=== PATIENT | male | born 1970 | race Hispanic/Latino ===

== ENCOUNTER 2018-06-17 09:04 | Emergency (ER) | payer SELFPAY ==
[2018-06-17 09:25] LABS: BASOPHILS % (AUTO) 1.2 % (0.0-5.0); EOSINOPHILS % (AUTO) 3.8 % (0.0-8.0); LYMPHOCYTES % (AUTO) 23.6 % (21.0-51.0); MEAN CORPUSCULAR HEMOGLOBIN 29.9 pg (27.0-33.0); MEAN CORPUSCULAR HGB CONC 33.9 g/dL (32.0-36.0); MEAN CORPUSCULAR VOLUME 88.2 fL (79-99); MONOCYTES % (AUTO) 7.1 % (3.0-13.0); NEUTROPHILS % (AUTO) 64.3 % (40.0-77.0); PLATELET COUNT (AUTO) 278 K/uL (130-400); RED BLOOD CELL COUNT(AUTO) 4.65 MIL/uL (4.50-6.20); RED CELL DISTRIBUTION WIDTH 13.2 % (11.0-15.5)
[2018-06-17 09:38] LABS: ALBUMIN 3.5 g/dL (3.5-5.0); BILIRUBIN,TOTAL 0.4 mg/dL (0.2-1.0); CREATININE 1.3 mg/dL (0.5-1.5); POTASSIUM 3.6 mmol/L (3.5-5.1); TOTAL PROTEIN, SERUM 7.8 g/dL (6.0-8.3)
[2018-06-17] MEDS ORDERED: INSULIN HUMULIN R 100 UNIT/ML 3ML ONE (11:00)
== END 2018-06-17 12:32 | disposition home or self-care (01) ==
LOC: EDH 09:04
DX: R07.89 Other chest pain (principal); F14.10 Cocaine abuse, uncomplicated; Z72.0 Tobacco use
CPT/HCPCS: 36415; 80053; 84484 ×2; 85025; 93005; 96374; 99285; J1815

== ENCOUNTER 2019-08-26 09:11 | Emergency (ER) | payer OTHER ==
[2019-08-26 09:41] LABS: BASOPHILS % (AUTO) 0.7 % (0.0-5.0); EOSINOPHILS % (AUTO) 1.2 % (0.0-8.0); HEMATOCRIT 46.6 % (42-54); LYMPHOCYTES % (AUTO) 20.6 % (21.0-51.0); MEAN CORPUSCULAR HEMOGLOBIN 28.5 pg (27.0-33.0); MEAN CORPUSCULAR HGB CONC 32.8 g/dL (32.0-36.0); MEAN CORPUSCULAR VOLUME 86.9 fL (79-99); MONOCYTES % (AUTO) 4.6 % (3.0-13.0); NEUTROPHILS % (AUTO) 72.5 % (40.0-77.0); PLATELET COUNT (AUTO) 324 K/uL (130-400); RED BLOOD CELL COUNT(AUTO) 5.36 MIL/uL (4.50-6.20); RED CELL DISTRIBUTION WIDTH 11.9 % (11.0-15.5); WHITE BLOOD COUNT (AUTO) 12.7 K/uL (4.8-10.8)
[2019-08-26] MEDS ORDERED: SODIUM CHLORIDE 0.9% 1000ML 1,000 ML IV ONE ×2 (09:41→11:06)
[2019-08-26 09:47] LABS: APPEARANCE,URINE Clear (CLEAR); BILIRUBIN,URINE Negative (NEGATIVE); COLOR,URINE Yellow (YELLOW); GLUCOSE, URINE (UA) >=1000 mg/dL (NEGATIVE); KETONES,URINE Negative (NEGATIVE); LEUKOCYTE ESTERASE ,URINE Trace (NEGATIVE); NITRATE,URINE Negative (NEGATIVE); OCCULT BLOOD,URINE Negative (NEGATIVE); PROTEIN,URINE Negative (NEGATIVE); UROBILINOGEN,URINE 0.2 mg/dL (0.2-1.0)
[2019-08-26 09:48] LABS: POTASSIUM 4.6 mmol/L (3.5-5.1)
[2019-08-26 09:53] LABS: BILIRUBIN,TOTAL 0.5 mg/dL (0.2-1.0); TOTAL PROTEIN, SERUM 9.1 g/dL (6.0-8.3)
[2019-08-26 09:57] LABS: BACTERIA,URINE Rare /HPF (None Seen); SQUAMOUS EPITHELIAL CELL,UR Rare /HPF (0-2)
[2019-08-26 10:10] LABS: ABG OXYGEN SATURATION 47.6 % (95.0-99.0); BASE EXCESS,VENOUS BLOOD GAS -1.5 (-2.0-3.0); HCO3,VENOUS BLOOD GAS 25.1 (21.0-28.0); PCO2,VENOUS BLOOD GAS 49 (35-48); PH,VENOUS BLOOD GAS 7.327 (7.350-7.450)
[2019-08-26] MEDS ORDERED: INSULIN HUMULIN R 100 UNIT/ML 3ML ONE (10:25)
== END 2019-08-26 12:31 | disposition home or self-care (01) ==
LOC: EDH 09:11
DX: E11.65 Type 2 diabetes mellitus with hyperglycemia (principal); R20.8 Other disturbances of skin sensation; Z72.0 Tobacco use
CPT/HCPCS: 36415; 36600; 71045; 80053; 81001; 82010; 82803; 82948 ×2; 85025; 93005; 96361 ×2; 96374; 99285; J1815; J7030 ×2

== ENCOUNTER 2020-03-02 17:17 | Emergency (ER) | payer OTHER, SELFPAY ==
[2020-03-02 20:40] LABS: ALBUMIN 3.8 g/dL (3.5-5.0); BILIRUBIN,TOTAL 0.3 mg/dL (0.2-1.0); CREATININE 1.1 mg/dL (0.5-1.5); POTASSIUM 3.9 mmol/L (3.5-5.1); TOTAL PROTEIN, SERUM 8.5 g/dL (6.0-8.3)
[2020-03-02] MEDS ORDERED: INSULIN HUMULIN R 100 UNIT/ML 3ML ONE (20:57)
[2020-03-02 20:59] LABS: BASOPHILS % (AUTO) 0.8 % (0.0-5.0); EOSINOPHILS % (AUTO) 1.3 % (0.0-8.0); HEMATOCRIT 47.4 % (42-54); LYMPHOCYTES % (AUTO) 21.3 % (21.0-51.0); MEAN CORPUSCULAR HEMOGLOBIN 28.9 pg (27.0-33.0); MEAN CORPUSCULAR HGB CONC 33.8 g/dL (32.0-36.0); MEAN CORPUSCULAR VOLUME 85.6 fL (79-99); MONOCYTES % (AUTO) 4.2 % (3.0-13.0); PLATELET COUNT (AUTO) 256 K/uL (130-400); RED BLOOD CELL COUNT(AUTO) 5.54 MIL/uL (4.50-6.20); RED CELL DISTRIBUTION WIDTH 12.4 % (11.0-15.5); WHITE BLOOD COUNT (AUTO) 12.7 K/uL (4.8-10.8)
== END 2020-03-02 21:53 | disposition home or self-care (01) ==
LOC: EDH 17:17
DX: E11.65 Type 2 diabetes mellitus with hyperglycemia (principal); F14.10 Cocaine abuse, uncomplicated; Z20.828 Contact with and (suspected) exposure to other viral communicable diseases; I10 Essential (primary) hypertension; Z72.0 Tobacco use
CPT/HCPCS: 36415; 71045; 80053; 82550; 84484; 85025; 93005; 96372; 99285; J1815; U0003

== ENCOUNTER 2020-12-23 15:00 | Emergency (ER) | payer OTHER ==
[2020-12-23 15:24] LABS: APPEARANCE,URINE Clear (CLEAR); BILIRUBIN,URINE Negative (NEGATIVE); COLOR,URINE Yellow (YELLOW); GLUCOSE, URINE (UA) >=1000 mg/dL (NEGATIVE); KETONES,URINE Negative (NEGATIVE); LEUKOCYTE ESTERASE ,URINE Negative (NEGATIVE); NITRATE,URINE Negative (NEGATIVE); OCCULT BLOOD,URINE Negative (NEGATIVE); PROTEIN,URINE Negative (NEGATIVE)
[2020-12-23] MEDS ORDERED: INSULIN HUMULIN R 100 UNIT/ML 3ML ONE (15:25)
[2020-12-23] MEDS ORDERED: SODIUM CHLORIDE 0.9% 1000ML 1,000 ML IV ONE (15:25)
[2020-12-23 15:28] LABS: BASOPHILS % (AUTO) 1.2 % (0.0-5.0); EOSINOPHILS % (AUTO) 3.7 % (0.0-8.0); HEMATOCRIT 43.9 % (42-54); LYMPHOCYTES % (AUTO) 25.3 % (21.0-51.0); MEAN CORPUSCULAR VOLUME 84.9 fL (79-99); MONOCYTES % (AUTO) 7.3 % (3.0-13.0); NEUTROPHILS % (AUTO) 62.2 % (40.0-77.0); PLATELET COUNT (AUTO) 303 K/uL (130-400); RED BLOOD CELL COUNT(AUTO) 5.17 MIL/uL (4.50-6.20); RED CELL DISTRIBUTION WIDTH 12.3 % (11.0-15.5); WHITE BLOOD COUNT (AUTO) 9.5 K/uL (4.8-10.8)
[2020-12-23 15:34] LABS: BACTERIA,URINE Rare /HPF (None Seen); RBC,URINE 0-1 /HPF (0-1); SQUAMOUS EPITHELIAL CELL,UR Few /HPF (0-2); YEAST,URINE BUDDING Rare /HPF (None Seen)
[2020-12-23 15:52] LABS: ALBUMIN 3.7 g/dL (3.5-5.0); BILIRUBIN,TOTAL 0.3 mg/dL (0.2-1.0); POTASSIUM 3.8 mmol/L (3.5-5.1); TOTAL PROTEIN, SERUM 8.3 g/dL (6.0-8.3)
== END 2020-12-23 16:30 | disposition home or self-care (01) ==
LOC: EDH 15:00 → EEVIPCON 15:00 → EDH 16:30
DX: E11.65 Type 2 diabetes mellitus with hyperglycemia (principal); E11.22 Type 2 diabetes mellitus with diabetic chronic kidney disease; I12.0 Hypertensive chronic kidney disease with stage 5 chronic kidney disease or end stage renal disease; N18.6 End stage renal disease
CPT/HCPCS: 36415; 80053; 81001; 82010; 82948 ×2; 83690; 85025; 96361; 96374; 99283; J1815; J7030

== ENCOUNTER 2021-06-04 16:23 | Emergency (ER) | payer SELFPAY ==
[~2021-06-04] VITALS: Ht 170.2 cm; Wt 77.1 kg
[2021-06-04 16:48] LABS: BASOPHILS % (AUTO) 1.5 % (0.0-5.0); EOSINOPHILS % (AUTO) 3.6 % (0.0-8.0); HEMATOCRIT 37.1 % (42-54); LYMPHOCYTES % (AUTO) 25.4 % (21.0-51.0); MEAN CORPUSCULAR HEMOGLOBIN 29.1 pg (27.0-33.0); MEAN CORPUSCULAR HGB CONC 33.4 g/dL (32.0-36.0); MEAN CORPUSCULAR VOLUME 87.1 fL (79-99); MONOCYTES % (AUTO) 7.9 % (3.0-13.0); NEUTROPHILS % (AUTO) 61.1 % (40.0-77.0); PLATELET COUNT (AUTO) 264 K/uL (130-400); RED BLOOD CELL COUNT(AUTO) 4.26 MIL/uL (4.50-6.20); RED CELL DISTRIBUTION WIDTH 13.1 % (11.0-15.5); WHITE BLOOD COUNT (AUTO) 8.4 K/uL (4.8-10.8)
[2021-06-04 17:05] LABS: ALBUMIN 3.2 g/dL (3.5-5.0); BILIRUBIN,TOTAL 0.3 mg/dL (0.2-1.0); CREATININE 1.1 mg/dL (0.5-1.5); TOTAL PROTEIN, SERUM 7.6 g/dL (6.0-8.3)
[2021-06-04] MEDS ORDERED: INSULIN HUMULIN R 100 UNIT/ML 3ML SQ ONE (17:30)
[2021-06-04 17:32] VITALS: BP 124/81
== END 2021-06-04 17:59 | disposition home or self-care (01) ==
LOC: EDH 16:23
DX: R00.2 Palpitations (principal); E11.9 Type 2 diabetes mellitus without complications; Z79.4 Long term (current) use of insulin
CPT/HCPCS: 36415; 71045; 80053; 84484; 85025; 93005; 96372; 99285; J1815

== ENCOUNTER 2023-07-20 15:06 | Inpatient (IN) | payer OTHER ==
[~2023-07-20] VITALS: Ht 157.5 cm; Wt 80.6 kg
[2023-07-20] MEDS ORDERED: 0.9%NACL 1000ML 1,000 ML IV ONE ×2 (16:00→17:00)
[2023-07-20] MEDS ORDERED: MORPHINE 4 MG SYG IVP ONE (16:00)
[2023-07-20] MEDS ORDERED: ONDANSETRON 4MG INJ IVP ONE (16:00)
[2023-07-20 16:02] LABS: BASOPHILS # (AUTO) 0.11 K/uL (0.00-0.20); BASOPHILS % (AUTO) 0.7 % (0.0-5.0); EOSINOPHILS # (AUTO) 0.17 K/uL (0.00-0.70); HEMATOCRIT 38.9 % (42-54); IMMATURE GRANULOCYTE ABSOLUTE 0.07 K/uL (0-1); LYMPHOCYTES # (AUTO) 2.6 K/uL (1.0-4.8); LYMPHOCYTES % (AUTO) 15.6 % (21.0-51.0); MEAN CORPUSCULAR HEMOGLOBIN 29.3 pg (27.0-33.0); MEAN CORPUSCULAR HGB CONC 34.2 g/dL (32.0-36.0); MEAN CORPUSCULAR VOLUME 85.7 fL (79-99); MONOCYTES # (AUTO) 1.2 K/uL (0.1-1.0); NEUTROPHILS # (AUTO) 12.7 K/uL (1.8-7.7); NEUTROPHILS % (AUTO) 75.3 % (40.0-77.0); PLATELET COUNT (AUTO) 235 K/uL (130-400); RED BLOOD CELL COUNT(AUTO) 4.54 MIL/uL (4.50-6.20); RED CELL DISTRIBUTION WIDTH 12.4 % (11.0-15.5); WHITE BLOOD COUNT (AUTO) 16.9 K/uL (4.8-10.8)
[2023-07-20 16:10] LABS: INR < 0.93 (0.85-1.15); PROTHROMBIN TIME 10.5 SEC (9.6-11.6)
[2023-07-20 16:11] LABS: PARTIAL THROMBOPLASTIN TIME 28.6 SEC (26.3-35.5)
[2023-07-20 16:27] LABS: ALBUMIN 2.8 g/dL (3.5-5.0); BILIRUBIN,TOTAL 0.4 mg/dL (0.2-1.0); CREATININE 1.2 mg/dL (0.5-1.5); POTASSIUM 3.5 mmol/L (3.5-5.1); TOTAL PROTEIN, SERUM 7.8 g/dL (6.0-8.3)
[2023-07-20] MEDS ORDERED: ZOSYN 3.375GM +NS 50ML IV ONE (17:00)
[2023-07-20] MEDS ORDERED: VANCOMYCIN KIT 1 GM/250 ML IV.KIT IV ONE (17:00)
[2023-07-20] MEDS: 0.9%NACL 1000ML 1,000 ML IV SCH (17:30)
[2023-07-20] MEDS ORDERED: INSULIN HUMULIN R 100 UNIT/ML 3ML IV ONE (17:30)
[2023-07-20] MEDS ORDERED: CEFEPIME HCL 2 GM VIAL IVPB SCH (17:30)
[2023-07-20] MEDS ORDERED: IPRATROPIUM/ALBUTEROL SULFATE 3 ML SOLUTION IH PRN (18:00)
[2023-07-20] MEDS: CEFEPIME HCL 2 GM VIAL IVPB SCH (18:12)
[2023-07-20 18:29] LABS: THYROID STIMULATING HORMONE 0.93 uIU/mL (0.36-3.74)
[2023-07-20 18:35] LABS: HIV 1&2 ANTIBODY Non-Reactive (Negative)
[2023-07-20 18:36] LABS: HIV-1 p24 Antigen Non-Reactive (Negative)
[2023-07-20] MEDS ORDERED: VANCOMYCIN 500MG+NS 100ML 100 ML IV ONE (19:21)
[2023-07-20] MEDS ORDERED: NITROGLYCERIN 0.4 MG SL TAB SL PRN (19:30)
[2023-07-20] MEDS ORDERED: THIAMINE HCL 100 MG/ML 2ML VIAL IVP ONE (19:30)
[2023-07-20] MEDS ORDERED: FOLIC ACID 5 MG/ML VIAL IV ONE (19:30)
[2023-07-20] MEDS ORDERED: PHARMACY COMMUNICATION MISC SCH (19:30)
[2023-07-20] MEDS: BUDESONIDE 0.5 MG/2 ML INH IH SCH (19:44)
[2023-07-20 19:45] VITALS: PULSE 76; RESP 20
[2023-07-20] MEDS ORDERED: VANCOMYCIN PROTOCOL PER PHARMACY IV SCH (20:00)
[2023-07-20 20:19] VITALS: BP 135/70; PULSE 79; RESP 16
[2023-07-20] MEDS ORDERED: POTASSIUM CHLORIDE 20MEQ/100ML 100 ML IV PRN (20:30)
[2023-07-20] MEDS ORDERED: POTASSIUM CHLORIDE 10% ELIXIR 20 MEQ/15 ML UDCUP PO PRN (20:30)
[2023-07-20] MEDS: PANTOPRAZOLE 40 MG/VIAL IVP SCH (20:34)
[2023-07-20] MEDS: ASPIRIN 81 MG EC TAB PO SCH (20:35)
[2023-07-20] MEDS: KCL 20 MEQ ERTAB PO PRN ×2 (20:36→23:23)
[2023-07-20] MEDS: INSULIN GLARGINE 100 UNITS/ML 10 ML VIAL SQ SCH (20:39)
[2023-07-20] MEDS: INSULIN HUMULIN R 100 UNIT/ML 3ML SQ SCH (20:40)
[2023-07-20 22:00] LABS: SARS-CoV-2, RNA, NAAT NEGATIVE SARS CoV-2 (NEGATIVE)
[2023-07-20 22:04] LABS: INFLUENZA TYPE A Negative For Type A (NEGATIVE); INFLUENZA TYPE B Negative For Type B (NEGATIVE)
[2023-07-20 22:17] VITALS: BP 142/61; PULSE 86; RESP 18
[2023-07-20] MEDS: METRONIDAZOLE 500MG/100ML BAG 100 ML IVPB SCH (22:28)
[2023-07-20 23:00] VITALS: BP 126/64; PULSE 66; RESP 18
[2023-07-21] VITALS (7 sets, daily range): BP systolic 98–136; BP diastolic 63–77; PULSE 78–88; RESP 14–18; O2SAT 96–98
[2023-07-21 04:04] LABS: BASOPHILS # (AUTO) 0.09 K/uL (0.00-0.20); BASOPHILS % (AUTO) 0.7 % (0.0-5.0); EOSINOPHILS # (AUTO) 0.24 K/uL (0.00-0.70); EOSINOPHILS % (AUTO) 1.7 % (0.0-8.0); HEMATOCRIT 36.5 % (42-54); IMMATURE GRANULOCYTE ABSOLUTE 0.06 K/uL (0-1); LYMPHOCYTES # (AUTO) 2.8 K/uL (1.0-4.8); LYMPHOCYTES % (AUTO) 20.7 % (21.0-51.0); MEAN CORPUSCULAR HEMOGLOBIN 28.4 pg (27.0-33.0); MEAN CORPUSCULAR HGB CONC 33.2 g/dL (32.0-36.0); MEAN CORPUSCULAR VOLUME 85.7 fL (79-99); MONOCYTES # (AUTO) 1.2 K/uL (0.1-1.0); MONOCYTES % (AUTO) 8.7 % (3.0-13.0); NEUTROPHILS # (AUTO) 9.3 K/uL (1.8-7.7); NEUTROPHILS % (AUTO) 67.8 % (40.0-77.0); PLATELET COUNT (AUTO) 230 K/uL (130-400); RED BLOOD CELL COUNT(AUTO) 4.26 MIL/uL (4.50-6.20); RED CELL DISTRIBUTION WIDTH 12.7 % (11.0-15.5); WHITE BLOOD COUNT (AUTO) 13.7 K/uL (4.8-10.8)
[2023-07-21 04:39] LABS: ALBUMIN 2.5 g/dL (3.5-5.0); BILIRUBIN,TOTAL 0.4 mg/dL (0.2-1.0); CREATININE 0.9 mg/dL (0.5-1.5); MAGNESIUM 1.9 mg/dL (1.80-2.40); POTASSIUM 3.5 mmol/L (3.5-5.1); TOTAL PROTEIN, SERUM 7.3 g/dL (6.0-8.3)
[2023-07-21] MEDS: METRONIDAZOLE 500MG/100ML BAG 100 ML IVPB SCH ×3 (05:14→19:35)
[2023-07-21] MEDS: 0.9%NACL 1000ML 1,000 ML IV SCH ×2 (05:14→16:31)
[2023-07-21] MEDS: INSULIN HUMULIN R 100 UNIT/ML 3ML SQ SCH ×5 (05:26→20:23)
[2023-07-21] MEDS: BUDESONIDE 0.5 MG/2 ML INH IH SCH ×2 (06:19→18:00)
[2023-07-21] MEDS: KCL 20 MEQ ERTAB PO PRN ×2 (08:40→17:36)
[2023-07-21] MEDS: MULTIVITAMIN TABLET PO SCH (08:40)
[2023-07-21] MEDS: HYDROMORPHONE 0.5 MG SYG (0.5MG/0.5ML) IVP PRN ×2 (10:37→17:37)
[2023-07-21] MEDS ORDERED: GADOTERATE MEGLUMINE 10 MMOL/20 ML VIAL IV ONE (14:30)
[2023-07-21] MEDS ORDERED: DIPH,PERTUSS(ACELL),TET VAC/PF 0.5 ML VIAL IM ONE ×2 (14:30→16:00)
[2023-07-21] MEDS: CEFEPIME HCL 2 GM VIAL IVPB SCH (17:35)
[2023-07-21] MEDS: PANTOPRAZOLE 40 MG/VIAL IVP SCH (17:40)
[2023-07-21] MEDS: ASPIRIN 81 MG EC TAB PO SCH (18:45)
[2023-07-21] MEDS: VANCOMYCIN 1.5 GM/250 ML BAG 250 ML IV SCH (18:45)
[2023-07-21] MEDS: INSULIN GLARGINE 100 UNITS/ML 10 ML VIAL SQ SCH (20:23)
[2023-07-22] VITALS (10 sets, daily range): BP systolic 120–144; BP diastolic 57–77; PULSE 74–88; RESP 16–20; O2SAT 97–98
[2023-07-22] MEDS: METRONIDAZOLE 500MG/100ML BAG 100 ML IVPB SCH ×3 (05:12→19:25)
[2023-07-22 05:24] LABS: HEMATOCRIT 34.8 % (42-54); MEAN CORPUSCULAR HEMOGLOBIN 29.5 pg (27.0-33.0); MEAN CORPUSCULAR VOLUME 89.2 fL (79-99); RED BLOOD CELL COUNT(AUTO) 3.9 MIL/uL (4.50-6.20); RED CELL DISTRIBUTION WIDTH 12.8 % (11.0-15.5); WHITE BLOOD COUNT (AUTO) 15.3 K/uL (4.8-10.8)
[2023-07-22 05:53] LABS: ALBUMIN 2.2 g/dL (3.5-5.0); BILIRUBIN,TOTAL 0.2 mg/dL (0.2-1.0); CREATININE 0.7 mg/dL (0.5-1.5); MAGNESIUM 1.7 mg/dL (1.80-2.40); POTASSIUM 3.3 mmol/L (3.5-5.1); TOTAL PROTEIN, SERUM 6.9 g/dL (6.0-8.3)
[2023-07-22] MEDS: KCL 20 MEQ ERTAB PO PRN ×3 (06:14→12:37)
[2023-07-22] MEDS: INSULIN HUMULIN R 100 UNIT/ML 3ML SQ SCH ×7 (06:27→20:33)
[2023-07-22] MEDS: BUDESONIDE 0.5 MG/2 ML INH IH SCH ×2 (06:28→18:56)
[2023-07-22] MEDS: MULTIVITAMIN TABLET PO SCH (08:44)
[2023-07-22] MEDS: HYDROMORPHONE 0.5 MG SYG (0.5MG/0.5ML) IVP PRN ×3 (08:45→20:28)
[2023-07-22] MEDS: 0.9%NACL 1000ML 1,000 ML IV SCH ×2 (10:43→19:25)
[2023-07-22] MEDS ORDERED: POTASSIUM CHLORIDE 20MEQ/100ML 100 ML IV ONE (16:00)
[2023-07-22] MEDS ORDERED: MAGNESIUM 2GM PREMIX 50ML 50 ML IV SCH (16:00)
[2023-07-22] MEDS: CEFEPIME HCL 2 GM VIAL IVPB SCH (17:33)
[2023-07-22] MEDS: PANTOPRAZOLE 40 MG/VIAL IVP SCH (17:33)
[2023-07-22] MEDS: ACETAMINOPHEN 500 MG TABLET PO PRN (17:38)
[2023-07-22] MEDS: VANCOMYCIN 1.5 GM/250 ML BAG 250 ML IV SCH (18:36)
[2023-07-22] MEDS: ASPIRIN 81 MG EC TAB PO SCH (19:25)
[2023-07-22] MEDS: INSULIN GLARGINE 100 UNITS/ML 10 ML VIAL SQ SCH (20:32)
[2023-07-23] VITALS (29 sets, daily range): BP systolic 114–153; BP diastolic 59–78; PULSE 68–86; RESP 16–26; O2SAT 92–98
[2023-07-23] MEDS: METRONIDAZOLE 500MG/100ML BAG 100 ML IVPB SCH ×3 (04:40→21:41)
[2023-07-23] MEDS: HYDROMORPHONE 0.5 MG SYG (0.5MG/0.5ML) IVP PRN ×2 (04:41→14:03)
[2023-07-23 04:48] LABS: HEMATOCRIT 34.5 % (42-54); MEAN CORPUSCULAR HEMOGLOBIN 28.7 pg (27.0-33.0); MEAN CORPUSCULAR HGB CONC 32.5 g/dL (32.0-36.0); MEAN CORPUSCULAR VOLUME 88.5 fL (79-99); RED BLOOD CELL COUNT(AUTO) 3.9 MIL/uL (4.50-6.20); WHITE BLOOD COUNT (AUTO) 13.9 K/uL (4.8-10.8)
[2023-07-23 05:05] LABS: ALBUMIN 2.1 g/dL (3.5-5.0); BILIRUBIN,TOTAL 0.2 mg/dL (0.2-1.0); CREATININE 0.7 mg/dL (0.5-1.5); MAGNESIUM 2.2 mg/dL (1.80-2.40); POTASSIUM 3.8 mmol/L (3.5-5.1); TOTAL PROTEIN, SERUM 6.9 g/dL (6.0-8.3)
[2023-07-23] MEDS: INSULIN HUMULIN R 100 UNIT/ML 3ML SQ SCH ×7 (06:09→21:49)
[2023-07-23] MEDS: BUDESONIDE 0.5 MG/2 ML INH IH SCH ×2 (06:13→18:34)
[2023-07-23] MEDS ORDERED: KETAMINE 50MG/ML SYRINGE 50 MG/ML DISP.SYRIN ONE (07:17)
[2023-07-23] MEDS ORDERED: PROPOFOL 1000 MG/100 ML 100 ML IV ONE (07:17)
[2023-07-23] MEDS ORDERED: MIDAZOLAM HCL 1 MG/ML 2ML VIAL ONE (07:19)
[2023-07-23] MEDS ORDERED: LIDOCAINE HCL 1% 20 ML VIAL ONE (07:22)
[2023-07-23] MEDS ORDERED: BUPIVACAINE/PF 0.25% 30ML VIAL IJ ONE (07:23)
[2023-07-23] MEDS: 0.9%NACL 1000ML 1,000 ML IV SCH (08:00)
[2023-07-23] MEDS: MULTIVITAMIN TABLET PO SCH (09:57)
[2023-07-23] MEDS ORDERED: HYDROMORPHONE 0.5 MG SYG (0.5MG/0.5ML) IVP ONE (10:30)
[2023-07-23] MEDS ORDERED: KETOROLAC 15MG/ML VIAL (15MG/ML) IV PRN (16:30)
[2023-07-23] MEDS: CEFEPIME HCL 2 GM VIAL IVPB SCH (17:39)
[2023-07-23] MEDS: PANTOPRAZOLE 40 MG/VIAL IVP SCH (17:40)
[2023-07-23] MEDS: VANCOMYCIN 1.5 GM/250 ML BAG 250 ML IV SCH (18:33)
[2023-07-23] MEDS: ASPIRIN 81 MG EC TAB PO SCH (18:33)
[2023-07-23] MEDS: INSULIN GLARGINE 100 UNITS/ML 10 ML VIAL SQ SCH (21:50)
[2023-07-24] VITALS: BP 129/76; PULSE 71; RESP 18
[2023-07-24] MEDS: ACETAMINOPHEN 500 MG TABLET PO PRN (00:17)
[2023-07-24 04:00] VITALS: BP 146/76; PULSE 77; RESP 18
[2023-07-24] MEDS: METRONIDAZOLE 500MG/100ML BAG 100 ML IVPB SCH ×2 (04:54→15:11)
[2023-07-24 04:58] LABS: HEMATOCRIT 34.5 % (42-54); MEAN CORPUSCULAR HEMOGLOBIN 28.8 pg (27.0-33.0); MEAN CORPUSCULAR HGB CONC 32.8 g/dL (32.0-36.0); MEAN CORPUSCULAR VOLUME 87.8 fL (79-99); RED BLOOD CELL COUNT(AUTO) 3.93 MIL/uL (4.50-6.20); RED CELL DISTRIBUTION WIDTH 12.9 % (11.0-15.5); WHITE BLOOD COUNT (AUTO) 13.6 K/uL (4.8-10.8)
[2023-07-24 05:09] LABS: BILIRUBIN,TOTAL 0.3 mg/dL (0.2-1.0); CREATININE 0.9 mg/dL (0.5-1.5); POTASSIUM 3.7 mmol/L (3.5-5.1); TOTAL PROTEIN, SERUM 6.8 g/dL (6.0-8.3)
[2023-07-24] MEDS: INSULIN HUMULIN R 100 UNIT/ML 3ML SQ SCH ×6 (05:28→17:00)
[2023-07-24 06:26] VITALS: PULSE 88; RESP 18; O2SAT 95
[2023-07-24 08:00] VITALS: BP 123/73; PULSE 73; RESP 17; O2SAT 92
[2023-07-24] MEDS ORDERED: VANCOMYCIN 750MG VIAL IVPB SCH (09:00)
[2023-07-24] MEDS: MULTIVITAMIN TABLET PO SCH (09:12)
[2023-07-24 11:53] VITALS: BP 122/81; PULSE 65; RESP 20
== END 2023-07-24 17:00 | disposition left against medical advice (07) | DRG 854 ==
LOC: EDH 15:06 → EDHIP 15:07 → UNDOADMIN 17:28 → 4DH 21:41 → EDHIP 21:41
PROVIDERS: ADMIT Internal Medicine; ATTEND Internal Medicine
PROC: 0J9R0ZZ Drainage of Left Foot Subcutaneous Tissue and Fascia, Open Approach (ICD-10-PCS; 2023-07-23)
PROC: 0JBR0ZZ Excision of Left Foot Subcutaneous Tissue and Fascia, Open Approach (ICD-10-PCS; principal; 2023-07-23 07:18)
DX: A41.9 Sepsis, unspecified organism (principal); E87.20 Acidosis, unspecified; L03.116 Cellulitis of left lower limb; L02.612 Cutaneous abscess of left foot; E11.621 Type 2 diabetes mellitus with foot ulcer; L97.529 Non-pressure chronic ulcer of other part of left foot with unspecified severity; E11.65 Type 2 diabetes mellitus with hyperglycemia; F14.10 Cocaine abuse, uncomplicated; Z20.822 Contact with and (suspected) exposure to COVID-19; E78.5 Hyperlipidemia, unspecified; H54.62 Unqualified visual loss, left eye, normal vision right eye; E11.51 Type 2 diabetes mellitus with diabetic peripheral angiopathy without gangrene; R07.89 Other chest pain; B95.4 Other streptococcus as the cause of diseases classified elsewhere; B96.6 Bacteroides fragilis [B. fragilis] as the cause of diseases classified elsewhere; I10 Essential (primary) hypertension; Z72.0 Tobacco use; Z79.4 Long term (current) use of insulin; Z82.49 Family history of ischemic heart disease and other diseases of the circulatory system; Z91.199 Patient's noncompliance with other medical treatment and regimen due to unspecified reason
CPT/HCPCS: 36415; 70450; 71045; 73620; 73720; 76770; 80053; 80202; 82010; 82550; 82948; 83036; 83605; 83735; 84145; 84439; 84443; 84484; 85025; 85027; 85610; 85651; 85730; 86140; 86701; 87040; 87070; 87076; 87077; 87186; 87205; 87390; 87635; 87804; 90715; 92610; 93005; 93306; 93356; 93925; 94640; 94664; 96374; 96375; C9113; G0378; J0692; J1170; J1815; J1885; J2250; J2270; J2405; J2543; J2704; J3370; J3411; J3475; J3490; A4216; A4222; A4223; A9575; J0665

== ENCOUNTER 2023-07-30 09:58 | Inpatient (IN) | payer OTHER ==
[~2023-07-30] VITALS: Ht 157.5 cm; Wt 80.1 kg
[2023-07-30 10:39] LABS: BASOPHILS % (AUTO) 0.4 % (0.0-5.0); EOSINOPHILS # (AUTO) 0.02 K/uL (0.00-0.70); EOSINOPHILS % (AUTO) 0.1 % (0.0-8.0); HEMATOCRIT 33.6 % (42-54); IMMATURE GRANULOCYTE ABSOLUTE 0.23 K/uL (0-1); LYMPHOCYTES % (AUTO) 8.1 % (21.0-51.0); MEAN CORPUSCULAR HEMOGLOBIN 28.3 pg (27.0-33.0); MEAN CORPUSCULAR HGB CONC 33.3 g/dL (32.0-36.0); MEAN CORPUSCULAR VOLUME 84.8 fL (79-99); MONOCYTES # (AUTO) 1.7 K/uL (0.1-1.0); MONOCYTES % (AUTO) 6.9 % (3.0-13.0); NEUTROPHILS # (AUTO) 20.6 K/uL (1.8-7.7); NEUTROPHILS % (AUTO) 83.6 % (40.0-77.0); PLATELET COUNT (AUTO) 498 K/uL (130-400); RED BLOOD CELL COUNT(AUTO) 3.96 MIL/uL (4.50-6.20); RED CELL DISTRIBUTION WIDTH 12.7 % (11.0-15.5); WHITE BLOOD COUNT (AUTO) 24.7 K/uL (4.8-10.8)
[2023-07-30 10:57] LABS: CREATININE 1.1 mg/dL (0.5-1.5); POTASSIUM 3.6 mmol/L (3.5-5.1)
[2023-07-30] MEDS ORDERED: 0.9%NACL 1000ML 1,000 ML IV ONE (11:00)
[2023-07-30] MEDS ORDERED: ONDANSETRON 4MG INJ IVP ONE (11:00)
[2023-07-30] MEDS ORDERED: MORPHINE 4 MG SYG IVP ONE (11:00)
[2023-07-30 11:02] LABS: BILIRUBIN,TOTAL 0.4 mg/dL (0.2-1.0); TOTAL PROTEIN, SERUM 8.7 g/dL (6.0-8.3)
[2023-07-30] MEDS ORDERED: INSULIN HUMULIN R 100 UNIT/ML 3ML IV ONE (11:30)
[2023-07-30] MEDS ORDERED: ZOSYN 3.375GM +NS 50ML IVPB ONE (11:30)
[2023-07-30] MEDS ORDERED: VANCOMYCIN PROTOCOL PER PHARMACY IV SCH (13:00)
[2023-07-30] MEDS: 0.9%NACL 1000ML 1,000 ML IV SCH ×2 (13:53→23:06)
[2023-07-30] MEDS: VANCOMYCIN 1G/250ML KIT 250 ML IV SCH (13:55)
[2023-07-30 13:56] LABS: INR 1.02 (0.85-1.15); PROTHROMBIN TIME 11.8 SEC (9.6-11.6)
[2023-07-30] MEDS: KETOROLAC 15MG/ML VIAL (15MG/ML) IV PRN (15:14)
[2023-07-30] MEDS: INSULIN HUMULIN R 100 UNIT/ML 3ML SQ SCH (17:39)
[2023-07-30] MEDS: ZOSYN 3.375GM +NS 50ML IVPB SCH (17:39)
[2023-07-30] MEDS ORDERED: 0.9%NACL 50ML IV SCH (18:00)
[2023-07-30] MEDS: INSULIN GLARGINE 100 UNITS/ML 10 ML VIAL SQ SCH (22:42)
[2023-07-30] MEDS ORDERED: ACETAMINOPHEN 325 MG TAB ONE (22:57)
[2023-07-30] MEDS ORDERED: ACETAMINOPHEN 325 MG TAB PO PRN (23:00)
[2023-07-30] MEDS: MORPHINE 2 MG SYG IVP PRN (23:33)
[2023-07-31] VITALS (21 sets, daily range): BP systolic 123–161; BP diastolic 66–91; PULSE 61–90; RESP 15–21; O2SAT 67
[2023-07-31] MEDS: INSULIN HUMULIN R 100 UNIT/ML 3ML SQ SCH ×4 (00:22→16:52)
[2023-07-31] MEDS: ZOSYN 3.375GM +NS 50ML IVPB SCH ×3 (01:47→17:10)
[2023-07-31] MEDS: VANCOMYCIN 1G/250ML KIT 250 ML IV SCH ×2 (03:01→15:00)
[2023-07-31 04:38] LABS: BASOPHILS # (AUTO) 0.07 K/uL (0.00-0.20); BASOPHILS % (AUTO) 0.3 % (0.0-5.0); EOSINOPHILS # (AUTO) 0.07 K/uL (0.00-0.70); EOSINOPHILS % (AUTO) 0.3 % (0.0-8.0); HEMATOCRIT 29.4 % (42-54); IMMATURE GRANULOCYTE ABSOLUTE 0.22 K/uL (0-1); LYMPHOCYTES # (AUTO) 2.2 K/uL (1.0-4.8); MEAN CORPUSCULAR HEMOGLOBIN 28.5 pg (27.0-33.0); MEAN CORPUSCULAR HGB CONC 32.7 g/dL (32.0-36.0); MEAN CORPUSCULAR VOLUME 87.2 fL (79-99); MONOCYTES # (AUTO) 1.8 K/uL (0.1-1.0); MONOCYTES % (AUTO) 7.9 % (3.0-13.0); NEUTROPHILS # (AUTO) 17.8 K/uL (1.8-7.7); NEUTROPHILS % (AUTO) 80.5 % (40.0-77.0); PLATELET COUNT (AUTO) 420 K/uL (130-400); RED BLOOD CELL COUNT(AUTO) 3.37 MIL/uL (4.50-6.20); RED CELL DISTRIBUTION WIDTH 13.1 % (11.0-15.5); WHITE BLOOD COUNT (AUTO) 22.1 K/uL (4.8-10.8)
[2023-07-31 04:49] LABS: ALBUMIN 1.6 g/dL (3.5-5.0); BILIRUBIN,TOTAL 0.4 mg/dL (0.2-1.0); CREATININE 1.2 mg/dL (0.5-1.5); POTASSIUM 3.5 mmol/L (3.5-5.1); TOTAL PROTEIN, SERUM 7.6 g/dL (6.0-8.3)
[2023-07-31] MEDS ORDERED: BUPIVACAINE/PF 0.5% 30ML VIAL ONE (06:45)
[2023-07-31] MEDS ORDERED: LIDOCAINE HCL 1% 20 ML VIAL ONE (06:45)
[2023-07-31] MEDS ORDERED: 0.9%NACL 1000ML 1,000 ML IV ONE (06:58)
[2023-07-31] MEDS ORDERED: FENTANYL CITRATE PF 50 MCG/1 ML 2ML VIAL ONE (07:01)
[2023-07-31] MEDS ORDERED: MIDAZOLAM HCL 1 MG/ML 2ML VIAL ONE (07:01)
[2023-07-31] MEDS ORDERED: PROPOFOL 10 MG/ML 20ML VIAL IV ONE (07:01)
[2023-07-31] MEDS ORDERED: ONDANSETRON 4MG INJ ONE (07:21)
[2023-07-31] MEDS ORDERED: DEXAMETHASONE SOD PHOSPHATE 10MG/ML 1ML VIAL ONE (07:21)
[2023-07-31] MEDS: 0.9%NACL 1000ML 1,000 ML IV SCH ×2 (09:28→17:10)
[2023-07-31] MEDS: MORPHINE 2 MG SYG IVP PRN (09:58)
[2023-07-31] MEDS: KETOROLAC 15MG/ML VIAL (15MG/ML) IV PRN (11:23)
[2023-07-31] MEDS: ACETAMINOPHEN 325 MG TAB PO PRN (12:11)
[2023-07-31] MEDS ORDERED: INSULIN HUMULIN R 100 UNIT/ML 3ML SQ ONE (16:00)
[2023-07-31 16:04] LABS: ABG BASE EXCESS 0.3 mmol/L (-2.0-3.0); ABG HCO3 24.2 mmol/L (21.0-28.0); ABG OXYGEN SATURATION 94.1 % (95.0-99.0); ABG PCO2 37 mmHg (35-48); ABG PH 7.433 (7.35-7.450); PO2, ARTERIAL BG 67.4 mmHg (83.0-108.0); VENT MODE, BG ROOM AIR (ROOM AIR)
[2023-07-31] MEDS: INSULIN GLARGINE 100 UNITS/ML 10 ML VIAL SQ SCH (21:40)
[2023-07-31 22:31] LABS: GLUCOSE POC COMMENT Stat Lab Glu Request
[2023-08-01] MEDS: INSULIN HUMULIN R 100 UNIT/ML 3ML SQ SCH ×5 (00:04→20:52)
[2023-08-01] MEDS: VANCOMYCIN 1G/250ML KIT 250 ML IV SCH ×2 (01:21→14:10)
[2023-08-01] MEDS: ZOSYN 3.375GM +NS 50ML IVPB SCH ×3 (01:21→16:44)
[2023-08-01] MEDS: KETOROLAC 15MG/ML VIAL (15MG/ML) IV PRN ×2 (01:40→18:28)
[2023-08-01] MEDS: 0.9%NACL 1000ML 1,000 ML IV SCH ×2 (05:00→15:37)
[2023-08-01 05:07] VITALS: BP 145/80; PULSE 68; RESP 20
[2023-08-01 05:24] LABS: BASOPHILS # (AUTO) 0.08 K/uL (0.00-0.20); BASOPHILS % (AUTO) 0.3 % (0.0-5.0); EOSINOPHILS # (AUTO) 0.01 K/uL (0.00-0.70); HEMATOCRIT 31.3 % (42-54); IMMATURE GRANULOCYTE ABSOLUTE 0.41 K/uL (0-1); LYMPHOCYTES # (AUTO) 1.7 K/uL (1.0-4.8); LYMPHOCYTES % (AUTO) 5.3 % (21.0-51.0); MEAN CORPUSCULAR HEMOGLOBIN 28.6 pg (27.0-33.0); MEAN CORPUSCULAR HGB CONC 32.6 g/dL (32.0-36.0); MEAN CORPUSCULAR VOLUME 87.7 fL (79-99); MONOCYTES # (AUTO) 1.6 K/uL (0.1-1.0); MONOCYTES % (AUTO) 5.2 % (3.0-13.0); NEUTROPHILS # (AUTO) 27.3 K/uL (1.8-7.7); NEUTROPHILS % (AUTO) 87.9 % (40.0-77.0); PLATELET COUNT (AUTO) 490 K/uL (130-400); RED BLOOD CELL COUNT(AUTO) 3.57 MIL/uL (4.50-6.20)
[2023-08-01 05:30] LABS: WHITE BLOOD COUNT (AUTO) 31.1 K/uL (4.8-10.8)
[2023-08-01 05:48] LABS: ALBUMIN 1.5 g/dL (3.5-5.0); BILIRUBIN,TOTAL 0.3 mg/dL (0.2-1.0); CREATININE 1.2 mg/dL (0.5-1.5); POTASSIUM 3.7 mmol/L (3.5-5.1); TOTAL PROTEIN, SERUM 7.5 g/dL (6.0-8.3)
[2023-08-01 05:52] LABS: BAND NEUTROPHILS % (MANUAL) 3 % (0-2); LYMPHOCYTES % (MANUAL) 3 % (22-44); MAN.DIFF COMMENT-IMPRESSION MANUAL DIFFERENTIAL; MONOCYTES % (MANUAL) 4 % (2-9); SEGMENTED NEUTROPHILS % 90 % (40-70); TOTAL CELLS COUNTED 100
[2023-08-01 08:00] VITALS: O2SAT 100
[2023-08-01 08:16] VITALS: BP 151/78; PULSE 64; RESP 20
[2023-08-01] MEDS: LACTULOSE 20 GM/30 ML UDCUP PO SCH ×3 (11:00→20:06)
[2023-08-01 11:02] VITALS: BP 142/66; PULSE 64; RESP 16
[2023-08-01] MEDS ORDERED: INSULIN HUMULIN R 100 UNIT/ML 3ML SQ SCH (11:30)
[2023-08-01] MEDS: MORPHINE 2 MG SYG IVP PRN ×2 (14:12→22:06)
[2023-08-01 16:23] VITALS: BP 151/70; PULSE 71; RESP 17
[2023-08-01 20:00] VITALS: BP 121/82; PULSE 68; RESP 18; O2SAT 97
[2023-08-01] MEDS: INSULIN GLARGINE 100 UNITS/ML 10 ML VIAL SQ SCH (20:52)
[2023-08-02] VITALS (8 sets, daily range): BP systolic 131–165; BP diastolic 67–88; PULSE 68–80; RESP 16–21; TEMP 99.9; O2SAT 94–96
[2023-08-02] MEDS: KETOROLAC 15MG/ML VIAL (15MG/ML) IV PRN ×2 (00:35→12:18)
[2023-08-02] MEDS: 0.9%NACL 1000ML 1,000 ML IV SCH ×3 (01:11→21:04)
[2023-08-02] MEDS: VANCOMYCIN 1.25 GM/250 ML BAG 250 ML IV SCH ×2 (01:28→13:49)
[2023-08-02] MEDS: ZOSYN 3.375GM +NS 50ML IVPB SCH ×3 (02:01→17:26)
[2023-08-02 04:57] LABS: HEMATOCRIT 28.8 % (42-54); MEAN CORPUSCULAR HEMOGLOBIN 28.1 pg (27.0-33.0); MEAN CORPUSCULAR HGB CONC 32.6 g/dL (32.0-36.0); MEAN CORPUSCULAR VOLUME 86.2 fL (79-99); RED BLOOD CELL COUNT(AUTO) 3.34 MIL/uL (4.50-6.20); RED CELL DISTRIBUTION WIDTH 13.2 % (11.0-15.5); WHITE BLOOD COUNT (AUTO) 24.8 K/uL (4.8-10.8)
[2023-08-02 05:13] LABS: CREATININE 0.8 mg/dL (0.5-1.5); POTASSIUM 3.1 mmol/L (3.5-5.1)
[2023-08-02] MEDS: INSULIN HUMULIN R 100 UNIT/ML 3ML SQ SCH ×7 (05:54→20:13)
[2023-08-02] MEDS: INSULIN GLARGINE 100 UNITS/ML 10 ML VIAL SQ SCH ×2 (06:20→20:23)
[2023-08-02] MEDS: LACTULOSE 20 GM/30 ML UDCUP PO SCH ×3 (09:00→19:44)
[2023-08-02] MEDS: MORPHINE 2 MG SYG IVP PRN ×3 (09:17→23:27)
[2023-08-02] MEDS ORDERED: POTASSIUM CHLORIDE 10% ELIXIR 20 MEQ/15 ML UDCUP PO PRN (12:00)
[2023-08-02] MEDS: KCL 20 MEQ ERTAB PO PRN ×5 (12:23→20:16)
[2023-08-02] MEDS: ACETAMINOPHEN 325 MG TAB PO PRN (15:52)
[2023-08-03] VITALS (8 sets, daily range): BP systolic 140–167; BP diastolic 75–88; PULSE 66–79; RESP 18–24; O2SAT 96–97
[2023-08-03] MEDS: VANCOMYCIN 1.25 GM/250 ML BAG 250 ML IV SCH ×2 (01:26→13:58)
[2023-08-03] MEDS: KETOROLAC 15MG/ML VIAL (15MG/ML) IV PRN ×2 (01:26→13:57)
[2023-08-03] MEDS: ZOSYN 3.375GM +NS 50ML IVPB SCH ×3 (03:34→16:15)
[2023-08-03] MEDS: INSULIN HUMULIN R 100 UNIT/ML 3ML SQ SCH ×7 (07:30→20:34)
[2023-08-03] MEDS: INSULIN GLARGINE 100 UNITS/ML 10 ML VIAL SQ SCH (09:00)
[2023-08-03] MEDS: LACTULOSE 20 GM/30 ML UDCUP PO SCH ×4 (09:00→20:44)
[2023-08-03] MEDS: 0.9%NACL 1000ML 1,000 ML IV SCH ×2 (09:34→16:14)
[2023-08-03] MEDS ORDERED: REGADENOSON 0.4 MG/5 ML PF SYG IVP SCH (13:00)
[2023-08-03] MEDS: ACETAMINOPHEN 325 MG TAB PO PRN (13:58)
[2023-08-03 14:06] LABS: BASOPHILS # (AUTO) 0.12 K/uL (0.00-0.20); BASOPHILS % (AUTO) 0.6 % (0.0-5.0); EOSINOPHILS # (AUTO) 0.16 K/uL (0.00-0.70); EOSINOPHILS % (AUTO) 0.8 % (0.0-8.0); HEMATOCRIT 32.2 % (42-54); IMMATURE GRANULOCYTE ABSOLUTE 0.35 K/uL (0-1); LYMPHOCYTES # (AUTO) 3.1 K/uL (1.0-4.8); LYMPHOCYTES % (AUTO) 14.7 % (21.0-51.0); MEAN CORPUSCULAR HEMOGLOBIN 27.8 pg (27.0-33.0); MEAN CORPUSCULAR VOLUME 86.8 fL (79-99); MONOCYTES # (AUTO) 1.3 K/uL (0.1-1.0); MONOCYTES % (AUTO) 6.1 % (3.0-13.0); NEUTROPHILS # (AUTO) 15.9 K/uL (1.8-7.7); NEUTROPHILS % (AUTO) 76.1 % (40.0-77.0); PLATELET COUNT (AUTO) 602 K/uL (130-400); RED BLOOD CELL COUNT(AUTO) 3.71 MIL/uL (4.50-6.20); RED CELL DISTRIBUTION WIDTH 13.5 % (11.0-15.5); WHITE BLOOD COUNT (AUTO) 20.9 K/uL (4.8-10.8)
[2023-08-03 14:19] LABS: CREATININE 0.9 mg/dL (0.5-1.5); POTASSIUM 3.8 mmol/L (3.5-5.1)
[2023-08-03 14:24] LABS: ALBUMIN 1.6 g/dL (3.5-5.0); BILIRUBIN,TOTAL 0.3 mg/dL (0.2-1.0); TOTAL PROTEIN, SERUM 7.7 g/dL (6.0-8.3)
[2023-08-03] MEDS: MORPHINE 2 MG SYG IVP PRN (20:27)
[2023-08-04] VITALS (7 sets, daily range): BP systolic 141–159; BP diastolic 77–85; PULSE 64–78; RESP 17–20; O2SAT 98
[2023-08-04] MEDS: VANCOMYCIN 1.25 GM/250 ML BAG 250 ML IV SCH ×2 (01:05→16:16)
[2023-08-04] MEDS: KETOROLAC 15MG/ML VIAL (15MG/ML) IV PRN ×2 (01:26→18:32)
[2023-08-04] MEDS: ZOSYN 3.375GM +NS 50ML IVPB SCH ×3 (01:58→17:55)
[2023-08-04] MEDS: 0.9%NACL 1000ML 1,000 ML IV SCH ×3 (03:00→13:00)
[2023-08-04 04:31] LABS: BASOPHILS # (AUTO) 0.08 K/uL (0.00-0.20); BASOPHILS % (AUTO) 0.4 % (0.0-5.0); EOSINOPHILS # (AUTO) 0.23 K/uL (0.00-0.70); EOSINOPHILS % (AUTO) 1.3 % (0.0-8.0); HEMATOCRIT 27.5 % (42-54); IMMATURE GRANULOCYTE ABSOLUTE 0.43 K/uL (0-1); LYMPHOCYTES # (AUTO) 2.5 K/uL (1.0-4.8); LYMPHOCYTES % (AUTO) 13.4 % (21.0-51.0); MEAN CORPUSCULAR HEMOGLOBIN 28.1 pg (27.0-33.0); MEAN CORPUSCULAR VOLUME 87.9 fL (79-99); MONOCYTES # (AUTO) 1.3 K/uL (0.1-1.0); MONOCYTES % (AUTO) 6.9 % (3.0-13.0); NEUTROPHILS # (AUTO) 13.9 K/uL (1.8-7.7); NEUTROPHILS % (AUTO) 75.7 % (40.0-77.0); PLATELET COUNT (AUTO) 585 K/uL (130-400); RED BLOOD CELL COUNT(AUTO) 3.13 MIL/uL (4.50-6.20); RED CELL DISTRIBUTION WIDTH 13.6 % (11.0-15.5); WHITE BLOOD COUNT (AUTO) 18.4 K/uL (4.8-10.8)
[2023-08-04 05:04] LABS: ALBUMIN 1.4 g/dL (3.5-5.0); BILIRUBIN,TOTAL 0.2 mg/dL (0.2-1.0); CREATININE 0.8 mg/dL (0.5-1.5); POTASSIUM 3.7 mmol/L (3.5-5.1); TOTAL PROTEIN, SERUM 6.6 g/dL (6.0-8.3)
[2023-08-04] MEDS: INSULIN HUMULIN R 100 UNIT/ML 3ML SQ SCH ×7 (06:41→20:33)
[2023-08-04] MEDS: ASPIRIN 81 MG EC TAB PO SCH (08:40)
[2023-08-04] MEDS: MORPHINE 2 MG SYG IVP PRN ×2 (08:41→15:44)
[2023-08-04] MEDS: KCL 20 MEQ ERTAB PO PRN ×2 (08:41→11:23)
[2023-08-04] MEDS: INSULIN GLARGINE 100 UNITS/ML 10 ML VIAL SQ SCH (08:42)
[2023-08-04] MEDS: FLUCONAZOLE 100 MG TAB PO SCH (15:48)
[2023-08-04] MEDS ORDERED: IOHEXOL-350 75 ML VIAL IV ONE (16:06)
[2023-08-04] MEDS: ACETAMINOPHEN 325 MG TAB PO PRN (17:09)
[2023-08-04] MEDS: ATORVASTATIN 40 MG TABLET PO SCH (20:34)
[2023-08-05] VITALS (9 sets, daily range): BP systolic 153–169; BP diastolic 77–91; PULSE 67–72; RESP 18–20; O2SAT 98
[2023-08-05] MEDS: ZOSYN 3.375GM +NS 50ML IVPB SCH ×3 (02:28→17:32)
[2023-08-05] MEDS: 0.9%NACL 1000ML 1,000 ML IV SCH ×3 (02:28→18:54)
[2023-08-05] MEDS: VANCOMYCIN 1.25 GM/250 ML BAG 250 ML IV SCH ×2 (02:28→13:09)
[2023-08-05 04:33] LABS: BASOPHILS % (AUTO) 0.6 % (0.0-5.0); EOSINOPHILS # (AUTO) 0.31 K/uL (0.00-0.70); EOSINOPHILS % (AUTO) 1.7 % (0.0-8.0); HEMATOCRIT 29.7 % (42-54); IMMATURE GRANULOCYTE ABSOLUTE 0.44 K/uL (0-1); LYMPHOCYTES # (AUTO) 2.8 K/uL (1.0-4.8); LYMPHOCYTES % (AUTO) 15.7 % (21.0-51.0); MEAN CORPUSCULAR HEMOGLOBIN 28.3 pg (27.0-33.0); MEAN CORPUSCULAR VOLUME 88.4 fL (79-99); MONOCYTES # (AUTO) 1.4 K/uL (0.1-1.0); MONOCYTES % (AUTO) 7.8 % (3.0-13.0); NEUTROPHILS # (AUTO) 12.8 K/uL (1.8-7.7); NEUTROPHILS % (AUTO) 71.7 % (40.0-77.0); PLATELET COUNT (AUTO) 631 K/uL (130-400); RED BLOOD CELL COUNT(AUTO) 3.36 MIL/uL (4.50-6.20); RED CELL DISTRIBUTION WIDTH 13.7 % (11.0-15.5); WHITE BLOOD COUNT (AUTO) 17.8 K/uL (4.8-10.8)
[2023-08-05 04:47] LABS: ALBUMIN 1.5 g/dL (3.5-5.0); BILIRUBIN,TOTAL 0.2 mg/dL (0.2-1.0); CREATININE 0.8 mg/dL (0.5-1.5); TOTAL PROTEIN, SERUM 7.4 g/dL (6.0-8.3)
[2023-08-05] MEDS ORDERED: ALPRAZOLAM 0.25 MG TABLET PO ONE (06:00)
[2023-08-05] MEDS: INSULIN HUMULIN R 100 UNIT/ML 3ML SQ SCH ×7 (06:08→20:54)
[2023-08-05] MEDS ORDERED: INSULIN HUMULIN R 100 UNIT/ML 3ML SQ SCH (07:30)
[2023-08-05] MEDS: ASPIRIN 81 MG EC TAB PO SCH (08:30)
[2023-08-05] MEDS: MORPHINE 2 MG SYG IVP PRN (08:30)
[2023-08-05] MEDS: PANTOPRAZOLE 40 MG TAB DR PO SCH (08:30)
[2023-08-05] MEDS: INSULIN GLARGINE 100 UNITS/ML 10 ML VIAL SQ SCH (08:41)
[2023-08-05 09:14] LABS: MAGNESIUM 1.7 mg/dL (1.80-2.40)
[2023-08-05] MEDS: FLUCONAZOLE 100 MG TAB PO SCH (13:08)
[2023-08-05] MEDS: KETOROLAC 15MG/ML VIAL (15MG/ML) IV PRN (13:48)
[2023-08-05] MEDS: ATORVASTATIN 40 MG TABLET PO SCH (20:59)
[2023-08-05] MEDS ORDERED: ALPRAZOLAM 0.25 MG TABLET PO SCH (22:00)
[2023-08-06] VITALS (8 sets, daily range): BP systolic 152–183; BP diastolic 85–96; PULSE 67–74; RESP 18–19; O2SAT 95
[2023-08-06] MEDS: VANCOMYCIN 1.25 GM/250 ML BAG 250 ML IV SCH ×2 (02:22→13:07)
[2023-08-06] MEDS: KETOROLAC 15MG/ML VIAL (15MG/ML) IV PRN (02:22)
[2023-08-06] MEDS: ZOSYN 3.375GM +NS 50ML IVPB SCH ×2 (02:22→09:35)
[2023-08-06] MEDS: 0.9%NACL 1000ML 1,000 ML IV SCH ×2 (05:12→15:00)
[2023-08-06 05:24] LABS: BASOPHILS # (AUTO) 0.08 K/uL (0.00-0.20); BASOPHILS % (AUTO) 0.6 % (0.0-5.0); EOSINOPHILS # (AUTO) 0.25 K/uL (0.00-0.70); EOSINOPHILS % (AUTO) 1.8 % (0.0-8.0); HEMATOCRIT 29.5 % (42-54); IMMATURE GRANULOCYTE ABSOLUTE 0.34 K/uL (0-1); LYMPHOCYTES # (AUTO) 2.6 K/uL (1.0-4.8); LYMPHOCYTES % (AUTO) 18.7 % (21.0-51.0); MEAN CORPUSCULAR HEMOGLOBIN 28.1 pg (27.0-33.0); MEAN CORPUSCULAR HGB CONC 32.2 g/dL (32.0-36.0); MEAN CORPUSCULAR VOLUME 87.3 fL (79-99); MONOCYTES # (AUTO) 1.3 K/uL (0.1-1.0); MONOCYTES % (AUTO) 8.9 % (3.0-13.0); NEUTROPHILS # (AUTO) 9.5 K/uL (1.8-7.7); NEUTROPHILS % (AUTO) 67.6 % (40.0-77.0); PLATELET COUNT (AUTO) 625 K/uL (130-400); RED BLOOD CELL COUNT(AUTO) 3.38 MIL/uL (4.50-6.20); RED CELL DISTRIBUTION WIDTH 13.6 % (11.0-15.5); WHITE BLOOD COUNT (AUTO) 14.1 K/uL (4.8-10.8)
[2023-08-06 05:41] LABS: ALBUMIN 1.6 g/dL (3.5-5.0); BILIRUBIN,TOTAL 0.2 mg/dL (0.2-1.0); CREATININE 0.7 mg/dL (0.5-1.5); POTASSIUM 3.8 mmol/L (3.5-5.1); TOTAL PROTEIN, SERUM 7.4 g/dL (6.0-8.3)
[2023-08-06] MEDS: INSULIN HUMULIN R 100 UNIT/ML 3ML SQ SCH ×4 (06:27→11:45)
[2023-08-06] MEDS ORDERED: ENOXAPARIN SODIUM 40 MG/0.4 ML SYRINGE SQ SCH (09:00)
[2023-08-06] MEDS ORDERED: HYDRALAZINE 20MG/ML VIAL IV PRN (09:00)
[2023-08-06] MEDS: KCL 20 MEQ ERTAB PO PRN (09:03)
[2023-08-06] MEDS: PANTOPRAZOLE 40 MG TAB DR PO SCH (09:03)
[2023-08-06] MEDS: ASPIRIN 81 MG EC TAB PO SCH (09:03)
[2023-08-06] MEDS: INSULIN GLARGINE 100 UNITS/ML 10 ML VIAL SQ SCH (09:06)
[2023-08-06] MEDS: MORPHINE 2 MG SYG IVP PRN (09:07)
[2023-08-06] MEDS: FLUCONAZOLE 100 MG TAB PO SCH (13:06)
[2023-08-06] MEDS ORDERED: ATOR40TA71 PO (15:23)
[2023-08-06] MEDS ORDERED: AEC81 PO (15:23)
[2023-08-06] MEDS ORDERED: LOSA50TA64 PO (15:23)
[2023-08-06] MEDS ORDERED: INSU100I15 SQ (15:23)
[2023-08-06] MEDS ORDERED: INSU3INS3 SQ (15:23)
[2023-08-06] MEDS ORDERED: LOSARTAN 50 MG TABLET PO SCH (16:30)
== END 2023-08-06 16:28 | disposition home or self-care (01) | DRG 853 ==
LOC: EDH 09:58 → EDHIP 09:59 → 4DH 23:53
PROVIDERS: ADMIT Hospitalist; ATTEND Hospitalist
PROC: 0JBR0ZZ Excision of Left Foot Subcutaneous Tissue and Fascia, Open Approach (ICD-10-PCS; principal; 2023-07-31 07:30)
PROC: 4A02XM4 Measurement of Cardiac Total Activity, External Approach (ICD-10-PCS; 2023-08-03)
PROC: 3E033HZ Introduction of Radioactive Substance into Peripheral Vein, Percutaneous Approach (ICD-10-PCS; 2023-08-03)
DX: A41.9 Sepsis, unspecified organism (principal); A48.0 Gas gangrene; E43 Unspecified severe protein-calorie malnutrition; E87.1 Hypo-osmolality and hyponatremia; L03.116 Cellulitis of left lower limb; L02.612 Cutaneous abscess of left foot; E11.52 Type 2 diabetes mellitus with diabetic peripheral angiopathy with gangrene; E11.628 Type 2 diabetes mellitus with other skin complications; F14.10 Cocaine abuse, uncomplicated; E11.621 Type 2 diabetes mellitus with foot ulcer; E11.65 Type 2 diabetes mellitus with hyperglycemia; E11.40 Type 2 diabetes mellitus with diabetic neuropathy, unspecified; E66.9 Obesity, unspecified; E78.5 Hyperlipidemia, unspecified; F17.200 Nicotine dependence, unspecified, uncomplicated; H54.62 Unqualified visual loss, left eye, normal vision right eye; I10 Essential (primary) hypertension; L97.529 Non-pressure chronic ulcer of other part of left foot with unspecified severity; Z68.32 Body mass index [BMI] 32.0-32.9, adult; Z79.4 Long term (current) use of insulin; Z82.49 Family history of ischemic heart disease and other diseases of the circulatory system; Z91.198 Patient's noncompliance with other medical treatment and regimen for other reason
CPT/HCPCS: 36415; 36600; 71045; 73630; 75635; 78452; 80048; 80053; 80202; 82010; 82306; 82803; 82947; 82948; 83036; 83605; 83735; 84132; 84145; 85025; 85027; 85610; 85651; 85730; 86140; 86850; 86900; 86901; 87040; 87070; 87076; 87205; 93005; 93017; 93925; 93970; 96365; 96374; 96375; A9500; G0378; J1100; J1650; J1815; J1885; J2250; J2270; J2405; J2543; J2704; J2785; J3010; J3370; J7030; Q9967; 3370; A4222; A4223; A4649; A6446; J0665; J3490

== ENCOUNTER 2023-08-13 11:01 | Inpatient (IN) | payer OTHER ==
[~2023-08-13] VITALS: Ht 160 cm; Wt 78.4 kg
[~2023-08-13 11:01] MED LIST: AEC81 PO; ATOR40TA71 PO; INSU100I15 SQ; INSU3INS3 SQ; LOSA50TA64 PO
[2023-08-13 11:58] LABS: BASOPHILS # (AUTO) 0.12 K/uL (0.00-0.20); BASOPHILS % (AUTO) 0.9 % (0.0-5.0); EOSINOPHILS # (AUTO) 0.14 K/uL (0.00-0.70); EOSINOPHILS % (AUTO) 1.1 % (0.0-8.0); IMMATURE GRANULOCYTE ABSOLUTE 0.05 K/uL (0-1); LYMPHOCYTES # (AUTO) 2.1 K/uL (1.0-4.8); LYMPHOCYTES % (AUTO) 16.7 % (21.0-51.0); MEAN CORPUSCULAR HEMOGLOBIN 27.3 pg (27.0-33.0); MEAN CORPUSCULAR HGB CONC 31.7 g/dL (32.0-36.0); MEAN CORPUSCULAR VOLUME 86.1 fL (79-99); MONOCYTES # (AUTO) 0.7 K/uL (0.1-1.0); MONOCYTES % (AUTO) 5.6 % (3.0-13.0); NEUTROPHILS # (AUTO) 9.6 K/uL (1.8-7.7); NEUTROPHILS % (AUTO) 75.3 % (40.0-77.0); PLATELET COUNT (AUTO) 547 K/uL (130-400); RED BLOOD CELL COUNT(AUTO) 3.37 MIL/uL (4.50-6.20); RED CELL DISTRIBUTION WIDTH 13.6 % (11.0-15.5); WHITE BLOOD COUNT (AUTO) 12.7 K/uL (4.8-10.8)
[2023-08-13 12:13] LABS: CREATININE 0.9 mg/dL (0.5-1.5); POTASSIUM 3.3 mmol/L (3.5-5.1)
[2023-08-13] MEDS ORDERED: VANCOMYCIN KIT 1 GM/250 ML IV.KIT IV ONE (13:00)
[2023-08-13] MEDS ORDERED: MORPHINE 2 MG SYG IVP ONE (13:00)
[2023-08-13] MEDS ORDERED: INSULIN HUMULIN R 100 UNIT/ML 3ML IV ONE (14:30)
[2023-08-13] MEDS ORDERED: ZOSYN 3.375GM +NS 50ML IV ONE (14:30)
[2023-08-13] MEDS ORDERED: 0.9%NACL 1000ML 1,000 ML IV ONE (14:30)
[2023-08-13] MEDS: 0.9%NACL 1000ML 1,000 ML IV SCH (18:23)
[2023-08-13] MEDS ORDERED: ACETAMINOPHEN 325 MG TAB PO PRN (18:30)
[2023-08-13] MEDS ORDERED: ONDANSETRON 4MG INJ IV PRN (18:30)
[2023-08-13] MEDS ORDERED: VANCOMYCIN PROTOCOL PER PHARMACY IV PRN (18:30)
[2023-08-13] MEDS: HEPARIN 5,000 UNIT VIAL SQ SCH (21:02)
[2023-08-13] MEDS: FAMOTIDINE 20MG VIAL IV SCH (21:02)
[2023-08-13] MEDS: ZOSYN 3.375GM+NS 50ML 50 ML IV SCH (21:44)
[2023-08-13 22:00] VITALS: BP 160/92; PULSE 80; RESP 19
[2023-08-13 22:50] VITALS: O2SAT 98
[2023-08-13] MEDS: MORPHINE 2 MG SYG IV PRN (23:48)
[2023-08-14] VITALS (7 sets, daily range): BP systolic 149–166; BP diastolic 85–98; PULSE 74–79; RESP 18–20; O2SAT 95–98
[2023-08-14] MEDS: VANCOMYCIN 1.25 GM/250 ML BAG 250 ML IV SCH ×2 (01:09→13:33)
[2023-08-14] MEDS: ZOSYN 3.375GM+NS 50ML 50 ML IV SCH ×3 (05:19→20:15)
[2023-08-14 06:05] LABS: BASOPHILS # (AUTO) 0.12 K/uL (0.00-0.20); BASOPHILS % (AUTO) 1.1 % (0.0-5.0); EOSINOPHILS % (AUTO) 1.8 % (0.0-8.0); HEMATOCRIT 27.6 % (42-54); IMMATURE GRANULOCYTE ABSOLUTE 0.04 K/uL (0-1); LYMPHOCYTES # (AUTO) 1.9 K/uL (1.0-4.8); LYMPHOCYTES % (AUTO) 17.1 % (21.0-51.0); MEAN CORPUSCULAR HEMOGLOBIN 27.6 pg (27.0-33.0); MEAN CORPUSCULAR HGB CONC 31.9 g/dL (32.0-36.0); MEAN CORPUSCULAR VOLUME 86.5 fL (79-99); MONOCYTES # (AUTO) 0.6 K/uL (0.1-1.0); MONOCYTES % (AUTO) 5.5 % (3.0-13.0); NEUTROPHILS # (AUTO) 8.1 K/uL (1.8-7.7); NEUTROPHILS % (AUTO) 74.1 % (40.0-77.0); PLATELET COUNT (AUTO) 469 K/uL (130-400); RED BLOOD CELL COUNT(AUTO) 3.19 MIL/uL (4.50-6.20); RED CELL DISTRIBUTION WIDTH 13.6 % (11.0-15.5); WHITE BLOOD COUNT (AUTO) 10.9 K/uL (4.8-10.8)
[2023-08-14 06:42] LABS: INR 1.02 (0.85-1.15); PROTHROMBIN TIME 11.8 SEC (9.6-11.6)
[2023-08-14 06:43] LABS: PARTIAL THROMBOPLASTIN TIME 30.5 SEC (26.3-35.5)
[2023-08-14 06:44] LABS: ALBUMIN 1.9 g/dL (3.5-5.0); BILIRUBIN,TOTAL 0.3 mg/dL (0.2-1.0); CREATININE 0.7 mg/dL (0.5-1.5); POTASSIUM 3.2 mmol/L (3.5-5.1); TOTAL PROTEIN, SERUM 7.9 g/dL (6.0-8.3)
[2023-08-14 07:32] LABS: ERYTHROCYTE SEDIMENTATION RATE 140 MM/HR (0-20)
[2023-08-14] MEDS: FAMOTIDINE 20MG VIAL IV SCH ×2 (09:41→20:16)
[2023-08-14] MEDS: HEPARIN 5,000 UNIT VIAL SQ SCH ×2 (09:42→20:16)
[2023-08-14] MEDS ORDERED: POTASSIUM CHLORIDE 20MEQ/100ML 100 ML IV PRN (13:00)
[2023-08-14] MEDS ORDERED: GLUCAGON 1MG KIT 1 MG ML IM PRN (13:00)
[2023-08-14] MEDS ORDERED: DEXTROSE 50%-WATER 50 ML DISP.SYRIN IV PRN (13:00)
[2023-08-14] MEDS ORDERED: HYDRALAZINE 20MG/ML VIAL IV PRN (13:30)
[2023-08-14] MEDS: MORPHINE 2 MG SYG IV PRN ×2 (13:34→20:15)
[2023-08-14] MEDS: 0.9%NACL 1000ML 1,000 ML IV SCH (14:47)
[2023-08-14] MEDS: POTASSIUM CHLORIDE 10% ELIXIR 20 MEQ/15 ML UDCUP PO PRN (16:54)
[2023-08-14] MEDS: MAGNESIUM 2GM PREMIX 50ML 50 ML IV PRN (16:54)
[2023-08-14] MEDS: INSULIN HUMULIN R 100 UNIT/ML 3ML SQ SCH ×2 (16:58→20:18)
[2023-08-14] MEDS: KCL 20 MEQ ERTAB PO PRN ×2 (20:18→22:31)
[2023-08-15] VITALS (25 sets, daily range): BP systolic 121–186; BP diastolic 62–96; PULSE 68–118; RESP 16–20; O2SAT 95–98
[2023-08-15] MEDS: VANCOMYCIN 1.25 GM/250 ML BAG 250 ML IV SCH ×2 (01:07→14:15)
[2023-08-15] MEDS: ZOSYN 3.375GM+NS 50ML 50 ML IV SCH ×3 (05:20→21:06)
[2023-08-15 06:10] LABS: BASOPHILS # (AUTO) 0.13 K/uL (0.00-0.20); BASOPHILS % (AUTO) 1.2 % (0.0-5.0); EOSINOPHILS # (AUTO) 0.14 K/uL (0.00-0.70); EOSINOPHILS % (AUTO) 1.3 % (0.0-8.0); HEMATOCRIT 27.2 % (42-54); IMMATURE GRANULOCYTE ABSOLUTE 0.05 K/uL (0-1); LYMPHOCYTES # (AUTO) 2.2 K/uL (1.0-4.8); LYMPHOCYTES % (AUTO) 19.9 % (21.0-51.0); MEAN CORPUSCULAR HEMOGLOBIN 28.5 pg (27.0-33.0); MEAN CORPUSCULAR HGB CONC 32.4 g/dL (32.0-36.0); MONOCYTES # (AUTO) 0.7 K/uL (0.1-1.0); NEUTROPHILS # (AUTO) 7.8 K/uL (1.8-7.7); NEUTROPHILS % (AUTO) 71.1 % (40.0-77.0); PLATELET COUNT (AUTO) 424 K/uL (130-400); RED BLOOD CELL COUNT(AUTO) 3.09 MIL/uL (4.50-6.20); RED CELL DISTRIBUTION WIDTH 13.7 % (11.0-15.5)
[2023-08-15 06:29] LABS: ALBUMIN 1.9 g/dL (3.5-5.0); BILIRUBIN,TOTAL 0.3 mg/dL (0.2-1.0); CREATININE 0.8 mg/dL (0.5-1.5); MAGNESIUM 1.8 mg/dL (1.80-2.40); POTASSIUM 3.6 mmol/L (3.5-5.1); TOTAL PROTEIN, SERUM 8.1 g/dL (6.0-8.3)
[2023-08-15] MEDS: INSULIN HUMULIN R 100 UNIT/ML 3ML SQ SCH ×7 (06:53→21:17)
[2023-08-15] MEDS ORDERED: LIDOCAINE HCL 1% MDV 50ML VIAL ONE (07:05)
[2023-08-15] MEDS ORDERED: BUPIVACAINE/PF 0.5% 30ML VIAL ONE (07:05)
[2023-08-15] MEDS ORDERED: MIDAZOLAM HCL 1 MG/ML 2ML VIAL ONE (07:38)
[2023-08-15] MEDS ORDERED: LIDOCAINE PF 100MG/5ML (2%) SYRINGE 5ML ONE (07:38)
[2023-08-15] MEDS ORDERED: FENTANYL CITRATE PF 50 MCG/1 ML 2ML VIAL ONE (07:38)
[2023-08-15] MEDS ORDERED: PROPOFOL 10 MG/ML 20ML VIAL IV ONE ×2 (07:38→07:51)
[2023-08-15] MEDS ORDERED: ONDANSETRON 4MG INJ ONE (08:08)
[2023-08-15] MEDS: 0.9%NACL 1000ML 1,000 ML IV SCH (08:59)
[2023-08-15] MEDS: HEPARIN 5,000 UNIT VIAL SQ SCH ×2 (09:00→21:15)
[2023-08-15] MEDS: FAMOTIDINE 20MG VIAL IV SCH ×2 (09:45→21:06)
[2023-08-15] MEDS: MAGNESIUM 2GM PREMIX 50ML 50 ML IV PRN (09:51)
[2023-08-15] MEDS: MORPHINE 2 MG SYG IV PRN ×3 (10:45→21:06)
[2023-08-15] MEDS: ACETAMINOPHEN 325 MG TAB PO PRN (12:28)
[2023-08-15] MEDS: HYDROMORPHONE 1 MG INJ IVP PRN ×2 (14:15→19:34)
[2023-08-15] MEDS: INSULIN GLARGINE 100 UNITS/ML 10 ML VIAL SQ SCH (21:18)
[2023-08-16] VITALS: BP 147/83; PULSE 81; RESP 20
[2023-08-16] MEDS: HYDROMORPHONE 1 MG INJ IVP PRN ×3 (00:32→16:28)
[2023-08-16] MEDS: VANCOMYCIN 1.25 GM/250 ML BAG 250 ML IV SCH ×2 (00:38→16:31)
[2023-08-16 04:00] VITALS: BP 150/84; PULSE 80; RESP 18
[2023-08-16] MEDS: ZOSYN 3.375GM+NS 50ML 50 ML IV SCH ×3 (05:06→23:04)
[2023-08-16] MEDS: INSULIN HUMULIN R 100 UNIT/ML 3ML SQ SCH ×7 (06:07→21:00)
[2023-08-16] MEDS: 0.9%NACL 1000ML 1,000 ML IV SCH ×2 (06:08→23:04)
[2023-08-16 08:00] VITALS: BP 149/75; PULSE 82; RESP 20; O2SAT 97
[2023-08-16 08:09] LABS: BASOPHILS # (AUTO) 0.09 K/uL (0.00-0.20); BASOPHILS % (AUTO) 0.8 % (0.0-5.0); EOSINOPHILS # (AUTO) 0.15 K/uL (0.00-0.70); EOSINOPHILS % (AUTO) 1.3 % (0.0-8.0); HEMATOCRIT 23.6 % (42-54); IMMATURE GRANULOCYTE ABSOLUTE 0.08 K/uL (0-1); LYMPHOCYTES % (AUTO) 17.1 % (21.0-51.0); MEAN CORPUSCULAR HEMOGLOBIN 27.3 pg (27.0-33.0); MEAN CORPUSCULAR HGB CONC 31.8 g/dL (32.0-36.0); MEAN CORPUSCULAR VOLUME 85.8 fL (79-99); MONOCYTES # (AUTO) 0.8 K/uL (0.1-1.0); MONOCYTES % (AUTO) 6.8 % (3.0-13.0); NEUTROPHILS # (AUTO) 8.5 K/uL (1.8-7.7); NEUTROPHILS % (AUTO) 73.3 % (40.0-77.0); PLATELET COUNT (AUTO) 387 K/uL (130-400); RED BLOOD CELL COUNT(AUTO) 2.75 MIL/uL (4.50-6.20); RED CELL DISTRIBUTION WIDTH 13.6 % (11.0-15.5); WHITE BLOOD COUNT (AUTO) 11.6 K/uL (4.8-10.8)
[2023-08-16 08:23] LABS: ALBUMIN 1.9 g/dL (3.5-5.0); POTASSIUM 3.4 mmol/L (3.5-5.1); TOTAL PROTEIN, SERUM 7.7 g/dL (6.0-8.3)
[2023-08-16 08:48] LABS: BILIRUBIN,TOTAL 0.2 mg/dL (0.2-1.0)
[2023-08-16] MEDS: ASPIRIN 81 MG EC TAB PO SCH (09:49)
[2023-08-16] MEDS: LOSARTAN 50 MG TABLET PO SCH (09:50)
[2023-08-16] MEDS: FAMOTIDINE 20MG VIAL IV SCH ×2 (09:50→21:00)
[2023-08-16] MEDS: HEPARIN 5,000 UNIT VIAL SQ SCH ×2 (10:00→22:57)
[2023-08-16 12:00] VITALS: BP 151/83; PULSE 84; RESP 18
[2023-08-16 16:00] VITALS: BP 134/67; PULSE 86; RESP 18
[2023-08-16 20:00] VITALS: BP 140/80; PULSE 87; RESP 20
[2023-08-16] MEDS: ATORVASTATIN 40 MG TABLET PO SCH (21:00)
[2023-08-16] MEDS: INSULIN GLARGINE 100 UNITS/ML 10 ML VIAL SQ SCH (22:59)
[2023-08-17] VITALS (7 sets, daily range): BP systolic 145–163; BP diastolic 73–89; PULSE 72–85; RESP 18–20; O2SAT 97–98
[2023-08-17] MEDS: VANCOMYCIN 1.25 GM/250 ML BAG 250 ML IV SCH ×2 (04:29→13:19)
[2023-08-17] MEDS: MORPHINE 2 MG SYG IV PRN ×4 (04:39→21:25)
[2023-08-17 05:14] LABS: BASOPHILS % (AUTO) 0.9 % (0.0-5.0); EOSINOPHILS # (AUTO) 0.21 K/uL (0.00-0.70); EOSINOPHILS % (AUTO) 1.8 % (0.0-8.0); HEMATOCRIT 24.6 % (42-54); IMMATURE GRANULOCYTE ABSOLUTE 0.06 K/uL (0-1); LYMPHOCYTES # (AUTO) 2.6 K/uL (1.0-4.8); LYMPHOCYTES % (AUTO) 22.2 % (21.0-51.0); MEAN CORPUSCULAR HEMOGLOBIN 27.8 pg (27.0-33.0); MEAN CORPUSCULAR HGB CONC 31.7 g/dL (32.0-36.0); MEAN CORPUSCULAR VOLUME 87.5 fL (79-99); MONOCYTES % (AUTO) 8.5 % (3.0-13.0); NEUTROPHILS # (AUTO) 7.6 K/uL (1.8-7.7); NEUTROPHILS % (AUTO) 66.1 % (40.0-77.0); PLATELET COUNT (AUTO) 343 K/uL (130-400); RED BLOOD CELL COUNT(AUTO) 2.81 MIL/uL (4.50-6.20); RED CELL DISTRIBUTION WIDTH 13.9 % (11.0-15.5); WHITE BLOOD COUNT (AUTO) 11.5 K/uL (4.8-10.8)
[2023-08-17] MEDS: ZOSYN 3.375GM+NS 50ML 50 ML IV SCH ×3 (05:30→21:20)
[2023-08-17 05:34] LABS: ALBUMIN 1.8 g/dL (3.5-5.0); BILIRUBIN,TOTAL 0.2 mg/dL (0.2-1.0); CREATININE 0.7 mg/dL (0.5-1.5); TOTAL PROTEIN, SERUM 7.5 g/dL (6.0-8.3)
[2023-08-17 05:49] LABS: POTASSIUM 2.9 mmol/L (3.5-5.1)
[2023-08-17] MEDS: INSULIN HUMULIN R 100 UNIT/ML 3ML SQ SCH ×7 (07:30→21:18)
[2023-08-17] MEDS: KCL 20 MEQ ERTAB PO PRN (07:42)
[2023-08-17] MEDS: ASPIRIN 81 MG EC TAB PO SCH (10:16)
[2023-08-17] MEDS: LOSARTAN 50 MG TABLET PO SCH (10:16)
[2023-08-17] MEDS: FAMOTIDINE 20MG VIAL IV SCH ×2 (10:16→21:20)
[2023-08-17] MEDS: HEPARIN 5,000 UNIT VIAL SQ SCH ×2 (10:26→21:19)
[2023-08-17] MEDS ORDERED: KCL 20 MEQ ERTAB PO ONE (13:00)
[2023-08-17] MEDS ORDERED: POTASSIUM CHLORIDE 20MEQ/100ML 100 ML IV ONE (13:00)
[2023-08-17] MEDS: POTASSIUM CHLORIDE 10% ELIXIR 20 MEQ/15 ML UDCUP PO PRN ×2 (17:44→21:53)
[2023-08-17] MEDS: INSULIN GLARGINE 100 UNITS/ML 10 ML VIAL SQ SCH (21:17)
[2023-08-17] MEDS: ATORVASTATIN 40 MG TABLET PO SCH (21:20)
[2023-08-17] MEDS: 0.9%NACL 1000ML 1,000 ML IV SCH (21:55)
[2023-08-18] MEDS: VANCOMYCIN 1.25 GM/250 ML BAG 250 ML IV SCH ×2 (01:03→12:30)
[2023-08-18] MEDS: KCL 20 MEQ ERTAB PO PRN (01:04)
[2023-08-18 03:53] VITALS: BP 162/80; PULSE 77; RESP 20
[2023-08-18] MEDS: ZOSYN 3.375GM+NS 50ML 50 ML IV SCH ×2 (05:19→12:29)
[2023-08-18] MEDS: ACETAMINOPHEN 325 MG TAB PO PRN (05:20)
[2023-08-18] MEDS: INSULIN HUMULIN R 100 UNIT/ML 3ML SQ SCH ×4 (06:30→12:32)
[2023-08-18] MEDS: MORPHINE 2 MG SYG IV PRN (06:55)
[2023-08-18 08:00] VITALS: BP 154/90; PULSE 71; RESP 18; O2SAT 100
[2023-08-18] MEDS: LOSARTAN 50 MG TABLET PO SCH (08:49)
[2023-08-18] MEDS: FAMOTIDINE 20MG VIAL IV SCH (08:49)
[2023-08-18] MEDS: ASPIRIN 81 MG EC TAB PO SCH (08:49)
[2023-08-18] MEDS: HEPARIN 5,000 UNIT VIAL SQ SCH (08:50)
[2023-08-18 12:00] VITALS: BP 152/90; PULSE 71; RESP 20
== END 2023-08-18 16:05 | disposition home or self-care (01) | DRG 240 ==
LOC: EDH 11:01 → EDHIP 11:02 → 3BH 23:03
PROVIDERS: ADMIT Hospitalist; ATTEND Hospitalist
PROC: 0Y6M0ZC Detachment at Right Foot, Partial 3rd Ray, Open Approach (ICD-10-PCS; 2023-08-15)
PROC: 0Y6M0ZD Detachment at Right Foot, Partial 4th Ray, Open Approach (ICD-10-PCS; 2023-08-15)
PROC: 0Y6M0ZB Detachment at Right Foot, Partial 2nd Ray, Open Approach (ICD-10-PCS; principal; 2023-08-15 07:40)
DX: E11.52 Type 2 diabetes mellitus with diabetic peripheral angiopathy with gangrene (principal); L02.612 Cutaneous abscess of left foot; L03.116 Cellulitis of left lower limb; M86.8X7 Other osteomyelitis, ankle and foot; E11.621 Type 2 diabetes mellitus with foot ulcer; E11.628 Type 2 diabetes mellitus with other skin complications; E11.65 Type 2 diabetes mellitus with hyperglycemia; E11.69 Type 2 diabetes mellitus with other specified complication; F14.10 Cocaine abuse, uncomplicated; E87.6 Hypokalemia; E78.00 Pure hypercholesterolemia, unspecified; I10 Essential (primary) hypertension; Z79.899 Other long term (current) drug therapy; Z82.49 Family history of ischemic heart disease and other diseases of the circulatory system; Z87.891 Personal history of nicotine dependence; Z91.198 Patient's noncompliance with other medical treatment and regimen for other reason; Z79.84 Long term (current) use of oral hypoglycemic drugs
CPT/HCPCS: 36415; 73630; 80048; 80053; 80202; 82948; 83036; 83605; 83690; 83735; 84145; 85025; 85610; 85651; 85730; 87040; 87070; 87076; 87077; 87186; 87205; G0378; J0360; J1170; J1644; J1815; J2001; J2250; J2270; J2405; J2543; J2704; J3010; J3370; J3475; J3490; J7030; 3370; A4222; A4223; A4649; A4663; A4930; A6446; J0665

== ENCOUNTER → 2023-08-20 | Outpatient (CLI) | payer OTHER ==
[~2023-08-20] MED LIST changes: +LIDOCAINE HCL 4% LTA SOL 4 ML VIAL TP ONE
== END | disposition home or self-care (01) ==
LOC: WHH 10:10
PROVIDERS: ATTEND Podiatrist Foot & Ankle Surgery
DX: T87.89 Other complications of amputation stump (principal); E11.621 Type 2 diabetes mellitus with foot ulcer; L97.521 Non-pressure chronic ulcer of other part of left foot limited to breakdown of skin; E11.40 Type 2 diabetes mellitus with diabetic neuropathy, unspecified; E11.69 Type 2 diabetes mellitus with other specified complication; M86.172 Other acute osteomyelitis, left ankle and foot; I10 Essential (primary) hypertension; E78.00 Pure hypercholesterolemia, unspecified; E11.649 Type 2 diabetes mellitus with hypoglycemia without coma; E11.52 Type 2 diabetes mellitus with diabetic peripheral angiopathy with gangrene; I96 Gangrene, not elsewhere classified; E66.9 Obesity, unspecified; Z68.32 Body mass index [BMI] 32.0-32.9, adult; Z87.891 Personal history of nicotine dependence; Z79.4 Long term (current) use of insulin; Z79.899 Other long term (current) drug therapy; Y83.5 Amputation of limb(s) as the cause of abnormal reaction of the patient, or of later complication, without mention of misadventure at the time of the procedure
CPT/HCPCS: 99215; A4450

== ENCOUNTER → 2023-08-27 | Outpatient (CLI) | payer OTHER | END | disposition home or self-care (01) | LOC: WHH 09:05 | PROVIDERS: ATTEND Podiatrist Foot & Ankle Surgery | DX: T87.89 Other complications of amputation stump (principal); E11.621 Type 2 diabetes mellitus with foot ulcer; L97.522 Non-pressure chronic ulcer of other part of left foot with fat layer exposed; E11.40 Type 2 diabetes mellitus with diabetic neuropathy, unspecified; E11.69 Type 2 diabetes mellitus with other specified complication; M86.172 Other acute osteomyelitis, left ankle and foot; E11.649 Type 2 diabetes mellitus with hypoglycemia without coma; E11.52 Type 2 diabetes mellitus with diabetic peripheral angiopathy with gangrene; I96 Gangrene, not elsewhere classified; I10 Essential (primary) hypertension; E78.5 Hyperlipidemia, unspecified; E78.00 Pure hypercholesterolemia, unspecified; E66.9 Obesity, unspecified; Z68.32 Body mass index [BMI] 32.0-32.9, adult; Z87.891 Personal history of nicotine dependence; Z79.4 Long term (current) use of insulin; Z79.899 Other long term (current) drug therapy; Y83.5 Amputation of limb(s) as the cause of abnormal reaction of the patient, or of later complication, without mention of misadventure at the time of the procedure | CPT/HCPCS: 99214 ==

== ENCOUNTER → 2023-09-10 | Outpatient (CLI) | payer OTHER | END | disposition home or self-care (01) | LOC: WHH 08:24 | PROVIDERS: ATTEND Podiatrist Foot & Ankle Surgery | DX: T87.89 Other complications of amputation stump (principal); E11.621 Type 2 diabetes mellitus with foot ulcer; L97.522 Non-pressure chronic ulcer of other part of left foot with fat layer exposed; E11.40 Type 2 diabetes mellitus with diabetic neuropathy, unspecified; E11.69 Type 2 diabetes mellitus with other specified complication; M86.172 Other acute osteomyelitis, left ankle and foot; E11.649 Type 2 diabetes mellitus with hypoglycemia without coma; E11.52 Type 2 diabetes mellitus with diabetic peripheral angiopathy with gangrene; I96 Gangrene, not elsewhere classified; I10 Essential (primary) hypertension; E78.00 Pure hypercholesterolemia, unspecified; E66.9 Obesity, unspecified; Z68.32 Body mass index [BMI] 32.0-32.9, adult; Z87.891 Personal history of nicotine dependence; Z79.4 Long term (current) use of insulin; Z79.899 Other long term (current) drug therapy; Y83.5 Amputation of limb(s) as the cause of abnormal reaction of the patient, or of later complication, without mention of misadventure at the time of the procedure | CPT/HCPCS: 99214 ==

== ENCOUNTER → 2023-10-01 | Outpatient (CLI) | payer OTHER ==
[~2023-10-01] MED LIST changes: -LIDOCAINE HCL 4% LTA SOL 4 ML VIAL TP ONE
== END | disposition home or self-care (01) ==
LOC: WHH 08:09
PROVIDERS: ATTEND Podiatrist Foot & Ankle Surgery
DX: T87.89 Other complications of amputation stump (principal); E11.621 Type 2 diabetes mellitus with foot ulcer; L97.522 Non-pressure chronic ulcer of other part of left foot with fat layer exposed; E11.40 Type 2 diabetes mellitus with diabetic neuropathy, unspecified; E11.69 Type 2 diabetes mellitus with other specified complication; M86.172 Other acute osteomyelitis, left ankle and foot; E11.649 Type 2 diabetes mellitus with hypoglycemia without coma; E11.52 Type 2 diabetes mellitus with diabetic peripheral angiopathy with gangrene; I96 Gangrene, not elsewhere classified; I10 Essential (primary) hypertension; E78.00 Pure hypercholesterolemia, unspecified; E66.9 Obesity, unspecified; Z68.32 Body mass index [BMI] 32.0-32.9, adult; Z87.891 Personal history of nicotine dependence; Z79.4 Long term (current) use of insulin; Z79.899 Other long term (current) drug therapy; Y83.5 Amputation of limb(s) as the cause of abnormal reaction of the patient, or of later complication, without mention of misadventure at the time of the procedure
CPT/HCPCS: 99214; A4450

== ENCOUNTER → 2023-11-19 | Outpatient (CLI) | payer OTHER | END | disposition home or self-care (01) | LOC: WHH 08:00 | PROVIDERS: ATTEND Podiatrist Foot & Ankle Surgery | DX: T87.89 Other complications of amputation stump (principal); E11.621 Type 2 diabetes mellitus with foot ulcer; L97.522 Non-pressure chronic ulcer of other part of left foot with fat layer exposed; E11.40 Type 2 diabetes mellitus with diabetic neuropathy, unspecified; E11.69 Type 2 diabetes mellitus with other specified complication; M86.172 Other acute osteomyelitis, left ankle and foot; E11.649 Type 2 diabetes mellitus with hypoglycemia without coma; E11.52 Type 2 diabetes mellitus with diabetic peripheral angiopathy with gangrene; I96 Gangrene, not elsewhere classified; I10 Essential (primary) hypertension; E78.00 Pure hypercholesterolemia, unspecified; E66.9 Obesity, unspecified; Z68.32 Body mass index [BMI] 32.0-32.9, adult; Z87.891 Personal history of nicotine dependence; Z79.4 Long term (current) use of insulin; Z79.899 Other long term (current) drug therapy; Y83.5 Amputation of limb(s) as the cause of abnormal reaction of the patient, or of later complication, without mention of misadventure at the time of the procedure | CPT/HCPCS: 99214 ==

== ENCOUNTER 2023-12-22 16:58 | Emergency (ER) | payer OTHER ==
[~2023-12-22] VITALS: Ht 160 cm; Wt 70.8 kg
[2023-12-22 17:24] LABS: BASOPHILS # (AUTO) 0.12 K/uL (0.00-0.20); BASOPHILS % (AUTO) 1.2 % (0.0-5.0); EOSINOPHILS # (AUTO) 0.18 K/uL (0.00-0.70); EOSINOPHILS % (AUTO) 1.8 % (0.0-8.0); HEMATOCRIT 39.4 % (42-54); IMMATURE GRANULOCYTE ABSOLUTE 0.03 K/uL (0-1); LYMPHOCYTES # (AUTO) 3.6 K/uL (1.0-4.8); MEAN CORPUSCULAR HEMOGLOBIN 27.4 pg (27.0-33.0); MEAN CORPUSCULAR HGB CONC 33.5 g/dL (32.0-36.0); MEAN CORPUSCULAR VOLUME 81.7 fL (79-99); MONOCYTES # (AUTO) 0.6 K/uL (0.1-1.0); MONOCYTES % (AUTO) 5.8 % (3.0-13.0); NEUTROPHILS # (AUTO) 5.5 K/uL (1.8-7.7); NEUTROPHILS % (AUTO) 54.9 % (40.0-77.0); PLATELET COUNT (AUTO) 298 K/uL (130-400); RED BLOOD CELL COUNT(AUTO) 4.82 MIL/uL (4.50-6.20); RED CELL DISTRIBUTION WIDTH 13.8 % (11.0-15.5)
[2023-12-22 17:34] LABS: INR <= 0.93 (0.85-1.15); PROTHROMBIN TIME 10.3 SEC (9.6-11.6)
[2023-12-22 17:47] LABS: B-TYPE NATRIURETIC PEPTIDE 10 pg/mL (0-100)
[2023-12-22 17:49] LABS: CREATININE 1.3 mg/dL (0.5-1.3); POTASSIUM 3.7 mmol/L (3.5-5.1)
[2023-12-22] MEDS: 0.9%NACL 1000ML 1,000 ML IV SCH ×2 (19:43→19:45)
[2023-12-22] MEDS: INSULIN HUMULIN R 100 UNIT/ML 3ML IV ONE (19:45)
[2023-12-22 20:36] VITALS: BP 123/65; PULSE 60; RESP 18; O2SAT 100
[2023-12-22 21:11] LABS: POTASSIUM 3.3 mmol/L (3.5-5.1)
== END 2023-12-22 21:29 | disposition home or self-care (01) ==
LOC: EDH 16:58
DX: E11.65 Type 2 diabetes mellitus with hyperglycemia (principal); E78.00 Pure hypercholesterolemia, unspecified; I10 Essential (primary) hypertension
CPT/HCPCS: 99285; 96374; 71045; 96361; 82550; 84484; 80048 ×2; 83880; 85025; 85610; 82010; 36415; 93005; J1815; J7030 ×2

== ENCOUNTER → 2023-12-22 | Outpatient (CLI) | payer OTHER | END | disposition home or self-care (01) | LOC: RAH 08:35 | PROVIDERS: ATTEND Internal Medicine | DX: M19.071 Primary osteoarthritis, right ankle and foot (principal); L97.519 Non-pressure chronic ulcer of other part of right foot with unspecified severity; M79.89 Other specified soft tissue disorders; L97.509 Non-pressure chronic ulcer of other part of unspecified foot with unspecified severity; M77.31 Calcaneal spur, right foot | CPT/HCPCS: 73620 ==

== ENCOUNTER 2024-01-31 14:54 | Emergency (ER) | payer OTHER ==
[~2024-01-31] VITALS: Ht 157.5 cm; Wt 70.3 kg
[2024-01-31 15:37] LABS: BASOPHILS # (AUTO) 0.11 K/uL (0.00-0.20); BASOPHILS % (AUTO) 0.9 % (0.0-5.0); EOSINOPHILS # (AUTO) 0.26 K/uL (0.00-0.70); EOSINOPHILS % (AUTO) 2.1 % (0.0-8.0); HEMATOCRIT 36.1 % (42-54); IMMATURE GRANULOCYTE ABSOLUTE 0.05 K/uL (0-1); LYMPHOCYTES # (AUTO) 3.3 K/uL (1.0-4.8); LYMPHOCYTES % (AUTO) 27.1 % (21.0-51.0); MEAN CORPUSCULAR HEMOGLOBIN 28.3 pg (27.0-33.0); MEAN CORPUSCULAR HGB CONC 33.8 g/dL (32.0-36.0); MEAN CORPUSCULAR VOLUME 83.8 fL (79-99); MONOCYTES # (AUTO) 0.7 K/uL (0.1-1.0); MONOCYTES % (AUTO) 5.9 % (3.0-13.0); NEUTROPHILS # (AUTO) 7.8 K/uL (1.8-7.7); NEUTROPHILS % (AUTO) 63.6 % (40.0-77.0); PLATELET COUNT (AUTO) 277 K/uL (130-400); RED BLOOD CELL COUNT(AUTO) 4.31 MIL/uL (4.50-6.20); RED CELL DISTRIBUTION WIDTH 14.6 % (11.0-15.5); WHITE BLOOD COUNT (AUTO) 12.3 K/uL (4.8-10.8)
[2024-01-31 16:04] LABS: ALBUMIN 3.3 g/dL (3.5-5.0); BILIRUBIN,TOTAL 0.4 mg/dL (0.2-1.0); CREATININE 1.3 mg/dL (0.5-1.3); POTASSIUM 3.7 mmol/L (3.5-5.1); TOTAL PROTEIN, SERUM 7.7 g/dL (6.0-8.3)
[2024-01-31] MEDS: MAG/ALUM/SIMETH 30 ML UDCUP PO ONE (16:18)
[2024-01-31] MEDS: LIDOCAINE HCL 2% VISCOUS 15 ML UDCUP PO ONE (16:18)
[2024-01-31] MEDS: PANTOPRAZOLE 40 MG/VIAL IVP ONE (16:18)
[2024-01-31] MEDS: LACTATED RINGERS 1000ML 1,000 ML IV ONE (16:19)
[2024-01-31 16:41] LABS: AMPHET/METH SCREEN,URINE NEGATIVE (NEGATIVE); BARBITURATE SCREEN, URINE NEGATIVE (NEGATIVE); BENZODIAZEPINES SCREEN,URINE NEGATIVE (NEGATIVE); CANNABINOID SCREEN,URINE NEGATIVE (NEGATIVE); COCAINE SCREEN,URINE POSITIVE (NEGATIVE); OPIATE SCREEN,URINE NEGATIVE (NEGATIVE); PHENCYCLIDINE SCREEN,URINE NEGATIVE (NEGATIVE)
[2024-01-31 16:42] LABS: APPEARANCE,URINE CLEAR (CLEAR); BILIRUBIN,URINE NEGATIVE (NEGATIVE); COLOR,URINE LIGHT-YELLOW (YELLOW); GLUCOSE, URINE (UA) >=1000 mg/dL (NEGATIVE); KETONES,URINE NEGATIVE (NEGATIVE); LEUKOCYTE ESTERASE ,URINE NEGATIVE Leu/uL (NEGATIVE); NITRATE,URINE NEGATIVE (NEGATIVE); OCCULT BLOOD,URINE SMALL (NEGATIVE); PH,URINE 5.5 (5.0-8.0); PROTEIN,URINE 50 mg/dL (NEGATIVE); UROBILINOGEN,URINE 0.2 mg/dL (0.2-1.0)
[2024-01-31 17:06] LABS: ADD UA MICROSCOPIC YES
[2024-01-31 17:17] LABS: BACTERIA,URINE RARE /HPF (None Seen); MUCUS,URINE RARE LPF (None Seen); RBC,URINE 0-1 /HPF (0-1); SQUAMOUS EPITHELIAL CELL,UR RARE /HPF (0-2); YEAST,URINE BUDDING FEW /HPF (None Seen)
[2024-01-31 17:37] LABS: ACETAMINOPHEN < 1 mcg/mL (10-29); ALCOHOL, BLOOD < 3 mg/dL (0-10); SALICYLATE < 2.8 mg/dL (2.8-20.0)
[2024-01-31] MEDS: 0.9%NACL 1000ML 1,000 ML IV ONE (17:50)
[2024-01-31 20:05] VITALS: BP 115/62; PULSE 65; RESP 15; O2SAT 97
== END 2024-01-31 20:06 | disposition home or self-care (01) ==
LOC: EDH 14:54
DX: F14.129 Cocaine abuse with intoxication, unspecified (principal); E11.65 Type 2 diabetes mellitus with hyperglycemia; H57.12 Ocular pain, left eye; M79.672 Pain in left foot; I10 Essential (primary) hypertension; E11.9 Type 2 diabetes mellitus without complications; E78.00 Pure hypercholesterolemia, unspecified; Z79.82 Long term (current) use of aspirin; Z79.899 Other long term (current) drug therapy; Z98.890 Other specified postprocedural states
CPT/HCPCS: 99285; 96374; 70450; 96361; 82550; 80053; 80305; 83690; 85025; 81001; 36415; G0481; J7120; C9113

== ENCOUNTER 2024-06-01 20:06 | Emergency (ER) | payer OTHER ==
[~2024-06-01] VITALS: Ht 160 cm; Wt 69.4 kg
[~2024-06-01 20:06] MED LIST changes: +CLOP-31 PO; +LOSA-418 PO; -LOSA50TA64 PO; +METO25 PO
[2024-06-01 21:16] VITALS: TEMP 98.6
[2024-06-01 22:14] VITALS: BP 146/68; PULSE 65; RESP 16; O2SAT 98
== END 2024-06-01 22:19 | disposition home or self-care (01) ==
LOC: EDH 20:06
DX: T82.838A Hemorrhage due to vascular prosthetic devices, implants and grafts, initial encounter (principal); E11.9 Type 2 diabetes mellitus without complications; I10 Essential (primary) hypertension; Z79.01 Long term (current) use of anticoagulants; Z79.02 Long term (current) use of antithrombotics/antiplatelets; Z79.4 Long term (current) use of insulin; Z79.82 Long term (current) use of aspirin; Z79.899 Other long term (current) drug therapy; X58.XXXA Exposure to other specified factors, initial encounter
CPT/HCPCS: 71045

== ENCOUNTER 2024-06-04 16:03 | Emergency (ER) | payer OTHER ==
[~2024-06-04] VITALS: Ht 160 cm; Wt 73.9 kg
[2024-06-04 17:21] LABS: BASOPHILS # (AUTO) 0.12 K/uL (0.00-0.20); BASOPHILS % (AUTO) 1.4 % (0.0-5.0); EOSINOPHILS # (AUTO) 0.28 K/uL (0.00-0.70); EOSINOPHILS % (AUTO) 3.3 % (0.0-8.0); HEMATOCRIT 28.4 % (42-54); IMMATURE GRANULOCYTE ABSOLUTE 0.03 K/uL (0-1); LYMPHOCYTES # (AUTO) 2.6 K/uL (1.0-4.8); MEAN CORPUSCULAR HEMOGLOBIN 28.8 pg (27.0-33.0); MEAN CORPUSCULAR HGB CONC 33.1 g/dL (32.0-36.0); MEAN CORPUSCULAR VOLUME 87.1 fL (79-99); MONOCYTES # (AUTO) 0.7 K/uL (0.1-1.0); MONOCYTES % (AUTO) 7.9 % (3.0-13.0); NEUTROPHILS # (AUTO) 4.9 K/uL (1.8-7.7); NEUTROPHILS % (AUTO) 57.1 % (40.0-77.0); PLATELET COUNT (AUTO) 322 K/uL (130-400); RED BLOOD CELL COUNT(AUTO) 3.26 MIL/uL (4.50-6.20); RED CELL DISTRIBUTION WIDTH 12.8 % (11.0-15.5); WHITE BLOOD COUNT (AUTO) 8.6 K/uL (4.8-10.8)
[2024-06-04 17:33] LABS: CREATININE 1.1 mg/dL (0.5-1.3); POTASSIUM 3.6 mmol/L (3.5-5.1)
[2024-06-04 18:30] VITALS: BP 148/83; PULSE 78; RESP 18; TEMP 98.2; O2SAT 98
== END 2024-06-04 18:37 | disposition home or self-care (01) ==
LOC: EDH 16:03
DX: Z47.81 Encounter for orthopedic aftercare following surgical amputation (principal); I10 Essential (primary) hypertension; Z79.899 Other long term (current) drug therapy; Z79.4 Long term (current) use of insulin; Z79.82 Long term (current) use of aspirin; Z89.432 Acquired absence of left foot
CPT/HCPCS: 36415; 73630; 80048; 85025; 87040

== ENCOUNTER 2024-06-20 20:25 | Emergency (ER) | payer OTHER ==
[~2024-06-20] VITALS: Ht 160 cm; Wt 78.0 kg
[~2024-06-20 20:25] MED LIST changes: +DOXY100T2 PO
[2024-06-20] MEDS: ketOROlac 60 MG VIAL (30MG/ML) IM ONE (20:40)
[2024-06-20 20:44] VITALS: BP 151/72; PULSE 74; RESP 18; TEMP 98.8; O2SAT 98
--- NOTE | 2024-06-20 21:23 | ERN ---
ED Note History of Present Illness Stated Complaint: FALL, LEFT LEG INJURY, HEAD INJURY Chief Complaint: Mechanical Fall Time Seen by MD: 20:28 Time Seen by Midlevel: 20:28 Dictation: 53-YEAR-OLD MALE WHO PRESENTS TO THE EMERGENCY DEPARTMENT DUE TO REPORT OF HAVING SUSTAINED AN INJURY TO THE LEFT LOWER LEG DUE TO REPORTED HAVING SUSTAINED A FALL YESTERDAY AT HIS BROTHER'S HOUSE. PATIENT STATES THAT HE HAS GOT A PAIN IN THE LEFT TIB-FIB AREA FOR WHICH HE RATES IT A 5/10. SHE STATES THAT HE LOST HIS FOOTING CAUSING HIM TO LAND THE AFFECTED AREA. PATIENT DENIES HAVING SUSTAINED ANY LOSS OF CONSCIOUSNESS. UPON INITIAL EVALUATION, THE PATIENT PRESENTS WITH A NORMAL NEUROVASCULAR EXAMINATION. Allergies: Coded Allergies: No Known Drug Allergies (Unverified Allergy, Unknown, 06/04/21) Emergency Care ELEVATOR INSTALLER: None Home Meds Active Scripts Doxycycline Hyclate (Doxycycline Hyclate) 100 Mg Tablet, 100 MG PO DAILYBKFST for 7 Days, #8 TAB Prov:LUH RAMACHANDRAN MD 06/16/24 Metoprolol Tartrate (Lopressor) 25 Mg Tab, 25 MG PO BID, #60 TAB 0 Refills Prov:LORELEI BRASHER MD 05/31/24 Losartan Potassium (Cozaar) 50 Mg Tablet, 50 MG PO BID, #60 TAB 0 Refills Prov:LORELEI BRASHER MD 05/31/24 Clopidogrel Bisulfate (Plavix) 75 Mg Tablet, 75 MG PO DAILY, #30 TAB 0 Refills Prov:LORELEI BRASHER MD 05/31/24 Insulin Lispro (Humalog) 100 Unit/Ml Insuln.pen, 8 UNITS SQ TIDAC, #3 SYRINGE 0 Refills Prov:KARELY LANDONP 08/06/23 Insulin Glargine,Hum.rec.anlog (Lantus Solostar) 100 Unit/Ml (3 Ml) Insuln.pen, 25 UNIT SQ DAILY, #2 SYRINGE 0 Refills Prov:KARELY LANDON CREEL HAND 08/06/23 Atorvastatin Calcium (Atorvastatin Calcium) 40 Mg Tablet, 40 MG PO HS, #60 TAB 0 Refills Prov:KARELY LANDON CREEL HAND 08/06/23 Aspirin (ASPIRIN 81 MG ECTAB) 81 Mg Ectab, 81 MG PO DAILY, #60 TAB.EC 0 Refills Prov:KARELY LANDON CREEL HAND 08/06/23 Past Medical History Past Medical History: Diabetes-Type II, DVT, High Cholesterol, Hypertension Additional Past Medical Hx: PVD Surgical History: Other Surgical History Other: LT TMA, CARDIAC STENTS Family History: Negative Social History: Negative RN Note Reviewed/Agreed w/PFSH: Yes Review of System Dictation MS/EXTREMITY: LEFT LOWER LEG PAIN. Initial Vital Sign VS Vital Signs Date Time Temp Pulse Resp B/P (MAP) Pulse Ox O2 Delivery O2 Flow Rate FiO2 06/20/24 20:26 97.9 81 16 149/74 98 Room Air 06/20/24 20:44 0 21 Physical Exam Dictation GENERAL: AWAKE, ALERT, NAD HEAD/FACE: NORMOCEPHALIC, ATRAUMATIC EYES: PERRL, EOMI ENT: ORAL MUCOSA MOIST NECK: TRACHEA MIDLINE, SUPPLE CARDIOVASCULAR: RRR, NO EDEMA RESPIRATORY: SYMMETRICAL, NON-LABORED ABDOMEN: SOFT, NON-TENDER, NON-DISTENDED, NO GUARDING. SKIN: WARM, DRY, GOOD TURGOR, NO RASH MS/EXTREMITY: PULSES EQUAL, NO CYANOSIS, NEUROVASCULAR INTACT, FROM, MILD TENDERNESS TO THE LEFT MID TIB-FIB. NEURO: COAX4, GCS 15, STEADY GAIT, PSYCH: NORMAL BEHAVIOR, MOOD, AND AFFECT NORMAL Results (Laboratory/Radiology) X-RAY Comment: X-RAY OF THE LEFT TIB-FIB WITH NO CORTICAL ANOMALIES OR DEFORMITIES INTERPRETED BY ME. ED Course ED Course Orders Procedure Category Date Status Time Tibia/Fibula 2vws Rt RAD 06/20/24 Logged 20:34 Ketorolac 60mg/2ml PHA 06/20/24 Complete (Toradol 60mg/2ml) 21:00 Tibia/Fibula 2vws Lt RAD 06/20/24 Taken 20:53 Current Medications Medications (Trade) Dose Ordered Sig/Shiva Route PRN Reason Start Time Stop Time Status Last Admin Dose Admin Ketorolac Tromethamine (toRADol 60MG/ 2ML) 60 mg ONCE ONCE IM 06/20/24 21:00 06/20/24 21:01 DC 06/20/24 20:40 Vital Signs Date Time Temp Pulse Resp B/P (MAP) Pulse Ox O2 Delivery O2 Flow Rate FiO2 06/20/24 20:44 98.8 74 18 151/72 98 Room Air* 0 21 06/20/24 20:26 97.9 81 16 149/74 98 Room Air Medical Decision Making MDM MDM: DIFFERENTIAL DIAGNOSIS: CONTUSION LEFT LOWER LEG, LEFT TIB-FIB FRACTURE, LEFT LOWER SPRAIN. RATIONALE: TESTS CONSIDERED AND ORDERED SECONDARY TO SHARED DECISION MAKING INCLUDE: PREVIOUS OUTSIDE RECORDS REVIEWED: OLD ER VISITS. RISK OF COMPLICATION AND/OR MORBIDITY OR MORTALITY OF PATIENT MANAGEMENT: NONE MEDICATIONS-PER MEDICATION RECONCILIATION NEED FOR HOSPITALIZATION: PATIENT DOES NOT MEET CRITERIA FOR HOSPITALIZATION. NEED FOR EMERGENCY MAJOR/MINOR SURGERY: NO THERE ARE NO SOCIAL CONCERNS WITH THIS PATIENT. PRESCRIPTION DRUG MANAGEMENT PRESCRIPTIONS WILL INCLUDE SYMPTOMATIC CARE PATIENT'S PRIOR EXTERNAL MEDICAL RECORDS FROM OTHER ER VISITS WERE REVIEWED BY ME INDICATED. PRIOR TESTING AND RESULTS FROM PREVIOUS VISITS WERE REVIEWED. PRIOR TESTS WERE TAKEN INTO ACCOUNT WITH MEDICAL DECISION MAKING AND RESOURCE UTILIZATION, INDEPENDENT HISTORIAN/HISTORIANS WERE USED TO OBTAIN COMPLETE MEDICAL HISTORY. I INDEPENDENTLY INTERPRETED THE TEST THAT WERE PERFORMED, RESULTS WERE REVIEWED BY ME AND CONSIDERED FINDINGS ON RADIOLOGY IF ORDERED. MEDICAL MANAGEMENT AND EXAMINATION INTERPRETATION DISCUSSIONS WERE HAD BY ME WITH OTHER QUALIFIED HEALTHCARE PROFESSIONALS INDICATED FOR THE PATIENT'S CARE. DX & DISP Disposition: Discharge Departure Impression: Primary Impression: Sprain of left lower leg Condition: Stable Referrals: ELAN THOMAS MD (PCP) I have reviewed the case, and I agree with, Diagnosis and Plan ANDI GUEVARA Jun 20, 2024 21:23
--- NOTE | 2024-06-20 21:34 | HMCIMG ---
TIBIA/FIBULA 2VWS LT CLINICAL HISTORY: FALL, INJURY COMPARISON: None TECHNIQUE: AP and lateral images were obtained. FINDINGS: No obvious fracture or dislocation. No joint effusion. The soft tissues demonstrate advanced calcified atherosclerotic vascular disease. No radiopaque foreign bodies. IMPRESSION: No acute findings.
== END 2024-06-20 21:29 | disposition home or self-care (01) ==
LOC: EDH 20:25
DX: S83.8X2A Sprain of other specified parts of left knee, initial encounter (principal); E11.51 Type 2 diabetes mellitus with diabetic peripheral angiopathy without gangrene; E78.00 Pure hypercholesterolemia, unspecified; I10 Essential (primary) hypertension; Z79.02 Long term (current) use of antithrombotics/antiplatelets; Z79.4 Long term (current) use of insulin; Z79.82 Long term (current) use of aspirin; Z95.5 Presence of coronary angioplasty implant and graft; W18.39XA Other fall on same level, initial encounter; Y93.89 Activity, other specified; Y92.89 Other specified places as the place of occurrence of the external cause; Y99.8 Other external cause status
CPT/HCPCS: 99284; 73590; 96372; J1885

== ENCOUNTER 2024-07-14 10:08 | Emergency (ER) | payer OTHER ==
[~2024-07-14] VITALS: Ht 160 cm; Wt 77.1 kg
--- NOTE | 2024-07-14 10:25 | ERN ---
ED Note History of Present Illness Stated Complaint: ELEVATED BG Chief Complaint: Hyperglycemia Time Seen by MD: 10:18 Dictation: PATIENT IS A 53-YEAR-OLD DIABETIC MALE COMING IN TODAY STATES HIS BLOOD SUGARS HAVE BEEN HIGH FOR THE LAST SEVERAL DAYS NO FEVER NO CHILLS NO NAUSEA VOMITING NO SHORTNESS A BREATH. HE STATES HE IS COMPLIANT WITH HIS MEDICATIONS HOWEVER DOES NOT GO TO HIS DOCTOR BECAUSE I AM WAITING FOR MY INSURANCE TO KICK IN. Allergies: Coded Allergies: No Known Drug Allergies (Unverified Allergy, Unknown, 06/04/21) Home Meds Active Scripts Doxycycline Hyclate (Doxycycline Hyclate) 100 Mg Tablet, 100 MG PO DAILYBKFST for 7 Days, #8 TAB Prov:LUH RAMACHANDRAN MD 06/16/24 Metoprolol Tartrate (Lopressor) 25 Mg Tab, 25 MG PO BID, #60 TAB 0 Refills Prov:LORELEI BRASHER MD 05/31/24 Losartan Potassium (Cozaar) 50 Mg Tablet, 50 MG PO BID, #60 TAB 0 Refills Prov:LORELEI BRASHER MD 05/31/24 Clopidogrel Bisulfate (Plavix) 75 Mg Tablet, 75 MG PO DAILY, #30 TAB 0 Refills Prov:LORELEI BRASHER MD 05/31/24 Insulin Lispro (Humalog) 100 Unit/Ml Insuln.pen, 8 UNITS SQ TIDAC, #3 SYRINGE 0 Refills Prov:KARELY LANDONP 08/06/23 Insulin Glargine,Hum.rec.anlog (Lantus Solostar) 100 Unit/Ml (3 Ml) Insuln.pen, 25 UNIT SQ DAILY, #2 SYRINGE 0 Refills Prov:KARELY LANDON AFTER SCHOOL COUNSELOR 08/06/23 Atorvastatin Calcium (Atorvastatin Calcium) 40 Mg Tablet, 40 MG PO HS, #60 TAB 0 Refills Prov:KARELY LANDON AFTER SCHOOL COUNSELOR 08/06/23 Aspirin (ASPIRIN 81 MG ECTAB) 81 Mg Ectab, 81 MG PO DAILY, #60 TAB.EC 0 Refills Prov:KARELY LANDON AFTER SCHOOL COUNSELOR 08/06/23 Past Medical History Past Medical History: Diabetes-Type II, DVT, High Cholesterol, Hypertension Additional Past Medical Hx: PVD Surgical History: Other Surgical History Other: LT TMA, CARDIAC STENTS, LT ARM PORT FOR ABX PSYCH History: no pertinent psych hx Family History: Negative Social History: Negative RN Note Reviewed/Agreed w/PFSH: Yes Review of System Dictation CONSTITUTIONAL: NEGATIVE EXCEPT FOR HPI HEAD/FACE: NEGATIVE EXCEPT FOR HPI EENT: NEGATIVE EXCEPT FOR HPI RESPIRATORY: NEGATIVE EXCEPT FOR HPI GASTROINTESTINAL/ABDOMINAL: NEGATIVE EXCEPT FOR HPI GENITOURINARY: NEGATIVE EXCEPT FOR HPI MUSCULOSKELETAL: NEGATIVE EXCEPT FOR HPI INTEGUMENTARY: NEGATIVE EXCEPT FOR HPI NEUROLOGICAL/PSYCH: NEGATIVE EXCEPT FOR HPI HEMATOLOGIC/LYMPHATIC: NEGATIVE EXCEPT FOR HPI ALL SYSTEMS NEGATIVE, EXCEPT NOTED ABOVE. 13 POINT REVIEW OF SYSTEMS ASSESSED AND ALL NEGATIVE EXCEPT FOR ABOVE. Initial Vital Sign VS Vital Signs Date Time Temp Pulse Resp B/P (MAP) Pulse Ox O2 Delivery O2 Flow Rate FiO2 07/14/24 10:15 98.8 82 18 150/92 97 07/14/24 11:20 Room Air* 0 21 Physical Exam Dictation VITAL SIGNS REVIEWED GENERAL APPEARANCE: ALERT, ORIENTED X 3, NO ACUTE DISTRESS, WELL DEVELOPED, NOURISHED. HEAD AND FACE: NON-TRAUMATIC. EYES: PERRL, PINK CONJUNCTIVAS, EYELID NO TRAUMA, ANTERIOR CHAMBER WITH ARCUS SENILIS. EARS: PINNAS INTACT AND NO SIGNS OF TRAUMA OR ERYTHEMA EAR CANALS CLEAR AND NO DISCHARGE TM NO ERYTHEMA NOSE: NO DISCHARGE, NO BLEEDING. OROPHARYNX: MOUTH NORMAL, TONGUE PINK, PHARYNX CLEAR,NO ERYTHEMA, TONSILS NO EXUDATES, NO ABSCESSES NOTED, MUCOUS MEMBRANE MOIST NECK: SUPPLE, NON-TENDER, NO THYROMEGALY, NO MASSES, NO JVD, NO BRUITS BREAST:DEFERRED CHEST:NO TENDERNESS, NO CREPITUS, NO PARADOXICAL MOVEMENT, NO RETRACTIONS LUNGS:CLEAR, WELL-VENTILATED, SYMMETRIC, NO RALES, NO WHEEZING, NO RHONCHI, NO STRIDOR, GOOD BREATH SOUNDS BILATERALLY HEART: REGULAR RATE, REGULAR RHYTHM, NO MURMUR, NO GALLOPS VASCULAR: NO PERIPHERAL EDEMA, ABDOMEN: SOFT, POSITIVE BOWEL SOUNDS, NONDISTENDED, NO GUARDING, NONTENDER, NO REBOUND, NO MASSES NO HEPATOMEGALY, NO SPLENOMEGALY, NO MOELLER'S SIGN, NO HERNIAS. RECTAL: DEFERRED GENITAL: DEFERRED NEUROLOGICAL: NORMAL SPEECH, MOTOR FUNCTION INTACT, SENSORY FUNCTION INTACT MUSCULOSKELETAL: NECK NONTENDER, FULL RANGE OF MOTION, BACK NONTENDER, FULL RANGE OF MOTION, EXTREMITIES: NONTENDER, FULL RANGE OF MOTION PARTIAL AMPUTATION OF LEFT FOOT TO INCLUDE ALL TOES. SKIN: COLOR PINK, DRY, NO TURGOR, NO RASH, NO LACERATIONS, NO ABRASIONS, NO CONTUSIONS. LYMPHATIC: DEFERRED Results (Laboratory/Radiology) Laboratory/Radiology Labs Reviewed?: Yes ED Course ED Course 1425, REPEAT BLOOD SUGAR 116 AFTER TREATMENT. PATIENT DISCHARGED HOME TO FOLLOW UP WITH HIS DOCTOR IN 1-2 DAYS AND CONTINUE ALL MEDICATIONS AND TREATMENTS. Medical Decision Making MDM MDM: DIFFERENTIAL DIAGNOSIS: DEHYDRATION/ELECTROLYTE IMBALANCE/UNCONTROLLED DIABETES/DKA RATIONALE: TESTS CONSIDERED AND ORDERED SECONDARY TO SHARED DECISION MAKING INCLUDE: LABS PREVIOUS OUTSIDE RECORDS REVIEWED: OLD ER VISITS. REVIEWED RISK OF COMPLICATION AND/OR MORBIDITY OR MORTALITY OF PATIENT MANAGEMENT: NONE MEDICATIONS-PER MEDICATION RECONCILIATION SEE NURSE'S NOTES NEED FOR HOSPITALIZATION: PATIENT DOES NOT MEET CRITERIA FOR HOSPITALIZATION. NO NEED FOR EMERGENCY MAJOR/MINOR SURGERY: NO THERE ARE NO SOCIAL CONCERNS WITH THIS PATIENT. PRESCRIPTION DRUG MANAGEMENT NONE PRESCRIPTIONS WILL INCLUDE SYMPTOMATIC CARE PATIENT'S PRIOR EXTERNAL MEDICAL RECORDS FROM OTHER ER VISITS WERE REVIEWED BY ME INDICATED. PRIOR TESTING AND RESULTS FROM PREVIOUS VISITS WERE REVIEWED. PRIOR TESTS WERE TAKEN INTO ACCOUNT WITH MEDICAL DECISION MAKING AND RESOURCE UTILIZATION, INDEPENDENT HISTORIAN/HISTORIANS WERE USED TO OBTAIN COMPLETE MEDICAL HISTORY. I INDEPENDENTLY INTERPRETED THE TEST THAT WERE PERFORMED, RESULTS WERE REVIEWED BY ME AND CONSIDERED FINDINGS ON RADIOLOGY IF ORDERED. MEDICAL MANAGEMENT AND EXAMINATION INTERPRETATION DISCUSSIONS WERE HAD BY ME WITH OTHER QUALIFIED HEALTHCARE PROFESSIONALS INDICATED FOR THE PATIENT'S CARE. DX & DISP Disposition: Discharge Departure Impression: Primary Impression: Uncontrolled diabetes mellitus Additional Impressions: Mild dehydration, Chronic kidney disease Condition: Stable Additional Instructions: FOLLOW-UP WITH PRIMARY CARE PROVIDER IN 1 TO 2 DAYS. TAKE MEDICATIONS DIRECTED HERE IN THE EMERGENCY ROOM. OKAY TO CONTINUE HOME MEDICATIONS UNLESS O THERWISE DISCUSSED DURING YOUR VISIT IN THE EMERGENCY ROOM TODAY. RETURN TO YOUR NEAREST EMERGENCY ROOM IF SYMPTOMS WORSEN OR IF THERE IS NO IMPROVEMENT. CALL 911 IF YOU NEED IMMEDIATE ASSISTANCE. TAKE TYLENOL OR MOTRIN [id number] NEEDED AND IF NO CONTRAINDICATIONS ARE PRESENT. INCREASE ORAL HYDRATION. A WOUND CULTURE OR URINE CULTURE WAS ORDERED HERE IN THE EMERGENCY ROOM DEPARTMENT PLEASE FOLLOW-UP WITH PRIMARY CARE PROVIDER AND ADVISE THEM TO GET REPEAT PORTS FROM OUR FACILITY. IF YOU HAD ANY MADDIE WRAP/SPLINTS THAT WERE APPLIED HERE, PLEASE DO NOT REMOVE THEM UNTIL YOU SEE YOUR PRIMARY CARE OR SPECIALTY. CONTINUE ALL MEDICATIONS AND TREATMENTS AT HOME SEE YOUR PRIMARY CARE DOCTOR FOR FOLLOW UP IN 1-2 DAYS. Referrals: ELAN THOMAS MD (PCP) Time of Disposition: 14:27 I have reviewed the case, and I agree with, Diagnosis and Plan I performed this substantive portion of this visit. I have reviewed and personally made and approve the management plan that is documented in the note by myself or the SHEA. I acknowledge full responsibility for the patient's management plan. DO CORTES NP Jul 14, 2024 10:24 NAT DOSHI MD Jul 20, 2024 11:09
[2024-07-14 10:54] LABS: BASOPHILS % (AUTO) 1.2 % (0.0-5.0); EOSINOPHILS # (AUTO) 0.22 K/uL (0.00-0.70); EOSINOPHILS % (AUTO) 2.7 % (0.0-8.0); HEMATOCRIT 38.8 % (42-54); IMMATURE GRANULOCYTE ABSOLUTE 0.03 K/uL (0-1); LYMPHOCYTES # (AUTO) 2.5 K/uL (1.0-4.8); LYMPHOCYTES % (AUTO) 30.1 % (21.0-51.0); MEAN CORPUSCULAR HEMOGLOBIN 28.2 pg (27.0-33.0); MEAN CORPUSCULAR HGB CONC 32.7 g/dL (32.0-36.0); MEAN CORPUSCULAR VOLUME 86.2 fL (79-99); MONOCYTES # (AUTO) 0.5 K/uL (0.1-1.0); MONOCYTES % (AUTO) 6.2 % (3.0-13.0); NEUTROPHILS # (AUTO) 4.9 K/uL (1.8-7.7); NEUTROPHILS % (AUTO) 59.4 % (40.0-77.0); PLATELET COUNT (AUTO) 306 K/uL (130-400); WHITE BLOOD COUNT (AUTO) 8.3 K/uL (4.8-10.8)
--- NOTE | 2024-07-14 10:57 | NUR ---
PT JUST NOW PLACED IN ED BED 19
[2024-07-14 10:59] LABS: CREATININE 1.2 mg/dL (0.5-1.3); POTASSIUM 4.4 mmol/L (3.5-5.1)
[2024-07-14] MEDS: 0.9%NACL 1000ML 1,000 ML IV ONE (11:26)
[2024-07-14] MEDS: morPHINE 2 MG SYG IM ONE (13:11)
[2024-07-14] MEDS: INSULIN humuLIN R 100 UNIT/ML 3ML IV ONE (13:26)
[2024-07-14 13:56] LABS: ADD UA MICROSCOPIC YES
[2024-07-14 13:57] LABS: APPEARANCE,URINE CLEAR (CLEAR); BILIRUBIN,URINE NEGATIVE (NEGATIVE); COLOR,URINE COLORLESS (YELLOW); GLUCOSE, URINE (UA) >=1000 mg/dL (NEGATIVE); KETONES,URINE NEGATIVE (NEGATIVE); LEUKOCYTE ESTERASE ,URINE NEGATIVE Leu/uL (NEGATIVE); NITRATE,URINE NEGATIVE (NEGATIVE); OCCULT BLOOD,URINE SMALL (NEGATIVE); PH,URINE 5.5 (5.0-8.0); PROTEIN,URINE 70 mg/dL (NEGATIVE); UROBILINOGEN,URINE 0.2 mg/dL (0.2-1.0); WBC,URINE 0-1 /HPF (0-1)
[2024-07-14 14:35] VITALS: BP 160/79; PULSE 77; RESP 20; TEMP 97.6; O2SAT 100
== END 2024-07-14 14:41 | disposition home or self-care (01) ==
LOC: EDH 10:08
DX: E11.65 Type 2 diabetes mellitus with hyperglycemia (principal); E86.0 Dehydration; I12.9 Hypertensive chronic kidney disease with stage 1 through stage 4 chronic kidney disease, or unspecified chronic kidney disease; E11.22 Type 2 diabetes mellitus with diabetic chronic kidney disease; N18.9 Chronic kidney disease, unspecified; E78.00 Pure hypercholesterolemia, unspecified; Z79.02 Long term (current) use of antithrombotics/antiplatelets; Z79.4 Long term (current) use of insulin; Z79.82 Long term (current) use of aspirin; Z86.718 Personal history of other venous thrombosis and embolism; Z95.5 Presence of coronary angioplasty implant and graft
CPT/HCPCS: 99284; 96374; 80048; 85025; 82948; 82010; 81001; 36415; 96372; J1815; J2270; J7030

== ENCOUNTER 2024-09-22 15:38 | Emergency (ER) | payer OTHER ==
[~2024-09-22] VITALS: Ht 160 cm; Wt 74.8 kg
[2024-09-22 16:31] VITALS: BP 140/92; PULSE 76; RESP 20; TEMP 99.3
[2024-09-22] MEDS: 0.9%NACL 1000ML 1,000 ML IV ONE (17:00)
--- NOTE | 2024-09-22 17:24 | HMCIMG ---
PORTABLE CHEST RADIOGRAPH INDICATION: sob COMPARISON: 06/13/2024 FINDINGS: Heart size is normal. The pulmonary vascularity and avni appear normal. No abnormal pulmonary parenchymal opacity or consolidation identified. No significant pleural effusion noted. No pneumothorax detected. IMPRESSION: No radiographic evidence for any acute cardiopulmonary process.
[2024-09-22 17:31] LABS: EOSINOPHILS # (AUTO) 0.28 K/uL (0.00-0.70); EOSINOPHILS % (AUTO) 2.9 % (0.0-8.0); HEMATOCRIT 35.6 % (42-54); IMMATURE GRANULOCYTE ABSOLUTE 0.02 K/uL (0-1); LYMPHOCYTES # (AUTO) 3.1 K/uL (1.0-4.8); LYMPHOCYTES % (AUTO) 32.1 % (21.0-51.0); MEAN CORPUSCULAR HEMOGLOBIN 28.3 pg (27.0-33.0); MEAN CORPUSCULAR HGB CONC 33.4 g/dL (32.0-36.0); MEAN CORPUSCULAR VOLUME 84.6 fL (79-99); MONOCYTES # (AUTO) 0.6 K/uL (0.1-1.0); MONOCYTES % (AUTO) 6.3 % (3.0-13.0); NEUTROPHILS # (AUTO) 5.6 K/uL (1.8-7.7); NEUTROPHILS % (AUTO) 57.5 % (40.0-77.0); PLATELET COUNT (AUTO) 309 K/uL (130-400); RED BLOOD CELL COUNT(AUTO) 4.21 MIL/uL (4.50-6.20); RED CELL DISTRIBUTION WIDTH 13.2 % (11.0-15.5); WHITE BLOOD COUNT (AUTO) 9.7 K/uL (4.8-10.8)
[2024-09-22 18:03] LABS: CARBON DIOXIDE 28 mmol/L (21-32); CHLORIDE 101 mmol/L (101-111); CREATININE 1.2 mg/dL (0.5-1.3); GLOMERULAR FILTR. RATE CALC 73 mL/min (>90); GLUCOSE,RANDOM 366 mg/dL (70-105); POTASSIUM 3.7 mmol/L (3.5-5.1); SODIUM SERUM 138 mmol/L (136-145); UREA NITROGEN, BLOOD 16 mg/dL (7-18)
[2024-09-22 18:05] LABS: ALANINE AMINOTRANSFERASE 13 U/L (12-78); ASPARTATE AMINOTRANSFERASE 6 U/L (10-37); BILIRUBIN,DIRECT < 0.1 mg/dL (0.0-0.3); BILIRUBIN,TOTAL 0.2 mg/dL (0.2-1.0); CREATINE KINASE, TOTAL 79 U/L (21-232); TOTAL PROTEIN, SERUM 7.6 g/dL (6.0-8.3)
[2024-09-22 18:10] LABS: B-TYPE NATRIURETIC PEPTIDE 63 pg/mL (0-100)
--- NOTE | 2024-09-22 20:05 | ERN ---
General Chief Complaint: Weakness Stated Complaint: WEAKNESS,MULTIPLE COMPLAINTS Time Seen by MD: 15:39 Time Seen by Midlevel: 15:39 Source: patient History of Present Illness Initial Comments The patient is a 54-year-old male with a past medical history of type 2 diabetes, hyperlipidemia, and hypertension presenting to the emergency department with generalized body weakness, diffuse abdominal pain, diarrhea, and hyperglycemia. The patient states the diarrhea has been intermittent in nature over the last month. Allergies: Coded Allergies: No Known Drug Allergies (Unverified Allergy, Unknown, 06/04/21) Home Meds Active Scripts Doxycycline Hyclate (Doxycycline Hyclate) 100 Mg Tablet, 100 MG PO DAILYBKFST for 7 Days, #8 TAB Prov:LUH RAMACHANDRAN MD 06/16/24 Metoprolol Tartrate (Lopressor) 25 Mg Tab, 25 MG PO BID, #60 TAB 0 Refills Prov:LORELEI BRASHER MD 05/31/24 Losartan Potassium (Cozaar) 50 Mg Tablet, 50 MG PO BID, #60 TAB 0 Refills Prov:LORELEI BRASHER MD 05/31/24 Clopidogrel Bisulfate (Plavix) 75 Mg Tablet, 75 MG PO DAILY, #30 TAB 0 Refills Prov:LORELEI BRASHER MD 05/31/24 Insulin Lispro (Humalog) 100 Unit/Ml Insuln.pen, 8 UNITS SQ TIDAC, #3 SYRINGE 0 Refills Prov:KARELY LANDON APRN 08/06/23 Insulin Glargine,Hum.rec.anlog (Lantus Solostar) 100 Unit/Ml (3 Ml) Insuln.pen, 25 UNIT SQ DAILY, #2 SYRINGE 0 Refills Prov:KARELY LANDON COOKER SULFITE 08/06/23 Atorvastatin Calcium (Atorvastatin Calcium) 40 Mg Tablet, 40 MG PO HS, #60 TAB 0 Refills Prov:KARELY LANDON COOKER SULFITE 08/06/23 Aspirin (ASPIRIN 81 MG ECTAB) 81 Mg Ectab, 81 MG PO DAILY, #60 TAB.EC 0 Refills Prov:KARELY LANDON COOKER SULFITE 08/06/23 Past Medical History Past Medical History: Diabetes-Type II, High Cholesterol, Hypertension Medical History Other: PVD Past Surgical History: Other Surgical History Other: LT TMA, CARDIAC STENTS, LT ARM PORT FOR ABX Family History Family History: Negative Social History Social History: Negative ROS Dictation CONSTITUTIONAL: Negative except for HPI HEAD/FACE: Negative except for HPI EENT: Negative except for HPI RESPIRATORY: Negative except for HPI GASTROINTESTINAL/ABDOMINAL: Negative except for HPI GENITOURINARY: Negative except for HPI MUSCULOSKELETAL: Negative except for HPI INTEGUMENTARY: Negative except for HPI NEUROLOGICAL/PSYCH: Negative except for HPI HEMATOLOGIC/LYMPHATIC: Negative except for HPI All Systems Negative, Except as noted above. 13 point review of systems assessed and all negative except for above. Physical Exam Physical Exam Dictation Vital Signs reviewed General Appearance: Alert, oriented x 3, no acute distress, well developed, nourished. Head and Face: non-traumatic. Eyes: PERRL, pink conjunctivas, eyelid no trauma, anterior chamber with arcus senilis. Ears: Pinnas intact and no signs of trauma or erythema ear canals clear and no discharge TM no erythema Nose: No discharge, no bleeding. Oropharynx: Mouth normal, tongue pink, pharynx clear,no erythema, tonsils no exudates, no abscesses noted, mucous membrane moist Neck: Supple, non-tender, no thyromegaly, no masses, no JVD, no bruits Breast:Deferred Chest:No tenderness, no crepitus, no paradoxical movement, no retractions Lungs:Clear, well-ventilated, symmetric, no rales, no wheezing, no rhonchi, no stridor, good breath sounds bilaterally Heart: Regular rate, regular rhythm, no murmur, no gallops Vascular: no peripheral edema, Abdomen: Soft, positive bowel sounds, nondistended, no guarding, nontender, no rebound, no masses no hepatomegaly, no splenomegaly, no Marx's sign, no hernias. Rectal: Deferred Genital: Deferred Neurological: Normal speech, motor function intact, sensory function intact Musculoskeletal: Neck nontender, full range of motion, back nontender, full range of motion, Extremities: nontender, full range of motion Skin: Color pink, dry, no turgor, no rash, no lacerations, no abrasions, no contusions. Lymphatic: Deferred Results Laboratory and Microbiology Lab and Micro Result Laboratory Tests Test 09/22/24 17:05 White Blood Count 9.7 K/uL (4.8-10.8) Red Blood Count 4.21 MIL/uL (4.50-6.20) L Hemoglobin 11.9 g/dL (14.0-18.0) L Hematocrit 35.6 % (42-54) L Mean Corpuscular Volume 84.6 fL (79-99) Mean Corpuscular Hemoglobin 28.3 pg (27.0-33.0) Mean Corpuscular Hemoglobin Concent 33.4 g/dL (32.0-36.0) Red Cell Distribution Width 13.2 % (11.0-15.5) Platelet Count 309 K/uL (130-400) Mean Platelet Volume 10.9 fL (7.5-10.5) H Immature Granulocyte % (Auto) 0.2 % (0-1) Neutrophils (%) (Auto) 57.5 % (40.0-77.0) Lymphocytes (%) (Auto) 32.1 % (21.0-51.0) Monocytes (%) (Auto) 6.3 % (3.0-13.0) Eosinophils (%) (Auto) 2.9 % (0.0-8.0) Basophils (%) (Auto) 1.0 % (0.0-5.0) Neutrophils # (Auto) 5.6 K/uL (1.8-7.7) Lymphocytes # (Auto) 3.1 K/uL (1.0-4.8) Monocytes # (Auto) 0.6 K/uL (0.1-1.0) Eosinophils # (Auto) 0.28 K/uL (0.00-0.70) Basophils # (Auto) 0.10 K/uL (0.00-0.20) Absolute Immature Granulocyte (auto 0.02 K/uL (0-1) Nucleated Red Blood Cells 0.0 % (0.0-0.19) Sodium Level 138 mmol/L (136-145) Potassium Level 3.7 mmol/L (3.5-5.1) Chloride Level 101 mmol/L (101-111) Carbon Dioxide Level 28 mmol/L (21-32) Blood Urea Nitrogen 16 mg/dL (7-18) Creatinine 1.2 mg/dL (0.5-1.3) Glomerular Filtration Rate Calc 73 mL/min (>90) Random Glucose 366 mg/dL (70-105) H Lactic Acid Level 2.2 mmol/L (0.8-2.5) Total Calcium 8.2 mg/dL (8.5-10.1) L Magnesium Level 2.20 mg/dL (1.80-2.40) Total Bilirubin 0.2 mg/dL (0.2-1.0) Direct Bilirubin < 0.1 mg/dL (0.0-0.3) Aspartate Amino Transf (AST/SGOT) 6 U/L (10-37) L Alanine Aminotransferase (ALT/SGPT) 13 U/L (12-78) Alkaline Phosphatase 106 U/L (50-136) Total Creatine Kinase 79 U/L (21-232) # Troponin I High Sensitivity 9 ng/L (4-75) B-Type Natriuretic Peptide 63 pg/mL (0-100) Total Protein 7.6 g/dL (6.0-8.3) Albumin 3.0 g/dL (3.5-5.0) L Lipase 28 U/L (16-77) Procalcitonin < 0.05 ng/mL (0.05-0.5) L Labs Reviewed?: Yes MDM MDM: The patient is a 54-year-old male with a past medical history of type 2 diabetes, hyperlipidemia, and hypertension presenting to the emergency department with generalized body weakness, diffuse abdominal pain, diarrhea, and hyperglycemia. The patient states the diarrhea has been intermittent in nature over the last month. On physical examination the patient is in no acute distress. Vital signs are remarkable for a temperature of 99.3. Heart rate of 76 beats per minute. Blood pressure of 140/92. We obtained basic labs. His CBC shows normal white blood cell count of 9.7. His hemoglobin is stable at 11.9. His platelet count is 309. Chemistries reveal an elevated random glucose of 366. Ketones were ordered however the 1st ketones that were drawn were unable to be processed by lab stating that the sample was too old. Lactic acid is 2.2. Liver function tests are within normal ranges. Cardiac enzymes are negative. Procalcitonin is negative. Patient is not in DKA. Anion gap is normal. Patient was given 1 L of IV fluids he will be discharged home with close return precautions. Differential diagnosis: DKA, dehydration, electrolyte abnormality, HHS There are no social concerns with this patient. Prescription drug management Prescriptions will include: None Medical management and examination interpretation discussions were had by me with other qualified healthcare professionals as indicated for the patient's care. ED Course Orders Procedure Category Date Status Time Cbc With Differential LAB 09/22/24 Complete 16:31 Basic Metabolic Panel LAB 09/22/24 Complete 16:31 Hepatic Function Panel LAB 09/22/24 Complete 16:31 Lipase LAB 09/22/24 Complete 16:31 Magnesium LAB 09/22/24 Complete 16:31 Lactic Acid LAB 09/22/24 Complete 16:31 Procalcitonin LAB 09/22/24 Complete 16:31 Creatine Kinase, Total LAB 09/22/24 Complete 16:31 0.9%Nacl 1000ml (Ns PHA 09/22/24 Complete 1000ml) 17:00 Troponin I High LAB 09/22/24 Complete Sensitivity 16:31 B-Type Natriuretic LAB 09/22/24 Complete Peptide 16:31 Chest 1vw RAD 09/22/24 Resulted 16:31 Bedside Glucose CPOE 09/22/24 Transmitted Fingerstick 19:41 Current Medications Medications (Trade) Dose Ordered Sig/Shiva Route PRN Reason Start Time Stop Time Status Last Admin Dose Admin Sodium Chloride 1,000 ml @ 0 mls/hr ONCE ONCE IV 09/22/24 17:00 09/22/24 17:01 DC Vital Signs Date Time Temp Pulse Resp B/P (MAP) Pulse Ox O2 Delivery O2 Flow Rate FiO2 09/22/24 16:31 99.3 76 20 140/92 99 DX & DISP Disposition: Discharge Departure Impression: Primary Impression: Type 2 diabetes mellitus with hyperglycemia Additional Impression: Mild dehydration Condition: Stable Additional Instructions: Your blood work today is stable. Your sugar was elevated in the 300s however you were given IV fluids and it was trending downwards. You will need to follow up with your primary care doctor for possible medication adjustments for your diabetes. Your chest x-ray does not show any evidence of infection. Please follow up with your primary care doctor for further evaluation. Referrals: ELAN THOMAS MD (PCP) I have reviewed the case, and I agree with, Diagnosis and Plan I performed the substantive portion of the visit. I have reviewed and personally made and approve the management plan that is documented in the note by myself or the SHEA. I acknowledge for responsibility for the patient's management plan. PADMINI BERGMAN Sep 22, 2024 20:05 MARU DE LOS SANTOS DO Sep 23, 2024 07:12
== END 2024-09-22 20:49 | disposition left against medical advice (07) ==
LOC: EDH 15:38
DX: E11.65 Type 2 diabetes mellitus with hyperglycemia (principal); E86.0 Dehydration; E78.00 Pure hypercholesterolemia, unspecified; I10 Essential (primary) hypertension; E11.51 Type 2 diabetes mellitus with diabetic peripheral angiopathy without gangrene; Z79.02 Long term (current) use of antithrombotics/antiplatelets; Z79.4 Long term (current) use of insulin; Z79.82 Long term (current) use of aspirin; Z79.899 Other long term (current) drug therapy; Z95.5 Presence of coronary angioplasty implant and graft
CPT/HCPCS: 36415; 71045; 80048; 80076; 82550; 83605; 83690; 83735; 83880; 84145; 84484; 85025; 99284

== ENCOUNTER → 2024-09-23 | Emergency (ER) | payer OTHER | END | disposition left against medical advice (07) | LOC: EDH 13:45 | DX: R73.9 Hyperglycemia, unspecified (principal); R19.7 Diarrhea, unspecified; Z53.21 Procedure and treatment not carried out due to patient leaving prior to being seen by health care provider ==

== ENCOUNTER 2024-09-30 12:58 | Emergency (ER) | payer OTHER ==
[~2024-09-30] VITALS: Ht 160 cm; Wt 74.8 kg
[2024-09-30 13:00] VITALS: BP 152/72; PULSE 69; RESP 16; TEMP 98.4
[2024-09-30 14:17] LABS: BASOPHILS % (AUTO) 0.8 % (0.0-5.0); EOSINOPHILS # (AUTO) 0.25 K/uL (0.00-0.70); EOSINOPHILS % (AUTO) 1.9 % (0.0-8.0); HEMATOCRIT 39.8 % (42-54); IMMATURE GRANULOCYTE ABSOLUTE 0.07 K/uL (0-1); LYMPHOCYTES # (AUTO) 2.6 K/uL (1.0-4.8); LYMPHOCYTES % (AUTO) 19.9 % (21.0-51.0); MEAN CORPUSCULAR HEMOGLOBIN 28.3 pg (27.0-33.0); MEAN CORPUSCULAR HGB CONC 33.7 g/dL (32.0-36.0); MEAN CORPUSCULAR VOLUME 84.1 fL (79-99); MONOCYTES # (AUTO) 0.6 K/uL (0.1-1.0); MONOCYTES % (AUTO) 4.9 % (3.0-13.0); NEUTROPHILS # (AUTO) 9.4 K/uL (1.8-7.7); PLATELET COUNT (AUTO) 307 K/uL (130-400); RED BLOOD CELL COUNT(AUTO) 4.73 MIL/uL (4.50-6.20); RED CELL DISTRIBUTION WIDTH 13.2 % (11.0-15.5)
[2024-09-30 14:31] LABS: CREATININE 1.1 mg/dL (0.5-1.3); POTASSIUM 4.6 mmol/L (3.5-5.1)
[2024-09-30] MEDS ORDERED: INSULIN humuLIN R 100 UNIT/ML 3ML IV STA (15:10)
[2024-09-30] MEDS ORDERED: 0.9%NACL 1000ML 1,000 ML IV STA (15:10)
--- NOTE | 2024-09-30 15:54 | NUR ---
PATIENT CALLED MULTIPLE TIMES. SEARCHED FOR IN LOBBY AND RESTROOM. ER PROVIDER AND CHARGE MADE AWARE.
--- NOTE | 2024-09-30 15:59 | ERN ---
ED Note History of Present Illness Stated Complaint: DIARRHEA Chief Complaint: Diarrhea Time Seen by MD: 13:09 Time Seen by Midlevel: 13:15 Dictation: 54 y/o male witih history of HTN, DM min in it was complaints of diarrhea has been going on for two months. Patient was seen earlier this month for same complaint. Denies any blood in his stool denies any fever nausea or vomiting. Allergies: Coded Allergies: No Known Drug Allergies (Unverified Allergy, Unknown, 06/04/21) Home Meds Active Scripts Doxycycline Hyclate (Doxycycline Hyclate) 100 Mg Tablet, 100 MG PO DAILYBKFST for 7 Days, #8 TAB Prov:LUH RAMACHANDRAN MD 06/16/24 Metoprolol Tartrate (Lopressor) 25 Mg Tab, 25 MG PO BID, #60 TAB 0 Refills Prov:LORELEI BRASHER MD 05/31/24 Losartan Potassium (Cozaar) 50 Mg Tablet, 50 MG PO BID, #60 TAB 0 Refills Prov:LORELEI BRASHER MD 05/31/24 Clopidogrel Bisulfate (Plavix) 75 Mg Tablet, 75 MG PO DAILY, #30 TAB 0 Refills Prov:LORELEI BRASHER MD 05/31/24 Insulin Lispro (Humalog) 100 Unit/Ml Insuln.pen, 8 UNITS SQ TIDAC, #3 SYRINGE 0 Refills Prov:KARELY LANDON APRN 08/06/23 Insulin Glargine,Hum.rec.anlog (Lantus Solostar) 100 Unit/Ml (3 Ml) Insuln.pen, 25 UNIT SQ DAILY, #2 SYRINGE 0 Refills Prov:KARELY LANDON APRN 08/06/23 Atorvastatin Calcium (Atorvastatin Calcium) 40 Mg Tablet, 40 MG PO HS, #60 TAB 0 Refills Prov:KARELY LANDON [employer] 08/06/23 Aspirin (ASPIRIN 81 MG ECTAB) 81 Mg Ectab, 81 MG PO DAILY, #60 TAB.EC 0 Refills Prov:KARELY LANDON [employer]PERATOR 08/06/23 Past Medical History Past Medical History: Diabetes-Type II, High Cholesterol, Hypertension Additional Past Medical Hx: PVD Surgical History: Other Surgical History Other: LT TMA, CARDIAC STENTS, LT ARM PORT FOR ABX Family History: Negative Social History: Negative Review of System Dictation Constitutional: Negative for fever,chills, and weight loss Eyes: Negative for injury, pain,redness, and discharge ENT: Negative for injury,pain or swelling Cardiovascular: Negative for chest pain, palpitations, and edema Respiratory: Negative for shortness of breath, cough, and wheezing, Abdomen/GI: Complaining of abdominal pain and diarrhea, Back: Negative for injury and pain : Negative for injury, bleeding and discharge MS/Extremity: Negative for injury and deformity Skin: Negative for rash, and discoloration Neuro: Negative for headache, weakness, numbness, tingling, and seizure Psych: Negative for suicide ideation, homicidal ideation, and hallucinations Review of Systems: was completed Initial Vital Sign VS Vital Signs Date Time Temp Pulse Resp B/P (MAP) Pulse Ox O2 Delivery O2 Flow Rate FiO2 09/30/24 13:00 98.4 69 16 152/72 100 Room Air Physical Exam Dictation General: awake, alert, NAD Head/Face: Normocephalic, atraumatic Eyes: PERRL, EOMI, vision at baseline ENT: oral cavity clear, TMs clear, no signs of infection Neck: Trachea midline, supple, no nuchal rigidity Cardiovascular: RRR, normal S1/S2, No MRGs, no JVD Respiratory: CTAB, no respiratory distress, No rales or wheezes Abdomen: Soft, non-tender, non-distended, normal bowel sounds, no guarding or rebound. Skin: Warm, dry, normal turgor, no rash MS/Extremity: Pulses equal, no cyanosis, neurovascular intact, FROM Neuro: COAx4, GCS 15, strength 5/5, CN 2-12 intact, normal cerebellar exam, normal gait, Psych: Normal behavior, mood, and affect normal Results (Laboratory/Radiology) Laboratory/Radiology Laboratory Tests Test 09/30/24 14:02 White Blood Count 13.0 K/uL (4.8-10.8) H Red Blood Count 4.73 MIL/uL (4.50-6.20) Hemoglobin 13.4 g/dL (14.0-18.0) L Hematocrit 39.8 % (42-54) L Mean Corpuscular Volume 84.1 fL (79-99) Mean Corpuscular Hemoglobin 28.3 pg (27.0-33.0) Mean Corpuscular Hemoglobin Concent 33.7 g/dL (32.0-36.0) Red Cell Distribution Width 13.2 % (11.0-15.5) Platelet Count 307 K/uL (130-400) Mean Platelet Volume 11.4 fL (7.5-10.5) H Immature Granulocyte % (Auto) 0.5 % (0-1) Neutrophils (%) (Auto) 72.0 % (40.0-77.0) Lymphocytes (%) (Auto) 19.9 % (21.0-51.0) L Monocytes (%) (Auto) 4.9 % (3.0-13.0) Eosinophils (%) (Auto) 1.9 % (0.0-8.0) Basophils (%) (Auto) 0.8 % (0.0-5.0) Neutrophils # (Auto) 9.4 K/uL (1.8-7.7) H Lymphocytes # (Auto) 2.6 K/uL (1.0-4.8) Monocytes # (Auto) 0.6 K/uL (0.1-1.0) Eosinophils # (Auto) 0.25 K/uL (0.00-0.70) Basophils # (Auto) 0.10 K/uL (0.00-0.20) Absolute Immature Granulocyte (auto 0.07 K/uL (0-1) Nucleated Red Blood Cells 0.0 % (0.0-0.19) Sodium Level 136 mmol/L (136-145) Potassium Level 4.6 mmol/L (3.5-5.1) Chloride Level 100 mmol/L (101-111) L Carbon Dioxide Level 31 mmol/L (21-32) Blood Urea Nitrogen 16 mg/dL (7-18) Creatinine 1.1 mg/dL (0.5-1.3) Glomerular Filtration Rate Calc 81 mL/min (>90) Random Glucose 427 mg/dL (70-105) *H Total Calcium 8.7 mg/dL (8.5-10.1) Labs Reviewed?: Yes ED Course ED Course Orders Procedure Category Date Status Time Cbc With Differential LAB 09/30/24 Complete 13:48 Basic Metabolic Panel LAB 09/30/24 Complete 13:48 0.9%Nacl 1000ml (Ns PHA 09/30/24 In Process 1000ml) 15:10 Insulin Regular, PHA 09/30/24 Complete Human 3ml (Humulin R 15:10 Urinalysis Profile LAB 09/30/24 Logged 15:51 Current Medications Medications (Trade) Dose Ordered Sig/Shiva Route PRN Reason Start Time Stop Time Status Last Admin Dose Admin Insulin Human Regular (humuLIN R 100 UNIT/ML 3ML) 8 unit ONCE STAT IV 09/30/24 15:10 09/30/24 15:13 DC Sodium Chloride 1,000 ml @ 1,000 mls/hr Q1H STAT IV 09/30/24 15:10 09/30/24 16:09 Vital Signs Date Time Temp Pulse Resp B/P (MAP) Pulse Ox O2 Delivery O2 Flow Rate FiO2 09/30/24 13:00 98.4 69 16 152/72 100 Room Air Medical Decision Making MDM 54 y/o male witih history of HTN, DM min in it was complaints of diarrhea has been going on for two months. Patient was seen earlier this month for same complaint. Denies any blood in his stool denies any fever nausea or vomiting. Patient was not lobby due to no rooms in the emergency room, was called multiple times by nurse, tech and myself no answer. DX & DISP Disposition: Discharge Departure Impression: Primary Impression: Type 2 diabetes mellitus with hyperglycemia Additional Impression: Eloped from emergency department Condition: Stable Referrals: ELAN THOMAS MD (PCP) Time of Disposition: 15:53 I have reviewed the case, and I agree with, Diagnosis and Plan MAHAMED GARCES NP Sep 30, 2024 15:59
== END 2024-09-30 15:55 | disposition left against medical advice (07) ==
LOC: EDH 12:58
DX: E11.65 Type 2 diabetes mellitus with hyperglycemia (principal); E78.00 Pure hypercholesterolemia, unspecified; I10 Essential (primary) hypertension; Z79.02 Long term (current) use of antithrombotics/antiplatelets; Z79.4 Long term (current) use of insulin; Z79.82 Long term (current) use of aspirin; Z79.899 Other long term (current) drug therapy; Z95.5 Presence of coronary angioplasty implant and graft
CPT/HCPCS: 36415; 80048; 85025; 99283

== ENCOUNTER 2024-10-23 19:33 | Inpatient (IN) | payer OTHER ==
[~2024-10-23] VITALS: Ht 160 cm; Wt 81.2 kg
[2024-10-23] MEDS: IpraTROPium/alBUTERol SULFATE 3 ML SOLUTION IH ONE (20:26)
[2024-10-23 20:27] VITALS: PULSE 77; RESP 22
--- NOTE | 2024-10-23 20:38 | HMCIMG ---
INDICATION: sob TECHNIQUE: CHEST 1VW COMPARISON: 09/22/2024 FINDINGS AND IMPRESSION: Prominent bilateral interstitial markings which may represent bronchitis or vascular congestion in the proper clinical setting. Cardiac silhouette is within normal limits. Mild degenerative changes of the spine. The visualized upper abdomen appears unremarkable.
[2024-10-23 20:40] LABS: BASOPHILS # (AUTO) 0.11 K/uL (0.00-0.20); BASOPHILS % (AUTO) 0.9 % (0.0-5.0); EOSINOPHILS # (AUTO) 0.09 K/uL (0.00-0.70); EOSINOPHILS % (AUTO) 0.7 % (0.0-8.0); HEMATOCRIT 34.7 % (42-54); IMMATURE GRANULOCYTE ABSOLUTE 0.05 K/uL (0-1); LYMPHOCYTES # (AUTO) 2.6 K/uL (1.0-4.8); LYMPHOCYTES % (AUTO) 21.6 % (21.0-51.0); MEAN CORPUSCULAR HEMOGLOBIN 28.1 pg (27.0-33.0); MEAN CORPUSCULAR HGB CONC 32.9 g/dL (32.0-36.0); MEAN CORPUSCULAR VOLUME 85.5 fL (79-99); MONOCYTES # (AUTO) 0.9 K/uL (0.1-1.0); MONOCYTES % (AUTO) 7.2 % (3.0-13.0); NEUTROPHILS # (AUTO) 8.3 K/uL (1.8-7.7); NEUTROPHILS % (AUTO) 69.2 % (40.0-77.0); PLATELET COUNT (AUTO) 321 K/uL (130-400); RED BLOOD CELL COUNT(AUTO) 4.06 MIL/uL (4.50-6.20); RED CELL DISTRIBUTION WIDTH 13.4 % (11.0-15.5)
[2024-10-23 20:58] LABS: CREATININE 1.7 mg/dL (0.5-1.3); MAGNESIUM 1.9 mg/dL (1.80-2.40); POTASSIUM 3.8 mmol/L (3.5-5.1)
[2024-10-23 21:00] LABS: B-TYPE NATRIURETIC PEPTIDE 23 pg/mL (0-100)
[2024-10-23 21:09] LABS: SARS-CoV-2, RNA, NAAT NEGATIVE SARS CoV-2 (NEGATIVE)
[2024-10-23 21:15] LABS: INFLUENZA TYPE A Negative For Type A (NEGATIVE); INFLUENZA TYPE B Negative For Type B (NEGATIVE)
[2024-10-23] MEDS: 0.9%NACL 1000ML 1,000 ML IV ONE (21:50)
[2024-10-23] MEDS: INSULIN humuLIN R 100 UNIT/ML 3ML SQ ONE (21:56)
--- NOTE | 2024-10-23 21:57 | ERN ---
General Chief Complaint: Weakness Stated Complaint: GENERALIZED WEAKNESS, SOB Time Seen by MD: 19:40 Time Seen by Midlevel: 19:40 Source: patient, EMS History of Present Illness Initial Comments The patient is a 54-year-old male with a past medical history of type 2 diabetes, hypertension, hyperlipidemia, presenting to the emergency department with a an increase in shortness of breath. Patient states he has been having weakness to bilateral lower extremities. He has been having difficulty taking a deep breath and feels like he was breathing very heavily. Per EMS the patient was found on the floor in his house status post alleged syncopal episode. Allergies: Coded Allergies: No Known Drug Allergies (Unverified Allergy, Unknown, 06/04/21) Home Meds Active Scripts Doxycycline Hyclate (Doxycycline Hyclate) 100 Mg Tablet, 100 MG PO DAILYBKFST for 7 Days, #8 TAB Prov:LUH RAMACHANDRAN MD 06/16/24 Metoprolol Tartrate (Lopressor) 25 Mg Tab, 25 MG PO BID, #60 TAB 0 Refills Prov:LORELEI BRASEHR MD 05/31/24 Losartan Potassium (Cozaar) 50 Mg Tablet, 50 MG PO BID, #60 TAB 0 Refills Prov:LORELEI BRASHER MD 05/31/24 Clopidogrel Bisulfate (Plavix) 75 Mg Tablet, 75 MG PO DAILY, #30 TAB 0 Refills Prov:LORELEI BRASHER MD 05/31/24 Insulin Lispro (Humalog) 100 Unit/Ml Insuln.pen, 8 UNITS SQ TIDAC, #3 SYRINGE 0 Refills Prov:KARELY LANDON 08/06/23 Insulin Glargine,Hum.rec.anlog (Lantus Solostar) 100 Unit/Ml (3 Ml) Insuln.pen, 25 UNIT SQ DAILY, #2 SYRINGE 0 Refills Prov:KARELY LANDONP 08/06/23 Atorvastatin Calcium (Atorvastatin Calcium) 40 Mg Tablet, 40 MG PO HS, #60 TAB 0 Refills Prov:KARELY LANDONP 08/06/23 Aspirin (ASPIRIN 81 MG ECTAB) 81 Mg Ectab, 81 MG PO DAILY, #60 TAB.EC 0 Refills Prov:KARELY LANDON 12/20/23 Past Medical History Past Medical History: Diabetes-Type II, High Cholesterol, Hypertension, Renal Disese Medical History Other: PVD Past Surgical History: Other Surgical History Other: LT TMA, CARDIAC STENTS, LT ARM PORT FOR ABX Family History Family History: Negative Social History Social History: Negative ROS Dictation CONSTITUTIONAL: Negative except for HPI HEAD/FACE: Negative except for HPI EENT: Negative except for HPI RESPIRATORY: Negative except for HPI GASTROINTESTINAL/ABDOMINAL: Negative except for HPI GENITOURINARY: Negative except for HPI MUSCULOSKELETAL: Negative except for HPI INTEGUMENTARY: Negative except for HPI NEUROLOGICAL/PSYCH: Negative except for HPI HEMATOLOGIC/LYMPHATIC: Negative except for HPI All Systems Negative, Except as noted above. 13 point review of systems assessed and all negative except for above. Physical Exam Physical Exam Dictation Vital Signs reviewed General Appearance: Alert, oriented x 3, no acute distress, well developed, nourished. Head and Face: non-traumatic. Eyes: PERRL, pink conjunctivas, eyelid no trauma, anterior chamber with arcus se nilis. Ears: Pinnas intact and no signs of trauma or erythema ear canals clear and no discharge TM no erythema Nose: No discharge, no bleeding. Oropharynx: Mouth normal, tongue pink, pharynx clear,no erythema, tonsils no exudates, no abscesses noted, mucous membrane moist Neck: Supple, non-tender, no thyromegaly, no masses, no JVD, no bruits Breast:Deferred Chest:No tenderness, no crepitus, no paradoxical movement, no retractions Lungs:Clear, well-ventilated, symmetric, no rales, no wheezing, no rhonchi, no stridor, good breath sounds bilaterally Heart: Regular rate, regular rhythm, no murmur, no gallops Vascular: no peripheral edema, Abdomen: Soft, positive bowel sounds, nondistended, no guarding, nontender, no rebound, no masses no hepatomegaly, no splenomegaly, no Marx's sign, no hernias. Rectal: Deferred Genital: Deferred Neurological: Normal speech, motor function intact, sensory function intact Musculoskeletal: Neck nontender, full range of motion, back nontender, full range of motion, Extremities: nontender, full range of motion Skin: Color pink, dry, no turgor, no rash, no lacerations, no abrasions, no contusions. Lymphatic: Deferred Results Laboratory and Microbiology Lab and Micro Result Laboratory Tests Test 10/23/24 20:00 10/23/24 20:06 10/23/24 21:46 White Blood Count 12.0 K/uL (4.8-10.8) H Red Blood Count 4.06 MIL/uL (4.50-6.20) L Hemoglobin 11.4 g/dL (14.0-18.0) L Hematocrit 34.7 % (42-54) L Mean Corpuscular Volume 85.5 fL (79-99) Mean Corpuscular Hemoglobin 28.1 pg (27.0-33.0) Mean Corpuscular Hemoglobin Concent 32.9 g/dL (32.0-36.0) Red Cell Distribution Width 13.4 % (11.0-15.5) Platelet Count 321 K/uL (130-400) Mean Platelet Volume 11.1 fL (7.5-10.5) H Immature Granulocyte % (Auto) 0.4 % (0-1) Neutrophils (%) (Auto) 69.2 % (40.0-77.0) Lymphocytes (%) (Auto) 21.6 % (21.0-51.0) Monocytes (%) (Auto) 7.2 % (3.0-13.0) Eosinophils (%) (Auto) 0.7 % (0.0-8.0) Basophils (%) (Auto) 0.9 % (0.0-5.0) Neutrophils # (Auto) 8.3 K/uL (1.8-7.7) H Lymphocytes # (Auto) 2.6 K/uL (1.0-4.8) Monocytes # (Auto) 0.9 K/uL (0.1-1.0) Eosinophils # (Auto) 0.09 K/uL (0.00-0.70) Basophils # (Auto) 0.11 K/uL (0.00-0.20) Absolute Immature Granulocyte (auto 0.05 K/uL (0-1) Nucleated Red Blood Cells 0.0 % (0.0-0.19) Sodium Level 133 mmol/L (136-145) L Potassium Level 3.8 mmol/L (3.5-5.1) Chloride Level 99 mmol/L (101-111) L Carbon Dioxide Level 30 mmol/L (21-32) Blood Urea Nitrogen 22 mg/dL (7-18) H Creatinine 1.7 mg/dL (0.5-1.3) H Glomerular Filtration Rate Calc 48 mL/min (>90) Random Glucose 403 mg/dL (70-105) *H Total Calcium 8.3 mg/dL (8.5-10.1) L Magnesium Level 1.90 mg/dL (1.80-2.40) Total Creatine Kinase 65 U/L (21-232) Troponin I High Sensitivity 13 ng/L (4-75) B-Type Natriuretic Peptide 23 pg/mL (0-100) Influenza Type A Antigen Negative For Type A Influenza Type B Antigen Negative For Type B SARS-CoV-2, RNA, NAAT NEGATIVE SARS CoV-2 Whole Blood Ketones Quantitative 0.2 mmol/L (0.0-0.6) Labs Reviewed?: Yes MDM MDM: Differential diagnosis: COPD exacerbation, pulmonary edema, fluid overload, pneumonia, dehydration Rationale: Tests considered and ordered secondary to shared decision making include: Previous outside records reviewed: Old ER visits. Risk of complication and/or morbidity or mortality of patient management: None Medications-Per medication reconciliation Need for hospitalization: Patient does meet criteria for hospitalization. Need for emergency major/minor surgery: No There are no social concerns with this patient. Prescription drug management Prescriptions will include symptomatic care Patient's prior external medical records from other ER visits were reviewed by me as indicated. Prior testing and results from previous visits were reviewed. Prior tests were taken into account with medical decision making and resource utilization, independent historian/historians were used to obtain complete medical history. I independently interpreted the test that were performed, results were reviewed by me and considered findings on radiology if ordered. Medical management and examination interpretation discussions were had by me with other qualified healthcare professionals as indicated for the patient's care. ED Course Orders Procedure Category Date Status Time 12 Lead Ekg Tracing- EKG 10/23/24 Logged Technical 19:53 Cbc With Differential LAB 10/23/24 Complete 19:53 Basic Metabolic Panel LAB 10/23/24 Complete 19:53 B-Type Natriuretic LAB 10/23/24 Complete Peptide 19:53 Creatine Kinase, Total LAB 10/23/24 Complete 19:53 Magnesium LAB 10/23/24 Complete 19:53 Troponin I High LAB 10/23/24 Complete Sensitivity 19:53 Chest 1vw RAD 10/23/24 Resulted 19:53 Urinalysis Profile LAB 10/23/24 Complete 19:53 Drug Screen Urine LAB 10/23/24 Complete 19:53 Covid Rna Naat LAB 10/23/24 Complete 19:53 Influenza Type A & B, LAB 10/23/24 Complete Rapid 19:53 Ipratropium/Albuterol PHA 10/23/24 Complete Neb (Duoneb) 20:00 0.9%Nacl 1000ml (Ns PHA 10/23/24 Complete 1000ml) 22:00 Insulin Regular, PHA 10/23/24 Complete Human 3ml (Humulin R 22:00 Ketone Blood LAB 10/23/24 Complete Quantitative 21:37 Current Medications Medications (Trade) Dose Ordered Sig/Shiva Route PRN Reason Start Time Stop Time Status Last Admin Dose Admin Albuterol (DUOneb) 1 UDVIAL ONCE ONCE IH 10/23/24 20:00 10/23/24 20:01 DC 10/23/24 20:26 Vital Signs Date Time Temp Pulse Resp B/P (MAP) Pulse Ox O2 Delivery O2 Flow Rate FiO2 10/23/24 20:58 98.1 78 19 102/62 95 Room Air* 0 21 10/23/24 20:27 77 22 10/23/24 19:46 98.6 81 24 128/76 94 Room Air [address] [address] IMAGING REPORT Signed PATIENT: SANDY GRANT MR#: [id number] : 1970 SEX: M AGE: 54 LOCATION: ED ORDER 55 STATUS: REG ER REPORT#: [id number] SERVICE 52 REASON: sob ORDERING PHYSICIAN: PADMINI BERGMAN PROCEDURE: CXR1VW - CHEST 1VW INDICATION: sob TECHNIQUE: CHEST 1VW COMPARISON: 09/22/2024 FINDINGS AND IMPRESSION: Prominent bilateral interstitial markings which may represent bronchitis or vascular congestion in the proper clinical setting. Cardiac silhouette is within normal limits. Mild degenerative changes of the spine. The visualized upper abdomen appears unremarkable. DICTATED BY: KRISTEN ABRAMS MD DATE: 10/23/242034 ELECTRONICALLY SIGNED BY: KRISTEN ABRAMS MD DATE: 10/23/242037 DX & DISP Disposition: Inpatient Decision to Admit Date: Oct 24, 2024 Departure Impression: Primary Impression: Shortness of breath Additional Impressions: Type 2 diabetes mellitus with hyperglycemia, Leukocytosis, OLENA (acute kidney injury), Cocaine abuse Condition: Stable Referrals: ELAN THOMAS MD (PCP) I have reviewed the case, and I agree with, Diagnosis and Plan I performed the substantive portion of the visit. I have reviewed and personally made and approve the management plan that is documented in the note by myself or the SHEA. I acknowledge for responsibility for the patient's management plan. PADMINI BERGMAN Oct 23, 2024 21:57
--- NOTE | 2024-10-23 22:05 | HP ---
[facility] HISTORY AND PHYSICAL Date of Service: Oct 23, 2024 Time of Service: 22:05 ELAN THOMAS MD (PCP) Attending/supervising physicians: Dr. Wise, Dr. Suzanne Bartlett, and Dr. Lamb HISTORY OF PRESENT ILLNESS: Mr. Mcallister is a 54-year-old male with a past medical history of type 2 diabetes, hypertension, hyperlipidemia, renal disease, PVD, CAD s/p cardiac stents who presented to the emergency department via EMS for evaluation of worsening shortness of breath. Patient stated he has been having weakness to bilateral lower extremities. He has been having difficulty taking a deep breath and feels like he was breathing very heavily. Per EMS the patient was found on the floor in his house status post alleged syncopal episode. Labs: BNP and troponin WNL. Glucose 403. Chest x-ray: Prominent bilateral interstitial markings which may represent bronchitis or vascular congestion in the proper clinical setting. Cardiac silhouette is within normal limits. Mild degenerative changes of the spine. The visualized upper abdomen appears unremarkable. In ED the patient received DuoNeb treatment, NS1 L bolus, 5 units of insulin human regular. ED provider request patient be admitted with the diagnosis of shortness of breath, type 2 diabetes mellitus with hyperglycemia, leukocytosis, OLENA, and cocaine abuse. I assessed the patient in ED. I assessed the patient at bedside. The patient appeared comfortable, in no distress. Breathing was even, unlabored. V/S on arrival O2 sats of 94%, respirations pulse 81 bpm, 128/76. During my assessment oxygen levels were 97%-98% on room air, breathing even and unlabored. The patient is a poor historian. I informed the patient of labs, diagnostics, and plan of care. Patient verbalized understanding and is in agreement with plan. Plan and assessment as listed below. REVIEW OF SYSTEMS 12-point ROS reviewed with patient. All pertinent positives mentioned above. Otherwise negative, noncontributory, or non-pertinent. PAST MEDICAL HISTORY: As mentioned above PAST SURGICAL HISTORY: Left TMA, carotid stents, left arm port a cath PAST SOCIAL HISTORY: Patient denied: Alcohol, tobacco, illicit drug use. FAMILY HISTORY: Negative Coded Allergies: No Known Drug Allergies (Unverified Allergy, Unknown, 06/04/21) PHYSICAL EXAM GENERAL APPEARANCE: The patient is awake, alert, and oriented, in no acute cardiopulmonary distress. NEUROLOGICAL: Cranial nerves II-XII grossly intact. Motor is 5/5 in bilateral upper and lower extremities proximal to distal. No sensory deficits. HEENT: Face is symmetric. Pupils are equal and reactive. Extraocular movements are intact. NECK: Supple. No JVD. No thyromegaly. No submental, submandibular, pre- /postauricular, occipital or supraclavicular lymphadenopathy. CHEST: Normal chest expansion. No Telemetry. LUNGS: Absence of any rales, rhonchi or any wheezing. CARDIOVASCULAR: Regular. S1 and S2 normal. No appreciable rubs, murmurs or gallops. ABDOMEN: Soft, nontender, and nondistended. There is no rebound, voluntary guarding, or rigidity. : Deferred. No Chong. EXTREMITIES: Non-edematous and not cyanotic. No clubbing. Good capillary refill. Left TMA. SKIN: No skin breakdown. Vital Sign (Last 24 Hours) 10/23/24 20:58 Temp 98.1 Pulse 78 Resp 19 B/P (MAP) 102/62 Pulse Ox 95 O2 Delivery Room Air* O2 Flow Rate 0 FiO2 21 LABS: Laboratory: Test 10/23/24 21:46 10/23/24 20:06 10/23/24 20:00 Range/Units Whole Blood Ketones Quantitative 0.2 0.0-0.6 mmol/L Influenza Type A Antigen Negative For Type A NEGATIVE Influenza Type B Antigen Negative For Type B NEGATIVE SARS-CoV-2, RNA, NAAT NEGATIVE SARS CoV-2 NEGATIVE White Blood Count 12.0 H 4.8-10.8 K/uL Red Blood Count 4.06 L 4.50-6.20 MIL/uL Hemoglobin 11.4 L 14.0-18.0 g/dL Hematocrit 34.7 L 42-54 % Mean Corpuscular Volume 85.5 79-99 fL Mean Corpuscular Hemoglobin 28.1 27.0-33.0 pg Mean Corpuscular Hemoglobin Concent 32.9 32.0-36.0 g/dL Red Cell Distribution Width 13.4 11.0-15.5 % Platelet Count 321 130-400 K/uL Mean Platelet Volume 11.1 H 7.5-10.5 fL Immature Granulocyte % (Auto) 0.4 0-1 % Neutrophils (%) (Auto) 69.2 40.0-77.0 % Lymphocytes (%) (Auto) 21.6 21.0-51.0 % Monocytes (%) (Auto) 7.2 3.0-13.0 % Eosinophils (%) (Auto) 0.7 0.0-8.0 % Basophils (%) (Auto) 0.9 0.0-5.0 % Neutrophils # (Auto) 8.3 H 1.8-7.7 K/uL Lymphocytes # (Auto) 2.6 1.0-4.8 K/uL Monocytes # (Auto) 0.9 0.1-1.0 K/uL Eosinophils # (Auto) 0.09 0.00-0.70 K/uL Basophils # (Auto) 0.11 0.00-0.20 K/uL Absolute Immature Granulocyte (auto 0.05 0-1 K/uL Nucleated Red Blood Cells 0.0 0.0-0.19 % Sodium Level 133 L 136-145 mmol/L Potassium Level 3.8 3.5-5.1 mmol/L Chloride Level 99 L 101-111 mmol/L Carbon Dioxide Level 30 21-32 mmol/L Blood Urea Nitrogen 22 H 7-18 mg/dL Creatinine 1.7 H 0.5-1.3 mg/dL Glomerular Filtration Rate Calc 48 >90 mL/min Random Glucose 403 *H 70-105 mg/dL Total Calcium 8.3 L 8.5-10.1 mg/dL Magnesium Level 1.90 1.80-2.40 mg/dL Total Creatine Kinase 65 21-232 U/L Troponin I High Sensitivity 13 4-75 ng/L B-Type Natriuretic Peptide 23 0-100 pg/mL DIAGNOSTICS / RADIOLOGY: [ ] ASSESSMENT: Prominent bilateral interstitial markings, bronchitis vs vascular congestion LVEF 35-40%, stage II diastolic dysfunction, per echo on 06/14/2024 Cardiac silhouette is within normal limits. Acute kidney injury, GFR 48 (prior GFR 81 on 07/30/2024) Acute on chronic kidney disease, POA Leukocytosis Electrolyte derangement (hyponatremia, hypochloremia, hypocalcemia, hypomagnesemia) Diabetes mellitus with hyperglycemia Anemia chronic disease Cocaine abuse Proteinuria Glucosuria PLAN: Admit to medical floor with telemetry monitoring. Monitor respiratory status closely. Continue oxygen therapy as needed. Titrate oxygen p.r.n. to keep SpO2 equal to greater than 92%. Albuterol and Atrovent scheduled. Pulmicort nebulizer treatment b.i.d.. RT to provide IS and education on use. Robitussin DM as needed for cough. Start doxycycline 100 mg IV b.i.d.. EKGs series. 2D echo in a.m.. Nitroglycerin as needed for chest pain. Aspirin 81 mg p.o. daily. Resume home medication Aspirin and Plavix. Reconcile rest of home medications once provided. Atorvastatin 40 mg p.o. daily. Strict I&Os. Fluid restriction a 1200 mL in24 hours. P.r.n. medications for: Pain management, nausea, vomiting, hypertension, const ipation. Glucometer checks a.c. and HS with insulin high sliding scale coverage as needed per protocol. Blood pressure checks every4 hours and as needed. Monitor renal and liver function. Monitor electrolytes and treat accordingly. A.m. labs: CBC, BNP, Mag, phos, TSH, A1c, D-DIMER. GI and DVT prophylaxis. ADVANCED CARE PLANNING 1. Which of the following were discussed? Hospice Care - No Therapeutic options - Yes Advance Directives - Yes Other discussions - 2. Discussed with who? Patient 3. Voluntary nature of this service was explained to the patient? Yes 4. Amount of time spent - ___ over 35 minutes ____ 5. Reviewed by Physician? (if this service was performed by NPP) Yes ATTESTATION BY PHYSICIAN I have seen and examined the patient. I reviewed the documentation, medical decision-making, and treatment plan as noted by the advanced practice provider above. I agree with the findings and plan of care. ELVA ROMAN [facility] Oct 23, 2024 22:05
--- NOTE | 2024-10-23 22:42 | NUR ---
BLADDER SCAN SHOWED [facility]. [facility] AWARE.
[2024-10-24] VITALS (11 sets, daily range): BP systolic 107–152; BP diastolic 54–71; PULSE 55–66; RESP 13–18; TEMP 97.7–98; O2SAT 96–100
[2024-10-24] MEDS ORDERED: LAbetaLOL 20MG SYG IV PRN
[2024-10-24] MEDS ORDERED: LACTULOSE 20 GM/30 ML UDCUP PO PRN
[2024-10-24] MEDS ORDERED: ondanSETRON 4MG INJ IVP PRN
[2024-10-24] MEDS ORDERED: doCUSate SODIUM 100 MG CAP PO PRN
[2024-10-24] MEDS ORDERED: acetaMINOPHEN 650 MG SUPPOSITORY RC PRN
[2024-10-24] MEDS ORDERED: TEMAZepam 15 MG CAPSULE PO PRN
[2024-10-24] MEDS: IpraTROPium 0.5 MG/2.5 ML INH IH SCH (00:22)
[2024-10-24 01:00] LABS: ADD UA MICROSCOPIC YES; APPEARANCE,URINE CLEAR (CLEAR); BILIRUBIN,URINE NEGATIVE (NEGATIVE); COLOR,URINE LIGHT-YELLOW (YELLOW); GLUCOSE, URINE (UA) >=1000 mg/dL (NEGATIVE); KETONES,URINE NEGATIVE (NEGATIVE); LEUKOCYTE ESTERASE ,URINE NEGATIVE Leu/uL (NEGATIVE); NITRATE,URINE NEGATIVE (NEGATIVE); OCCULT BLOOD,URINE SMALL (NEGATIVE); PROTEIN,URINE 300 mg/dL (NEGATIVE); UROBILINOGEN,URINE 0.2 mg/dL (0.2-1.0)
[2024-10-24 01:01] LABS: MUCUS,URINE RARE LPF (None Seen); SQUAMOUS EPITHELIAL CELL,UR RARE /HPF (0-2)
[2024-10-24 01:22] LABS: AMPHET/METH SCREEN,URINE NEGATIVE (NEGATIVE); BARBITURATE SCREEN, URINE NEGATIVE (NEGATIVE); BENZODIAZEPINES SCREEN,URINE NEGATIVE (NEGATIVE); CANNABINOID SCREEN,URINE NEGATIVE (NEGATIVE); COCAINE SCREEN,URINE POSITIVE (NEGATIVE); OPIATE SCREEN,URINE NEGATIVE (NEGATIVE); PHENCYCLIDINE SCREEN,URINE NEGATIVE (NEGATIVE)
[2024-10-24] MEDS: DOXYCYCLINE 100MG+NS 250ML IV SCH (01:39)
[2024-10-24] MEDS: INSULIN humuLIN R 100 UNIT/ML 3ML SQ SCH (06:07)
[2024-10-24 07:38] LABS: HEMATOCRIT 34.5 % (42-54); MEAN CORPUSCULAR HEMOGLOBIN 27.7 pg (27.0-33.0); MEAN CORPUSCULAR HGB CONC 32.5 g/dL (32.0-36.0); MEAN CORPUSCULAR VOLUME 85.2 fL (79-99); RED BLOOD CELL COUNT(AUTO) 4.05 MIL/uL (4.50-6.20); RED CELL DISTRIBUTION WIDTH 13.5 % (11.0-15.5); WHITE BLOOD COUNT (AUTO) 8.8 K/uL (4.8-10.8)
[2024-10-24 08:08] LABS: CREATININE 1.4 mg/dL (0.5-1.3); POTASSIUM 3.8 mmol/L (3.5-5.1); THYROID STIMULATING HORMONE 1.93 uIU/mL (0.36-3.74)
[2024-10-24] MEDS: FAMOTIDINE 20MG TAB PO SCH (09:28)
[2024-10-24] MEDS: ASPIRIN 81MG CHEW TAB PO SCH (09:28)
[2024-10-24] MEDS ORDERED: PoTASSium chloRIDE 10MEQ/100ML 100 ML IV PRN (10:30)
[2024-10-24] MEDS ORDERED: DEXTROSE 50%-WATER 50 ML DISP.SYRIN IV PRN (10:30)
[2024-10-24] MEDS ORDERED: GLUCAGON 1MG KIT 1 MG ML IM PRN (10:30)
[2024-10-24] MEDS ORDERED: MAGNESIUM 2GM PREMIX 50ML 50 ML IV PRN (10:30)
[2024-10-24] MEDS ORDERED: PoTASSium chloRIDE 20MEQ ER 20 MEQ ERTAB PO PRN (10:30)
[2024-10-24] MEDS ORDERED: PoTASSium chl 10% ELIXIR 20MEQ 20 MEQ/15 ML UDCUP PO PRN (10:30)
--- NOTE | 2024-10-24 12:59 | EKG ---
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
--- NOTE | 2024-10-24 12:59 | EKG ---
[facility] [place], [place] Test Date: 2024-10-23 Test Time: 20:17:08 Pat Name: SANDY GRANT Department: EDHIP Room: ED 15 Gender: M Alteration Hand: [id number] : 1970 Requested By: PADMINI BERGMAN Order Number: [id number] Reading MD: Gorge Motley Measurements Intervals [place] Rate: 73 P: 61 MT: 147 QRS: -2 QRSD: 86 T: 58 QT: 412 QTc: 455 Interpretive Statements Sinus rhythm Left ventricular hypertrophy ST elev, probable normal early repol pattern Compared to ECG 06/14/2024 09:15:48 ST (T wave) deviation now present Sinus bradycardia no longer present Electronically Signed On 10-24-2024 13:40:05 CDT by Gorge Motley Please click the below link to view image of tracing.
[2024-10-24] MEDS: guaiFENesin SUGAR-FREE 100 MG/5 ML UDCUP PO ONE (13:18)
[2024-10-24] MEDS: metoPROLOL tartRATE 25 MG TAB PO SCH (13:18)
[2024-10-24] MEDS: cloPIDOgrel 75MG TAB PO SCH (13:19)
--- NOTE | 2024-10-24 15:03 | PN ---
[facility] PROGRESS NOTE Date of Service: Oct 24, 2024 Time of Service: 15:02 SUBJECTIVE: [ ] 10/24/24 patient was seen and examined in the holding. Case discussed with the RN. He is doing better. His hyponatremia has resolved. His renal function has improved to creatinine of 1.4 His glycemic control is also improving. Continue current management REVIEW OF SYSTEMS 12-point ROS reviewed with patient. All pertinent positives mentioned above. Otherwise negative, noncontributory, or non-pertinent. PHYSICAL EXAM GENERAL APPEARANCE: The patient is awake, alert, and oriented, in no acute cardiopulmonary distress. NEUROLOGICAL: Cranial nerves II-XII grossly intact. Motor is 5/5 in bilateral upper and lower extremities proximal to distal. No sensory deficits. HEENT: Face is symmetric. Pupils are equal and reactive. Extraocular movements are intact. NECK: Supple. No JVD. No thyromegaly. No submental, submandibular, pre- /postauricular, occipital or supraclavicular lymphadenopathy. CHEST: Normal chest expansion. No Telemetry. LUNGS: Absence of any rales, rhonchi or any wheezing. CARDIOVASCULAR: Regular. S1 and S2 normal. No appreciable rubs, murmurs or gallops. ABDOMEN: Soft, nontender, and nondistended. There is no rebound, voluntary guarding, or rigidity. : Deferred. No Chong. EXTREMITIES: Non-edematous and not cyanotic. No clubbing. Good capillary refill. Left TMA. SKIN: No skin breakdown. Vital Signs (last 8hr) Date Time Temp Pulse Resp B/P (MAP) Pulse Ox O2 Delivery O2 Flow Rate FiO2 10/24/24 11:05 63 18 10/24/24 08:18 98.2 67 16 140/76 96 Room Air* 0 21 LABS: Laboratory: Test 10/24/24 07:30 10/24/24 05:31 10/24/24 00:43 10/23/24 21:46 Range/Units White Blood Count 8.8 # 4.8-10.8 K/uL Red Blood Count 4.05 L 4.50-6.20 MIL/uL Hemoglobin 11.2 L 14.0-18.0 g/dL Hematocrit 34.5 L 42-54 % Mean Corpuscular Volume 85.2 79-99 fL Mean Corpuscular Hemoglobin 27.7 27.0-33.0 pg Mean Corpuscular Hemoglobin Concent 32.5 32.0-36.0 g/dL Red Cell Distribution Width 13.5 11.0-15.5 % Platelet Count 294 130-400 K/uL Mean Platelet Volume 10.3 7.5-10.5 fL Nucleated Red Blood Cells 0.0 0.0-0.19 % D-Dimer Quantitative (PE/DVT) 469 0-500 ng/mL Sodium Level 138 136-145 mmol/L Potassium Level 3.8 3.5-5.1 mmol/L Chloride Level 104 101-111 mmol/L Carbon Dioxide Level 26 21-32 mmol/L Blood Urea Nitrogen 21 H 7-18 mg/dL Creatinine 1.4 H 0.5-1.3 mg/dL Glomerular Filtration Rate Calc 60 >90 mL/min Random Glucose 179 #H 70-105 mg/dL Total Calcium 8.1 L 8.5-10.1 mg/dL Phosphorus Level 5.0 H 2.5-4.9 mg/dL Magnesium Level 2.00 1.80-2.40 mg/dL Thyroid Stimulating Hormone (TSH) 1.93 # 0.36-3.74 uIU/mL Whole Blood Glucose 172 H 70-110 MG/DL Urine Color LIGHT-YELLOW YELLOW Urine Appearance CLEAR CLEAR Urine pH 6.0 5.0-8.0 Urine Specific [place] 1.017 1.001-1.031 Urine Protein 300 H NEGATIVE mg/dL Urine Glucose (UA) >=1000 H NEGATIVE mg/dL Urine Ketones NEGATIVE NEGATIVE mg/dL Urine Occult Blood SMALL H NEGATIVE Urine Nitrate NEGATIVE NEGATIVE Urine Bilirubin NEGATIVE NEGATIVE mg/dL Urine Urobilinogen 0.2 0.2-1.0 mg/dL Urine Leukocyte Esterase NEGATIVE NEGATIVE Lise/uL Urine RBC 2-5 H 0-1 /HPF Urine WBC 2-5 H 0-1 /HPF Urine Squamous Epithelial Cells RARE 0-2 /HPF Urine Bacteria None None Seen /HPF Urine Hyaline Casts 2-5 H 0-1 /LPF /LPF Urine Opiates Screen NEGATIVE NEGATIVE Urine Barbiturates Screen NEGATIVE NEGATIVE Urine Phencyclidine Screen NEGATIVE NEGATIVE Urine Amphetamines Screen NEGATIVE NEGATIVE Urine Benzodiazepines Screen NEGATIVE NEGATIVE Urine Cocaine Screen POSITIVE H NEGATIVE Urine Marijuana (THC) Screen NEGATIVE NEGATIVE Whole Blood Ketones Quantitative 0.2 0.0-0.6 mmol/L Test 10/23/24 20:06 10/23/24 20:00 Range/Units Influenza Type A Antigen Negative For Type A NEGATIVE Influenza Type B Antigen Negative For Type B NEGATIVE SARS-CoV-2, RNA, NAAT NEGATIVE SARS CoV-2 NEGATIVE Immature Granulocyte % (Auto) 0.4 0-1 % Neutrophils (%) (Auto) 69.2 40.0-77.0 % Lymphocytes (%) (Auto) 21.6 21.0-51.0 % Monocytes (%) (Auto) 7.2 3.0-13.0 % Eosinophils (%) (Auto) 0.7 0.0-8.0 % Basophils (%) (Auto) 0.9 0.0-5.0 % Neutrophils # (Auto) 8.3 H 1.8-7.7 K/uL Lymphocytes # (Auto) 2.6 1.0-4.8 K/uL Monocytes # (Auto) 0.9 0.1-1.0 K/uL Eosinophils # (Auto) 0.09 0.00-0.70 K/uL Basophils # (Auto) 0.11 0.00-0.20 K/uL Absolute Immature Granulocyte (auto 0.05 0-1 K/uL Total Creatine Kinase 65 21-232 U/L Troponin I High Sensitivity 13 4-75 ng/L B-Type Natriuretic Peptide 23 0-100 pg/mL Current Medications Medications (Trade) Dose Ordered Sig/Shiva Route PRN Reason Start Time Stop Time Status Last Admin Dose Admin Acetaminophen (TYLenol 325MG TAB) 650 mg Q6H PRN PO FEVER/MILD PAIN LEVEL 1-3 10/24/24 00:00 11/23/24 00:00 Acetaminophen (TYLenol 650MG SUPPOSITORY) 650 mg Q6H PRN RC FEVER / MILD PAIN 1-3 IF NPO 10/24/24 00:00 11/23/24 00:00 Aspirin (Aspirin 81mg Chew Tab) 81 mg DAILY PO 10/24/24 09:00 11/23/24 08:59 10/24/24 09:28 81 MG Atorvastatin Calcium (LIPItor 40MG) 40 mg HS PO 10/24/24 21:00 11/23/24 20:59 Clopidogrel Bisulfate (plaVIX 75MG) 75 mg DAILY PO 10/24/24 11:00 11/23/24 10:59 10/24/24 13:19 75 MG Dextrose (D50w) 50 ml AD PRN IV HYPOGLYCEMIA PROTOCOL 10/24/24 10:30 11/23/24 10:29 Docusate Sodium (COLace 100MG CAP) 100 mg BID PRN PO c 10/24/24 00:00 11/23/24 00:00 Doxycycline Hyclate (Doxycycline 100mg+NS 250ml) 100 mg Q12H IV 10/24/24 00:00 11/03/24 00:00 10/24/24 13:15 100 MG Famotidine (Pepcid 20mg Tab) 20 mg DAILY PO 10/24/24 09:00 11/23/24 08:59 10/24/24 09:28 20 MG Glucagon (Glucagon 1mg Kit) 1 mg AD PRN IM HYPOGLYCEMIA PROTOCOL 10/24/24 10:30 11/23/24 10:29 Insulin Human Regular (humuLIN R 100 UNIT/ML 3ML) INSULIN SLIDING SCAL... ACHS SQ 10/24/24 07:30 11/23/24 07:29 10/24/24 06:07 4 UNIT Ipratropium [place] (AtrovENT UD) 0.5 mg [id number] IH 10/24/24 00:00 11/23/24 00:00 10/24/24 11:13 0.5 MG Labetalol HCl (TRANdate 20MG SYG) 10 mg Q2H PRN IV SBP GREATER THAN 160 10/24/24 00:00 11/23/24 00:00 Lactulose (Constulose 20gm/ 30ml Udcup) 20 gm Q6H PRN PO CONSTIPATION 10/24/24 00:00 11/23/24 00:00 Losartan Potassium (CozAAR 50 mg TAB) 50 mg BID PO 10/24/24 21:00 11/23/24 20:59 Magnesium Sulfate 50 ml @ 0 mls/hr PROTOCOL PRN IV MAGNESIUM PROTOCOL 10/24/24 10:30 11/23/24 10:29 Metoprolol Tartrate (loprESSOR) 25 mg BID PO 10/24/24 11:00 11/23/24 10:59 10/24/24 13:18 25 MG Ondansetron HCl (zoFRAN 4MG INJ) 4 mg Q6H PRN IVP NAUSEA/VOMITING 10/24/24 00:00 11/23/24 00:00 Potassium Chloride 100 ml @ 100 mls/hr AD PRN IV POTASSIUM PROTOCOL 10/24/24 10:30 11/23/24 10:29 Potassium Chloride (K-Dur/Klor-Con 20meq) 10 meq AD PRN PO POTASSIUM PROTOCOL 10/24/24 10:30 11/23/24 10:29 Potassium Chloride (KCl 10% Elixir 20meq/15ml) 10 meq AD PRN PO POTASSIUM PROTOCOL 10/24/24 10:30 11/23/24 10:29 Temazepam (restORIL 15 MG CAP) 15 mg HS PRN PO INSOMNIA/SLEEP 10/24/24 00:00 11/23/24 00:00 DIAGNOSTICS / RADIOLOGY: [ ] ASSESSMENT: Prominent bilateral interstitial markings, bronchitis vs vascular congestion LVEF 35-40%, stage II diastolic dysfunction, per echo on 06/14/2024 Cardiac silhouette is within normal limits. Acute kidney injury, GFR 48 (prior GFR 81 on 07/30/2024) Acute on chronic kidney disease, POA Leukocytosis Electrolyte derangement (hyponatremia, hypochloremia, hypocalcemia, hypomagnesemia) Diabetes mellitus with hyperglycemia Anemia chronic disease Cocaine abuse Proteinuria Glucosuria PLAN: Admit to medical floor with telemetry monitoring. Monitor respiratory status closely. Continue oxygen therapy as needed. Titrate oxygen p.r.n. to keep SpO2 equal to greater than 92%. Albuterol and Atrovent scheduled. Pulmicort nebulizer treatment b.i.d.. RT to provide IS and education on use. Robitussin DM as needed for cough. Start doxycycline 100 mg IV b.i.d.. EKGs series. 2D echo in a.m.. Nitroglycerin as needed for chest pain. Aspirin 81 mg p.o. daily. Resume home medication Aspirin and Plavix. Reconcile rest of home medications once provided. Atorvastatin 40 mg p.o. daily. Strict I&Os. Fluid restriction a 1200 mL in24 hours. P.r.n. medications for: Pain management, nausea, vomiting, hypertension, constipation. Glucometer checks a.c. and HS with insulin high sliding scale coverage as needed per protocol. Blood pressure checks every4 hours and as needed. Monitor renal and liver function. Monitor electrolytes and treat accordingly. A.m. labs: CBC, BNP, Mag, phos, TSH, A1c, D-DIMER. GI and DVT prophylaxis. YAZMIN RAMOS MD Oct 24, 2024 15:03
--- NOTE | 2024-10-24 15:41 | HMCIMG ---
US RENAL SONOGRAM HISTORY: Acute renal insufficiency COMPARISON: None TECHNIQUE: Renal and bladder ultrasound study was performed. FINDINGS: The right kidney measures 11.5 x 6.9 x 5.6 cm. The left kidney measures 11.2 x 6.3 x 4.2 cm. There is left lower pole renal cyst measuring 7 mm. No evidence of hydronephrosis is seen of either kidney. Both kidneys are seen. Bladder is moderately distended. IMPRESSION: 1. No hydronephrosis is seen. Left lower pole renal cyst measuring 7 mm.
--- NOTE | 2024-10-24 16:30 | NUR ---
DCP CM SPOKE TO PT, INITIAL ASSESSMENT DONE. PATIENT IS INDEPENDENT PRIOR TO ADMISSION, LIVE AT HOME ALONE. HAS A WHEELCHAIR. DENIES ANY OTHER EQUIPMENT/SERVICES. FEELS SAFE TO GO BACK HOME, [facility] NEED [facility] FOR TRANSPORT TO HOME. DCP HOME ONCE STABLE. CM TO CONTINUE TO FOLLOW UP. Addendum: 10/25/24 at 2000 by HETAL CAMPBELL LVN CM Amended: Links added.
[2024-10-24] MEDS: atorVAStatin 40 MG TABLET PO SCH (20:45)
[2024-10-24] MEDS: LoSARTan 50 MG TABLET PO SCH (20:45)
--- NOTE | 2024-10-24 21:25 | NUR ---
CALLED REPORT ROOM NOT READY ACCORDING TO [facility] FLOOR NURSE
[2024-10-25] VITALS (13 sets, daily range): BP systolic 125–162; BP diastolic 65–80; PULSE 55–87; RESP 16–21; TEMP 97.9–98.4; O2SAT 98–100
--- NOTE | 2024-10-25 07:28 | HMCSR ---
APPROVED REPORT EXAM: Two-dimensional and M-mode echocardiogram with Doppler and color Doppler. Study Details: CHF ,HTN , Diabts M INDICATION ICD: cardiac hx Dyspnea 2D Dimensions RVDd3.8 cmLVEF(%)27.6 (>50%)LVED Vol(simp.)175.8 mL IVSd1.0 (0.7-1.1cm)FS(%)13 %LVES Vol(simp.)117.0 mL LVDd5.9 (3.8-5.6cm)LA (2D)4.3 (1.6-4.0cm)LVEF(%, simp.)33 % PWd1.0 (0.7-1.1cm)Ao Root(2D)3.0 (2.0-3.7cm)LA ESV INDEX (4CH)48.00 mL/m2 IVSs1.0 cmLVOT diam2.1 (1.8-2.4cm)LA ESV INDEX (2CH)247.00 mL/m2 LVDs5.1 (2.5-4.0cm)IVC diam1.8 cmLA ESV INDEX (BP)245.00 mL/m2 PWs1.5 cm Deformation Strain Apical 414.2 % Apical 212.0 % Apical 314.0 % Global Tyhuvl89.3 % M-Mode Dimensions EPSS1.7 cm LA (MM)4.8 (1.6-4.0cm) Ao Root(MM)2.8 (2.0-3.7cm) Mitral Valve MV E Vmax81.3 cm/sDECEL Iarf883 ms MV A Vmax97.2 cm/sP 1/2 T80 ms E/A ratio0.8MVA (PHT)2.8 cm2 TDI E/E' Nxraht05.2 Pulmonary Valve PV Vmax1.4 m/s Left Ventricle The left ventricle is moderately dilated. Mild-moderate global hypokinesis noted Moderate concentric left ventricular hypertrophy. LVEF is 35-40%. Stage II, diastolic dysfunction. Right Ventricle The right ventricle is normal size. The right ventricular systolic function is normal. Atria The left atrium is mildly dilated. The interatrial septum is intact with no evidence for an atrial se ptal defect. The right atrium size is normal. Aortic Valve Aortic valve is trileaflet. No aortic regurgitation is present. There is no aortic valvular stenosis. Mitral Valve The mitral valve is mildly thickened. Mitral regurgitation is mild. There is no mitral valve stenosis . Tricuspid Valve The tricuspid valve is normal in structure. There is no tricuspid valve regurgitation noted. Pulmonic Valve Pulmonic valve is not well visualized. There is rivial pulmonic regurgitation. Great Vessels The aortic root is normal in size. The ascending aorta is normal in size. The IVC is normal in size a nd collapses >50% with inspiration. Pericardium no pericardial effusion. Conclusion LVEF is 35-40%. Moderate concentric left ventricular hypertrophy. Stage II, diastolic dysfunction. Mitral regurgitation is mild. no pericardial effusion. The aortic root is normal in size.
--- NOTE | 2024-10-25 21:15 | PN ---
[facility] PROGRESS NOTE Date of Service: Oct 25, 2024 Time of Service: 21:14 SUBJECTIVE: [ ] 10/24/24 patient was seen and examined in the holding. Case discussed with the RN. He is doing better. His hyponatremia has resolved. His renal function has improved to creatinine of 1.4 His glycemic control is also improving. Continue current management 10/25/24 patient was seen and examined in the holding. Case discussed with the RN. He denies n/v/f/c REVIEW OF SYSTEMS 12-point ROS reviewed with patient. All pertinent positives mentioned above. Otherwise negative, noncontributory, or non-pertinent. PHYSICAL EXAM GENERAL APPEARANCE: The patient is awake, alert, and oriented, in no acute cardiopulmonary distress. NEUROLOGICAL: Cranial nerves II-XII grossly intact. Motor is 5/5 in bilateral upper and lower extremities proximal to distal. No sensory deficits. HEENT: Face is symmetric. Pupils are equal and reactive. Extraocular movements are intact. NECK: Supple. No JVD. No thyromegaly. No submental, submandibular, pre- /postauricular, occipital or supraclavicular lymphadenopathy. CHEST: Normal chest expansion. No Telemetry. LUNGS: Absence of any rales, rhonchi or any wheezing. CARDIOVASCULAR: Regular. S1 and S2 normal. No appreciable rubs, murmurs or gallops. ABDOMEN: Soft, nontender, and nondistended. There is no rebound, voluntary guarding, or rigidity. : Deferred. No Chong. EXTREMITIES: Non-edematous and not cyanotic. No clubbing. Good capillary refill. Left TMA. SKIN: No skin breakdown. Vital Signs (last 8hr) Date Time Temp Pulse Resp B/P (MAP) Pulse Ox O2 Delivery O2 Flow Rate FiO2 10/25/24 20:22 98.4 56 19 162/68 99 Room Air 10/25/24 18:41 58 18 10/25/24 16:38 98.4 61 20 149/80 91 LABS: Laboratory: Test 10/25/24 19:59 10/24/24 07:30 10/24/24 00:43 10/23/24 21:46 Range/Units Whole Blood Glucose 234 #H 70-110 MG/DL Bedside Glucose Comment Notified Nurse White Blood Count 8.8 # 4.8-10.8 K/uL Red Blood Count 4.05 L 4.50-6.20 MIL/uL Hemoglobin 11.2 L 14.0-18.0 g/dL Hematocrit 34.5 L 42-54 % Mean Corpuscular Volume 85.2 79-99 fL Mean Corpuscular Hemoglobin 27.7 27.0-33.0 pg Mean Corpuscular Hemoglobin Concent 32.5 32.0-36.0 g/dL Red Cell Distribution Width 13.5 11.0-15.5 % Platelet Count 294 130-400 K/uL Mean Platelet Volume 10.3 7.5-10.5 fL Nucleated Red Blood Cells 0.0 0.0-0.19 % D-Dimer Quantitative (PE/DVT) 469 0-500 ng/mL Sodium Level 138 136-145 mmol/L Potassium Level 3.8 3.5-5.1 mmol/L Chloride Level 104 101-111 mmol/L Carbon Dioxide Level 26 21-32 mmol/L Blood Urea Nitrogen 21 H 7-18 mg/dL Creatinine 1.4 H 0.5-1.3 mg/dL Glomerular Filtration Rate Calc 60 >90 mL/min Random Glucose 179 #H 70-105 mg/dL Total Calcium 8.1 L 8.5-10.1 mg/dL Phosphorus Level 5.0 H 2.5-4.9 mg/dL Magnesium Level 2.00 1.80-2.40 mg/dL Thyroid Stimulating Hormone (TSH) 1.93 # 0.36-3.74 uIU/mL Urine Color LIGHT-YELLOW YELLOW Urine Appearance CLEAR CLEAR Urine pH 6.0 5.0-8.0 Urine Specific [place] 1.017 1.001-1.031 Urine Protein 300 H NEGATIVE mg/dL Urine Glucose (UA) >=1000 H NEGATIVE mg/dL Urine Ketones NEGATIVE NEGATIVE mg/dL Urine Occult Blood SMALL H NEGATIVE Urine Nitrate NEGATIVE NEGATIVE Urine Bilirubin NEGATIVE NEGATIVE mg/dL Urine Urobilinogen 0.2 0.2-1.0 mg/dL Urine Leukocyte Esterase NEGATIVE NEGATIVE Lise/uL Urine RBC 2-5 H 0-1 /HPF Urine WBC 2-5 H 0-1 /HPF Urine Squamous Epithelial Cells RARE 0-2 /HPF Urine Bacteria None None Seen /HPF Urine Hyaline Casts 2-5 H 0-1 /LPF /LPF Urine Opiates Screen NEGATIVE NEGATIVE Urine Barbiturates Screen NEGATIVE NEGATIVE Urine Phencyclidine Screen NEGATIVE NEGATIVE Urine Amphetamines Screen NEGATIVE NEGATIVE Urine Benzodiazepines Screen NEGATIVE NEGATIVE Urine Cocaine Screen POSITIVE H NEGATIVE Urine Marijuana (THC) Screen NEGATIVE NEGATIVE Whole Blood Ketones Quantitative 0.2 0.0-0.6 mmol/L Current Medications Medications (Trade) Dose Ordered Sig/Shiva Route PRN Reason Start Time Stop Time Status Last Admin Dose Admin Acetaminophen (TYLenol 325MG TAB) 650 mg Q6H PRN PO FEVER/MILD PAIN LEVEL 1-3 10/24/24 00:00 11/23/24 00:00 Acetaminophen (TYLenol 650MG SUPPOSITORY) 650 mg Q6H PRN RC FEVER / MILD PAIN 1-3 IF NPO 10/24/24 00:00 11/23/24 00:00 Aspirin (Aspirin 81mg Chew Tab) 81 mg DAILY PO 10/24/24 09:00 11/23/24 08:59 10/25/24 08:28 81 MG Atorvastatin Calcium (LIPItor 40MG) 40 mg HS PO 10/24/24 21:00 11/23/24 20:59 10/25/24 19:54 40 MG Clopidogrel Bisulfate (plaVIX 75MG) 75 mg DAILY PO 10/24/24 11:00 11/23/24 10:59 10/25/24 08:29 75 MG Dextrose (D50w) 50 ml AD PRN IV HYPOGLYCEMIA PROTOCOL 10/24/24 10:30 11/23/24 10:29 Docusate Sodium (COLace 100MG CAP) 100 mg BID PRN PO c 10/24/24 00:00 11/23/24 00:00 Doxycycline Hyclate (Doxycycline 100mg+NS 250ml) 100 mg Q12H IV 10/24/24 00:00 11/03/24 00:00 10/25/24 12:05 100 MG Famotidine (Pepcid 20mg Tab) 20 mg DAILY PO 10/24/24 09:00 11/23/24 08:59 10/25/24 08:29 20 MG Glucagon (Glucagon 1mg Kit) 1 mg AD PRN IM HYPOGLYCEMIA PROTOCOL 10/24/24 10:30 11/23/24 10:29 Insulin Human Regular (humuLIN R 100 UNIT/ML 3ML) INSULIN SLIDING SCAL... ACHS SQ 10/24/24 07:30 11/23/24 07:29 10/25/24 20:57 10 UNIT Ipratropium [place] (AtrovENT UD) 0.5 mg [id number] IH 10/24/24 00:00 11/23/24 00:00 10/25/24 18:41 0.5 MG Labetalol HCl (TRANdate 20MG SYG) 10 mg Q2H PRN IV SBP GREATER THAN 160 10/24/24 00:00 11/23/24 00:00 Lactulose (Constulose 20gm/ 30ml Udcup) 20 gm Q6H PRN PO CONSTIPATION 10/24/24 00:00 11/23/24 00:00 Losartan Potassium (CozAAR 50 mg TAB) 50 mg BID PO 10/24/24 21:00 11/23/24 20:59 10/25/24 19:54 50 MG Magnesium Sulfate 50 ml @ 0 mls/hr PROTOCOL PRN IV MAGNESIUM PROTOCOL 10/24/24 10:30 11/23/24 10:29 Metoprolol Tartrate (loprESSOR) 25 mg BID PO 10/24/24 11:00 11/23/24 10:59 10/25/24 19:54 25 MG Ondansetron HCl (zoFRAN 4MG INJ) 4 mg Q6H PRN IVP NAUSEA/VOMITING 10/24/24 00:00 11/23/24 00:00 Potassium Chloride 100 ml @ 100 mls/hr AD PRN IV POTASSIUM PROTOCOL 10/24/24 10:30 11/23/24 10:29 Potassium Chloride (K-Dur/Klor-Con 20meq) 10 meq AD PRN PO POTASSIUM PROTOCOL 10/24/24 10:30 11/23/24 10:29 Potassium Chloride (KCl 10% Elixir 20meq/15ml) 10 meq AD PRN PO POTASSIUM PROTOCOL 10/24/24 10:30 11/23/24 10:29 Temazepam (restORIL 15 MG CAP) 15 mg HS PRN PO INSOMNIA/SLEEP 10/24/24 00:00 11/23/24 00:00 DIAGNOSTICS / RADIOLOGY: [ ] ASSESSMENT: Prominent bilateral interstitial markings, bronchitis vs vascular congestion LVEF 35-40%, stage II diastolic dysfunction, per echo on 06/14/2024 Cardiac silhouette is within normal limits. Acute kidney injury, GFR 48 (prior GFR 81 on 07/30/2024) Acute on chronic kidney disease, POA Leukocytosis Electrolyte derangement (hyponatremia, hypochloremia, hypocalcemia, hypomagnesemia) Diabetes mellitus with hyperglycemia Anemia chronic disease Cocaine abuse Proteinuria Glucosuria PLAN: Admit to medical floor with telemetry monitoring. Monitor respiratory status closely. Continue oxygen therapy as needed. Titrate oxygen p.r.n. to keep SpO2 equal to greater than 92%. Albuterol and Atrovent scheduled. Pulmicort nebulizer treatment b.i.d.. RT to provide IS and education on use. Robitussin DM as needed for cough. Start doxycycline 100 mg IV b.i.d.. EKGs series. 2D echo in a.m.. Nitroglycerin as needed for chest pain. Aspirin 81 mg p.o. daily. Resume home medication Aspirin and Plavix. Reconcile rest of home medications once provided. Atorvastatin 40 mg p.o. daily. Strict I&Os. Fluid restriction a 1200 mL in24 hours. P.r.n. medications for: Pain management, nausea, vomiting, hypertension, constipation. Glucometer checks a.c. and HS with insulin high sliding scale coverage as needed per protocol. Blood pressure checks every4 hours and as needed. Monitor renal and liver function. Monitor electrolytes and treat accordingly. A.m. labs: CBC, BNP, Mag, phos, TSH, A1c, D-DIMER. GI and DVT prophylaxis. YAZMIN RAMOS MD Oct 25, 2024 21:15
--- NOTE | 2024-10-25 22:17 | NUR ---
DR. MCCARTHY IN HOUSE TO SEE PATIENT. VERBAL ORDER TO MAKE PATIENT NPO AFTER MIDNIGHT. FURTHER ORDERS WILL BE PLACED LATER ON IN THE EVENING.
--- NOTE | 2024-10-25 23:23 | CONS ---
[facility] CARDIOLOGY CONSULTATION NOTE Date Patient Seen: Oct 25, 2024 Time of Visit: 23:15 Requesting Physician: [ ] Reason for Consultation: [ ] History of Present Illness: [Patient presented to the emergency room because when he was walking from his father's house to his own (next-door neighbors) he experienced abrupt onset of shortness of breath with retrosternal pressure-like pain and then experienced presyncope followed by syncope. He says he lost consciousness and fell to the ground. He does not remember hitting the ground. There were visual changes preceding the actual syncopal episode. He has never experienced this type of symptom complex previously. ] Past Medical History: [Diabetes for several decades, complicated by polyneuropathy and peripheral vascular disease Diabetic retinopathy, blind in left eye Coronary disease, prior stent procedure Cocaine abuse ] Past Surgical History: [Transmetatarsal amputation left foot ] Family History: [Positive heart disease ] Social History: [Cocaine abuse, last dose a week before hospitalization ] Habits: [Admits] smoker. [Admits] alcohol consumption. [Admits] illicit drug use Home Meds: [ ] Current Meds: [ ] Review of Systems: CONST: [No fever, fatigue, or weight changes.] EYES: [Blind left eye, visual obscuration before syncope.] ENT: [No congestion, ear pain, or sore throat.] C/V: [Admits chest pain, admits syncope, denies palpitations, or edema.] RESP: [No cough, congestion, wheezing, but admits exertional shortness of breath.] GI: [No abdominal pain, nausea, vomiting, constipation, or diarrhea.] : [No incontinence or dysuria.] SKIN: [No rash.] NEURO: [No headache, focal numbness or weakness, dizziness, or seizures.] PSYCH: [No depression or anxiety.] HEME: [No abnormal bruising or bleeding.] LYMPH: [No swollen glands.] Physical Examination: GENERAL: [No acute distress.] HEAD: [Normal with no signs of head trauma.] EYES: [PERRLA, EOMI, conjunctiva and sclera normal.] ENT: [Hearing grossly intact, normal oropharynx.] NECK: [Supple without JVD. There is no tenderness, lymphadenopathy, or masses. No thyromegaly. Normal carotid upstrokes without bruits.] LUNGS: [Clear breath sounds bilaterally. There are right basilar rales one third of the way up the chest. No wheezes, or rhonchi.] HEART: [Normal rate and rhythm. Normal S1 and S2 with soft pulmonic outflow murmur, gallop or rub.] VASC: [Right popliteal pulse is 2 + and somewhat stronger than 2+ pulse on the left popliteal. Left posterior tibial pulse and dorsalis pedis pulse are 1+, right dorsalis pedis is absent and right posterior tibial is 1+. Radial and ulnar pulses are 2+ bilaterally.] ABD: [Bowel sounds normal, soft, nontender, no masses, no organomegaly. No audible bruits.] : [Not examined] LYMPH: [No lymphadenopathy noted.] EXT: [No clubbing, cyanosis or edema. Left transmetatarsal amputation noted.] SKIN: [No rashes or lesions noted. Reports a tack punctured his left foot and we do see evidence of a puncture on the ball of the left foot on the plantar surface, but no purulence or erythema or other signs of infection at this time] NEURO: [Awake, alert, and oriented x3. No focal sensory or strength deficits noted. Diminished sensation both feet] Vital Signs (last 8hr) Date Time Temp Pulse Resp B/P (MAP) Pulse Ox O2 Delivery O2 Flow Rate FiO2 10/25/24 20:22 98.4 56 19 162/68 99 Room Air 10/25/24 19:25 99 Room Air* 0 21 10/25/24 18:41 58 18 10/25/24 16:38 98.4 61 20 149/80 91 Laboratory: [ ] Hematology Labs: Test 10/24/24 07:30 Range/Units White Blood Count 8.8 # 4.8-10.8 K/uL Red Blood Count 4.05 L 4.50-6.20 MIL/uL Hemoglobin 11.2 L 14.0-18.0 g/dL Hematocrit 34.5 L 42-54 % Mean Corpuscular Volume 85.2 79-99 fL Mean Corpuscular Hemoglobin 27.7 27.0-33.0 pg Mean Corpuscular Hemoglobin Concent 32.5 32.0-36.0 g/dL Red Cell Distribution Width 13.5 11.0-15.5 % Platelet Count 294 130-400 K/uL Mean Platelet Volume 10.3 7.5-10.5 fL Nucleated Red Blood Cells 0.0 0.0-0.19 % Chemistry Labs: Test 10/25/24 19:59 10/24/24 07:30 Range/Units Whole Blood Glucose 234 #H 70-110 MG/DL Bedside Glucose Comment Notified Nurse Sodium Level 138 136-145 mmol/L Potassium Level 3.8 3.5-5.1 mmol/L Chloride Level 104 101-111 mmol/L Carbon Dioxide Level 26 21-32 mmol/L Blood Urea Nitrogen 21 H 7-18 mg/dL Creatinine 1.4 H 0.5-1.3 mg/dL Glomerular Filtration Rate Calc 60 >90 mL/min Random Glucose 179 #H 70-105 mg/dL Total Calcium 8.1 L 8.5-10.1 mg/dL Phosphorus Level 5.0 H 2.5-4.9 mg/dL Magnesium Level 2.00 1.80-2.40 mg/dL Thyroid Stimulating Hormone (TSH) 1.93 # 0.36-3.74 uIU/mL Coagulation Labs: Test 10/24/24 07:30 Range/Units D-Dimer Quantitative (PE/DVT) 469 0-500 ng/mL Diagnostics / Radiology: [Copy/Paste Echos/Imaging Report here] Assessment: [Patient presents with ominous symptoms that sound like he may have had an acute coronary event associated with potentially lethal arrhythmia and syncope ] Plan: [Should have coronary arteriography, we will schedule tomorrow. ] ALEN MCCARTHY MD Oct 25, 2024 23:23
[2024-10-26] VITALS (16 sets, daily range): BP systolic 121–154; BP diastolic 59–86; PULSE 48–55; RESP 16–20; TEMP 97.5–98.5; O2SAT 96–99
[2024-10-26] MEDS: 0.9% NACL 500ML IV.SOLN 500 ML IV SCH (00:23)
[2024-10-26 08:22] LABS: INR 0.97 (0.85-1.15); PROTHROMBIN TIME 10.3 SEC (9.6-11.6)
[2024-10-26 08:24] LABS: PARTIAL THROMBOPLASTIN TIME 27.3 SEC (26.3-35.5)
[2024-10-26] MEDS ORDERED: ASPIRIN 81MG CHEW TAB PO SCH (09:00)
[2024-10-26] MEDS ORDERED: PoTASSium chloRIDE 10MEQ SR 10 MEQ/TAB TAB.SR.24H PO PRN (11:30)
[2024-10-26] MEDS ORDERED: LIDOCAINE HCL 400MG/20ML VIAL ONE (13:50)
[2024-10-26] MEDS ORDERED: IOHEXOL 350 MG/ML 100ML INFUS..BTL IV ONE (13:51)
[2024-10-26] MEDS ORDERED: HEParin 10,000 UNIT/10ML (1,000 UNIT/ML) VIAL ONE (13:51)
[2024-10-26] MEDS ORDERED: HEParin-NS 1,000 UNIT/500 ML 1,000 ML IV ONE (13:51)
[2024-10-26] MEDS ORDERED: NITROGLYCERIN 50MG VIAL ONE (13:52)
[2024-10-26] MEDS ORDERED: niCARDIpine 25MG INJ IV ONE (14:02)
[2024-10-26] MEDS ORDERED: SODIUM BICARB 50MEQ 50ML VIAL 50 ML ONE (14:04)
[2024-10-26] MEDS ORDERED: FENTanyl CITRate PF 50 MCG/1 ML 2ML VIAL ONE (14:30)
[2024-10-26] MEDS ORDERED: MIDAZOLAM HCL 1 MG/ML 2ML VIAL ONE (14:30)
[2024-10-26] MEDS ORDERED: ATROPINE 1MG SYG IVP ONE (14:47)
--- NOTE | 2024-10-26 15:24 | PRN ---
Left heart catheterization and coronary Arteriogram Indication: Abrupt onset of dyspnea and chest pressure associated with syncope. Technique: Patient was brought to the lab in a fasting state after informed consent and sedated with 1 mg Versed and 50 mcg fentanyl. Under local anesthesia with 1% lidocaine right radial access was gained and a 5/6 [place] Terumo sheath was inserted. A radial cocktail of 200 mcg nitroglycerin, 200 mcg nicardipine, and 5000 units aqueous heparin was administered via the sheath. Left and right coronary arteriograms were obtained using a six [place] TIGG catheter and an exchange was made for a six [place] angled pigtail with which left heart catheterization was carried out and left ventricular cine angiography was performed. The catheter was removed over the sheath and an exchange was made for a Terumo band with which hemostasis was obtained. No complications occurred. Results: Hemodynamics: LVEDP 12, 11 after angiography. LV systolic pressure 167. Aortic root pressure 165/57, mean 103. Ventriculography: Left ventricular cine angiography induced ventricular ectopy so an accurate estimate of EF is not available, but by planimetry a post PVC beat showed 65% ejection fraction. Wall motion appears to be normal. Mitral valve is competent. Angiography: This is a right-dominant system. The right coronary supplies a posterior desce nding and two posterolateral. The 1st posterolateral bifurcates and courses over the inferior wall and the 2nd posterolateral courses over the inferolateral wall. There is a 50% narrowing in the proximal portion of the posterior descending but otherwise the right coronary is free of high-grade disease. The left main is free of disease. The left anterior descending gives rise to a large ramus intermedius, then in the proximal half of the LAD is a very large diagonal that courses over the anterolateral wall and approaches the apex. By contrast, the distal LAD is relatively small, both in distribution and caliber. There is segmental 70-85% disease between the 1st and 2nd diagonal and there was 90% stenosis at the origin of a small 2nd diagonal. After the 2nd diagonal of the LAD diameter is about 1.7 mm. The left circumflex supplies a small 1st obtuse marginal narrowed by 90% at its origin, and a large inferolateral branch that courses to the apex with diffuse 65% disease in its midportion and 90% stenosis in its apical 3rd. Conclusions: Ventricular function is preserved. Diffuse disease in the circumflex and distal LAD may cause ischemic complications but the distal LAD is not amenable to intervention because of diffuse disease and small caliber, and the circumflex branch also has diffuse disease. Recommendation: EP consultation. Medical therapy, use calcium channel blockers because this patient uses cocaine heavily. ALEN MCCARTHY MD Oct 26, 2024 15:24
--- NOTE | 2024-10-26 16:02 | PN ---
[facility] PROGRESS NOTE Date of Service: Oct 26, 2024 Time of Service: 16:02 SUBJECTIVE: [ ] 10/24/24 patient was seen and examined in the holding. Case discussed with the RN. He is doing better. His hyponatremia has resolved. His renal function has improved to creatinine of 1.4 His glycemic control is also improving. Continue current management 10/25/24 patient was seen and examined in the holding. Case discussed with the RN. He denies n/v/f/c 10/26/24 patient was seen and examined. Case discussed with RN. Continues to do better. We will increase his diet and physical activity REVIEW OF SYSTEMS 12-point ROS reviewed with patient. All pertinent positives mentioned above. Otherwise negative, noncontributory, or non-pertinent. PHYSICAL EXAM GENERAL APPEARANCE: The patient is awake, alert, and oriented, in no acute cardiopulmonary distress. NEUROLOGICAL: Cranial nerves II-XII grossly intact. Motor is 5/5 in bilateral upper and lower extremities proximal to distal. No sensory deficits. HEENT: Face is symmetric. Pupils are equal and reactive. Extraocular movements are intact. NECK: Supple. No JVD. No thyromegaly. No submental, submandibular, pre- /postauricular, occipital or supraclavicular lymphadenopathy. CHEST: Normal chest expansion. No Telemetry. LUNGS: Absence of any rales, rhonchi or any wheezing. CARDIOVASCULAR: Regular. S1 and S2 normal. No appreciable rubs, murmurs or gallops. ABDOMEN: Soft, nontender, and nondistended. There is no rebound, voluntary guarding, or rigidity. : Deferred. No Chong. EXTREMITIES: Non-edematous and not cyanotic. No clubbing. Good capillary ref ill. Left TMA. SKIN: No skin breakdown. Vital Signs (last 8hr) Date Time Temp Pulse Resp B/P (MAP) Pulse Ox O2 Delivery O2 Flow Rate FiO2 10/26/24 11:47 98.2 49 16 145/81 99 Room Air 10/26/24 11:27 50 18 10/26/24 08:38 97.5 55 16 151/75 99 Room Air 10/26/24 08:10 99 Room Air* 0 21 LABS: Laboratory: Test 10/26/24 10:34 10/26/24 07:56 10/26/24 05:05 Range/Units Whole Blood Glucose 166 H 70-110 MG/DL Prothrombin Time 10.3 9.6-11.6 SEC Prothromb Time International Ratio 0.97 0.85-1.15 Activated Partial Thromboplast Time 27.3 26.3-35.5 SEC Bedside Glucose Comment Notified Nurse Current Medications Medications (Trade) Dose Ordered Sig/Shiva Route PRN Reason Start Time Stop Time Status Last Admin Dose Admin Acetaminophen (TYLenol 325MG TAB) 650 mg Q6H PRN PO FEVER/MILD PAIN LEVEL 1-3 10/24/24 00:00 11/23/24 00:00 Acetaminophen (TYLenol 650MG SUPPOSITORY) 650 mg Q6H PRN RC FEVER / MILD PAIN 1-3 IF NPO 10/24/24 00:00 11/23/24 00:00 Aspirin (Aspirin 81mg Chew Tab) 81 mg DAILY PO 10/26/24 09:00 10/25/24 23:29 DC Aspirin (Aspirin 81mg Chew Tab) 81 mg DAILY PO 10/24/24 09:00 11/23/24 08:59 10/26/24 08:17 81 MG Atorvastatin Calcium (LIPItor 40MG) 40 mg HS PO 10/24/24 21:00 11/23/24 20:59 10/25/24 19:54 40 MG Clopidogrel Bisulfate (plaVIX 75MG) 75 mg DAILY PO 10/24/24 11:00 11/23/24 10:59 10/25/24 08:29 75 MG Dextrose (D50w) 50 ml AD PRN IV HYPOGLYCEMIA PROTOCOL 10/24/24 10:30 11/23/24 10:29 Diltiazem HCl (CARDIzem 120MG CD) 240 mg DAILY PO 10/27/24 09:00 11/26/24 08:59 Docusate Sodium (COLace 100MG CAP) 100 mg BID PRN PO c 10/24/24 00:00 11/23/24 00:00 Doxycycline Hyclate (Doxycycline 100mg+NS 250ml) 100 mg Q12H IV 10/24/24 00:00 11/03/24 00:00 10/26/24 11:49 100 MG Famotidine (Pepcid 20mg Tab) 20 mg DAILY PO 10/24/24 09:00 11/23/24 08:59 10/26/24 08:16 20 MG Glucagon (Glucagon 1mg Kit) 1 mg AD PRN IM HYPOGLYCEMIA PROTOCOL 10/24/24 10:30 11/23/24 10:29 Insulin Human Regular (humuLIN R 100 UNIT/ML 3ML) INSULIN SLIDING SCAL... ACHS SQ 10/24/24 07:30 11/23/24 07:29 10/25/24 20:57 10 UNIT Ipratropium [place] (AtrovENT UD) 0.5 mg [id number] IH 10/24/24 00:00 11/23/24 00:00 10/26/24 11:26 0.5 MG Labetalol HCl (TRANdate 20MG SYG) 10 mg Q2H PRN IV SBP GREATER THAN 160 10/24/24 00:00 11/23/24 00:00 Lactulose (Constulose 20gm/ 30ml Udcup) 20 gm Q6H PRN PO CONSTIPATION 10/24/24 00:00 11/23/24 00:00 Losartan Potassium (CozAAR 50 mg TAB) 50 mg BID PO 10/24/24 21:00 11/23/24 20:59 10/26/24 08:16 50 MG Magnesium Sulfate 50 ml @ 0 mls/hr PROTOCOL PRN IV MAGNESIUM PROTOCOL 10/24/24 10:30 11/23/24 10:29 Metoprolol Tartrate (loprESSOR) 25 mg BID PO 10/24/24 11:00 10/26/24 15:16 DC 10/26/24 08:16 25 MG Ondansetron HCl (zoFRAN 4MG INJ) 4 mg Q6H PRN IVP NAUSEA/VOMITING 10/24/24 00:00 11/23/24 00:00 Potassium Chloride 100 ml @ 100 mls/hr AD PRN IV POTASSIUM PROTOCOL 10/24/24 10:30 11/23/24 10:29 Potassium Chloride (K-Dur 10meq Sr Tab) 10 meq AD PRN PO POTASSIUM PROTOCOL 10/26/24 11:30 11/23/24 10:29 Potassium Chloride (K-Dur/Klor-Con 20meq) 10 meq AD PRN PO POTASSIUM PROTOCOL 10/24/24 10:30 10/26/24 11:11 DC Potassium Chloride (KCl 10% Elixir 20meq/15ml) 10 meq AD PRN PO POTASSIUM PROTOCOL 10/24/24 10:30 11/23/24 10:29 Sodium Chloride 500 ml @ 0 mls/hr Q0M IV 10/25/24 23:30 11/24/24 23:29 10/26/24 00:23 3 MLS/HR Sodium Chloride 1,000 ml @ 150 mls/hr Q6H40M IV 10/26/24 15:30 10/26/24 19:29 Temazepam (restORIL 15 MG CAP) 15 mg HS PRN PO INSOMNIA/SLEEP 10/24/24 00:00 11/23/24 00:00 DIAGNOSTICS / RADIOLOGY: [ ] ASSESSMENT: Prominent bilateral interstitial markings, bronchitis vs vascular congestion LVEF 35-40%, stage II diastolic dysfunction, per echo on 06/14/2024 Cardiac silhouette is within normal limits. Acute kidney injury, GFR 48 (prior GFR 81 on 07/30/2024) Acute on chronic kidney disease, POA Leukocytosis Electrolyte derangement (hyponatremia, hypochloremia, hypocalcemia, hypomagnesemia) Diabetes mellitus with hyperglycemia Anemia chronic disease Cocaine abuse Proteinuria Glucosuria PLAN: Admit to medical floor with telemetry monitoring. Monitor respiratory status closely. Continue oxygen therapy as needed. Titrate oxygen p.r.n. to keep SpO2 equal to greater than 92%. Albuterol and Atrovent scheduled. Pulmicort nebulizer treatment b.i.d.. RT to provide IS and education on use. Robitussin DM as needed for cough. Start doxycycline 100 mg IV b.i.d.. EKGs series. 2D echo in a.m.. Nitroglycerin as needed for chest pain. Aspirin 81 mg p.o. daily. Resume home medication Aspirin and Plavix. Reconcile rest of home medications once provided. Atorvastatin 40 mg p.o. daily. Strict I&Os. Fluid restriction a 1200 mL in24 hours. P.r.n. medications for: Pain management, nausea, vomiting, hypertension, constipation. Glucometer checks a.c. and HS with insulin high sliding scale coverage as needed per protocol. Blood pressure checks every4 hours and as needed. Monitor renal and liver function. Monitor electrolytes and treat accordingly. A.m. labs: CBC, BNP, Mag, phos, TSH, A1c, D-DIMER. GI and DVT prophylaxis. YAZMIN RAMOS MD Oct 26, 2024 16:02
[2024-10-26] MEDS: 0.9%NACL 1000ML 1,000 ML IV SCH (16:03)
--- NOTE | 2024-10-26 19:40 | NUR ---
REMOVED TR BAND PER PROTOCOL, SITE WITHOUT EVIDENCE OF HEMATOMA AT THIS TIME. PATIENT NOT VERBALIZING PAIN TO SITE.
[2024-10-27] VITALS (13 sets, daily range): BP systolic 114–158; BP diastolic 58–89; PULSE 54–64; RESP 18–20; TEMP 97.5–98.5; O2SAT 97–100
--- NOTE | 2024-10-27 08:41 | PN ---
Patient presented with the abrupt onset of dyspnea and chest pressure followed by presyncope and then full syncope, while ambulating from his father's home next door to the patient's home. Troponins were normal but the presentation appeared ischemic. Coronary arteriography demonstrated a very large diagonal branch of the LAD that was actually larger than the distal LAD segment itself, but that distal LAD segment was diffusely diseased and there was additional disease in the circumflex and right coronary. These lesions were not optimal for catheter based or surgical intervention, so medical therapy is continued. Because the patient uses cocaine regularly, at least every 3-4 days admittedly, we are avoiding beta-blockers and I have it instead used diltiazem. While this may help reduce coronary spasm and potentially could have some theoretical advantage with cocaine abuse (not proven), it does not have the myocardial protective benefit that a beta-johnny would in a person who does not use cocai ne. I think the patient should be discharged on dual antiplatelet therapy and diltiazem as currently ordered, and I have consulted Dr. Fagan to see whether further arrhythmia evaluation is appropriate and whether anything more can be done to protect the patient from a potential arrest. His syncopal episode is not clearly defined as to etiology but is suspicious for an ischemic arrhythmia. When Dr. Fagan has finished his evaluation and his recommendations have been implemented, the patient can be discharged. Vitals/Labs Vital Signs Date Time Temp Pulse Resp B/P (MAP) Pulse Ox O2 Delivery O2 Flow Rate FiO2 10/27/24 08:00 97.5 61 18 114/62 99 Room Air 10/27/24 06:48 21 10/26/24 20:00 0 Medications Current Medications Albuterol 1 UDVIAL ONCE ONCE IH Last administered on 10/23/24at 20:26; Start 10/23/24 at 20:00; Stop 10/23/24 at 20:01; Status DC Sodium Chloride 1,000 ml @ 0 mls/hr ONCE ONCE IV Last administered on 10/23/24at 21:50; Start 10/23/24 at 22:00; Stop 10/23/24 at 22:01; Status DC Insulin Human Regular 5 unit ONCE ONCE SQ Last administered on 10/23/24at 21:56; Start 10/23/24 at 22:00; Stop 10/23/24 at 22:01; Status DC Ipratropium [place] 0.5 mg [id number] IH Last administered on 10/27/24at 06:45; Start 10/24/24 at 00:00; Stop 11/23/24 at 00:00 Doxycycline Hyclate 100 mg Q12H IV Last administered on 10/27/24at 00:09; Start 10/24/24 at 00:00; Stop 11/03/24 at 00:00 Famotidine 20 mg DAILY PO Last administered on 10/26/24at 08:16; Start 10/24/24 at 09:00; Stop 11/23/24 at 08:59 Aspirin 81 mg DAILY PO Last administered on 10/26/24at 08:17; Start 10/24/24 at 09:00; Stop 11/23/24 at 08:59 Acetaminophen 650 mg Q6H PRN PO; Start 10/24/24 at 00:00; Stop 11/23/24 at 00:00 Acetaminophen 650 mg Q6H PRN RC; Start 10/24/24 at 00:00; Stop 11/23/24 at 00:00 Lactulose 20 gm Q6H PRN PO; Start 10/24/24 at 00:00; Stop 11/23/24 at 00:00 Docusate Sodium 100 mg BID PRN PO; Start 10/24/24 at 00:00; Stop 11/23/24 at 00:00 Temazepam 15 mg HS PRN PO; Start 10/24/24 at 00:00; Stop 11/23/24 at 00:00 Ondansetron HCl 4 mg Q6H PRN IVP; Start 10/24/24 at 00:00; Stop 11/23/24 at 00:00 Labetalol HCl 10 mg Q2H PRN IV; Start 10/24/24 at 00:00; Stop 11/23/24 at 00:00 Insulin Human Regular INSULIN SLIDING SCAL... ACHS SQ Last administered on 10/27/24at 06:14; Start 10/24/24 at 07:30; Stop 11/23/24 at 07:29 Dextrose 50 ml AD PRN IV; Start 10/24/24 at 10:30; Stop 11/23/24 at 10:29 Glucagon 1 mg AD PRN IM; Start 10/24/24 at 10:30; Stop 11/23/24 at 10:29 Potassium Chloride 100 ml @ 100 mls/hr AD PRN IV; Start 10/24/24 at 10:30; Stop 11/23/24 at 10:29 Potassium Chloride 10 meq AD PRN PO; Start 10/24/24 at 10:30; Stop 11/23/24 at 10:29 Potassium Chloride 10 meq AD PRN PO; Start 10/24/24 at 10:30; Stop 10/26/24 at 11:11; Status DC Magnesium Sulfate 50 ml @ 0 mls/hr PROTOCOL PRN IV; Start 10/24/24 at 10:30; Stop 11/23/24 at 10:29 Clopidogrel Bisulfate 75 mg DAILY PO Last administered on 10/25/24at 08:29; Start 10/24/24 at 11:00; Stop 11/23/24 at 10:59 Atorvastatin Calcium 40 mg HS PO Last administered on 10/26/24at 21:56; Start 10/24/24 at 21:00; Stop 11/23/24 at 20:59 Metoprolol Tartrate 25 mg BID PO Last administered on 10/26/24at 08:16; Start 10/24/24 at 11:00; Stop 10/26/24 at 15:16; Status DC Losartan Potassium 50 mg BID PO Last administered on 10/26/24at 21:56; Start 10/24/24 at 21:00; Stop 11/23/24 at 20:59 Guaifenesin 400 mg ONCE ONCE PO Last administered on 10/24/24at 13:18; Start 10/24/24 at 11:30; Stop 10/24/24 at 11:31; Status DC Sodium Chloride 500 ml @ 0 mls/hr Q0M IV Last administered on 10/26/24at 00:23; Start 10/25/24 at 23:30; Stop 11/24/24 at 23:29 Aspirin 81 mg DAILY PO; Start 10/26/24 at 09:00; Stop 10/25/24 at 23:29; Status DC Potassium Chloride 10 meq AD PRN PO; Start 10/26/24 at 11:30; Stop 11/23/24 at 10:29 Lidocaine HCl 20 ml STK-MED ONCE .ROUTE; Start 10/26/24 at 13:50; Stop 10/26/24 at 13:51; Status DC Iohexol 35,000 mg STK-MED ONCE IV; Start 10/26/24 at 13:51; Stop 10/26/24 at 13:51; Status DC Heparin Sodium (Porcine) 10,000 unit STK-MED ONCE .ROUTE; Start 10/26/24 at 13:51; Stop 10/26/24 at 13:51; Status DC Heparin Sodium/ Sodium Chloride 1,000 ml @ As Directed STK-MED ONCE IV; Start 10/26/24 at 13:51; Stop 10/26/24 at 13:51; Status DC Nitroglycerin 50 mg STK-MED ONCE .ROUTE; Start 10/26/24 at 13:52; Stop 10/26/24 at 13:52; Status DC Nicardipine HCl 25 mg STK-MED ONCE IV; Start 10/26/24 at 14:02; Stop 10/26/24 at 14:03; Status DC Sodium Bicarbonate 50 ml @ As Directed STK-MED ONCE .ROUTE; Start 10/26/24 at 14:04; Stop 10/26/24 at 14:05; Status DC Fentanyl Citrate 100 mcg STK-MED ONCE .ROUTE; Start 10/26/24 at 14:30; Stop 10/26/24 at 14:30; Status DC Midazolam HCl 2 mg STK-MED ONCE .ROUTE; Start 10/26/24 at 14:30; Stop 10/26/24 at 14:31; Status DC Atropine Sulfate 1 mg STK-MED ONCE IVP; Start 10/26/24 at 14:47; Stop 10/26/24 at 14:48; Status DC Sodium Chloride 1,000 ml @ 150 mls/hr Q6H40M IV Last administered on 10/26/24at 16:03; Start 10/26/24 at 15:30; Stop 10/26/24 at 19:29; Status DC Diltiazem HCl 240 mg DAILY PO; Start 10/27/24 at 09:00; Stop 11/26/24 at 08:59 ALEN MCCARTHY MD Oct 27, 2024 08:41
[2024-10-27] MEDS: dilTIAZem 120MG SR CAP PO SCH (10:03)
[2024-10-27 16:18] LABS: BASOPHILS # (AUTO) 0.11 K/uL (0.00-0.20); BASOPHILS % (AUTO) 1.1 % (0.0-5.0); EOSINOPHILS # (AUTO) 0.26 K/uL (0.00-0.70); EOSINOPHILS % (AUTO) 2.6 % (0.0-8.0); HEMATOCRIT 34.6 % (42-54); IMMATURE GRANULOCYTE ABSOLUTE 0.03 K/uL (0-1); LYMPHOCYTES % (AUTO) 30.3 % (21.0-51.0); MEAN CORPUSCULAR HEMOGLOBIN 28.6 pg (27.0-33.0); MEAN CORPUSCULAR HGB CONC 33.5 g/dL (32.0-36.0); MEAN CORPUSCULAR VOLUME 85.4 fL (79-99); MONOCYTES # (AUTO) 0.6 K/uL (0.1-1.0); MONOCYTES % (AUTO) 6.1 % (3.0-13.0); NEUTROPHILS % (AUTO) 59.6 % (40.0-77.0); PLATELET COUNT (AUTO) 305 K/uL (130-400); RED BLOOD CELL COUNT(AUTO) 4.05 MIL/uL (4.50-6.20); RED CELL DISTRIBUTION WIDTH 13.2 % (11.0-15.5)
[2024-10-27 16:26] LABS: POTASSIUM 3.5 mmol/L (3.5-5.1)
--- NOTE | 2024-10-27 17:39 | CONS ---
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 He was admitted 10/23/2024 secondary to chest pain with syncope. He underwent echocardiogram 10/24/2024 which demonstrates an ejection fraction of 35 to 40% with moderate LVH, stage II diastolic dysfunction, mildly dilated left atrium, mild mitral valve regurgitation and normal pericardium. He subsequently underwent left heart catheterization 10/26/2024 which showed diffuse disease in the circumflex, and distal LAD not amenable to intervention due to diffuse disease and small caliber. His initial EKG shows sinus rhythm with early repolarization, heart rate 60 bpm. He has been in sinus rhythm with heart rates in the 50s to 60s on telemetry. On the day of his admission, he states that he began walking and suddenly felt chest pain, shortness of breath lightheadedness which progressed to overt syncope. He also reports 2 weeks ago having difficulty walking while getting out of the shower. He describes it as "his bones getting locked". He states that this has happened on at least 8 occasions. He reports chest pain from time to time that occurs with or without exertion. He also had a recent episode of a choking sensation and palpitations that awaken him from sleep. He has never had any previous syncopal episodes. Patient History: PAST MEDICAL HISTORY: As noted above. SOCIAL HISTORY: He admits to cocaine use. SURGICAL HISTORY: Transmetatarsal amputation of the left foot Allergies: Coded Allergies: No Known Drug Allergies (Unverified Allergy, Unknown, 06/04/21) Additional RoS: negative with exception of HPI Vital Signs Vital Signs 10/27/24 10/27/24 08:45 16:00 Temp 98.1 Pulse 54 Resp 18 B/P (MAP) 142/66 Pulse Ox 98 O2 Delivery Room Air O2 Flow Rate 0 FiO2 21 Appearance: Well dev, well nourished Eyes: EOM Normal, Normal Conjuctivae/eyelid Ear/Nose/Mouth/Throat: Landmarks WNL Neck: Symmetric, trach midline Cardiovascular: Regular Rate, Regular Rhythm Respiratory: Lungs clear Laboratory Tests Test 10/25/24 19:59 10/26/24 05:05 10/26/24 07:56 10/26/24 10:34 Range/Units Whole Blood Glucose 234 158 166 70-110 MG/DL Bedside Glucose Comment Notified Nurse Notified Nurse Prothrombin Time 10.3 9.6-11.6 SEC Prothromb Time International Ratio 0.97 0.85-1.15 Activated Partial Thromboplast Time 27.3 26.3-35.5 SEC Test 10/26/24 16:46 10/26/24 19:21 10/27/24 05:17 10/27/24 11:21 Range/Units Whole Blood Glucose 129 139 158 126 70-110 MG/DL Test 10/27/24 15:22 10/27/24 16:15 Range/Units Whole Blood Glucose 155 70-110 MG/DL White Blood Count 10.0 4.8-10.8 K/uL Red Blood Count 4.05 4.50-6.20 MIL/uL Hemoglobin 11.6 14.0-18.0 g/dL Hematocrit 34.6 42-54 % Mean Corpuscular Volume 85.4 79-99 fL Mean Corpuscular Hemoglobin 28.6 27.0-33.0 pg Mean Corpuscular Hemoglobin Concent 33.5 32.0-36.0 g/dL Red Cell Distribution Width 13.2 11.0-15.5 % Platelet Count 305 130-400 K/uL Mean Platelet Volume 10.6 7.5-10.5 fL Immature Granulocyte % (Auto) 0.3 0-1 % Neutrophils (%) (Auto) 59.6 40.0-77.0 % Lymphocytes (%) (Auto) 30.3 21.0-51.0 % Monocytes (%) (Auto) 6.1 3.0-13.0 % Eosinophils (%) (Auto) 2.6 0.0-8.0 % Basophils (%) (Auto) 1.1 0.0-5.0 % Neutrophils # (Auto) 6.0 1.8-7.7 K/uL Lymphocytes # (Auto) 3.0 1.0-4.8 K/uL Monocytes # (Auto) 0.6 0.1-1.0 K/uL Eosinophils # (Auto) 0.26 0.00-0.70 K/uL Basophils # (Auto) 0.11 0.00-0.20 K/uL Absolute Immature Granulocyte (auto 0.03 0-1 K/uL Nucleated Red Blood Cells 0.0 0.0-0.19 % Sodium Level 141 136-145 mmol/L Potassium Level 3.5 3.5-5.1 mmol/L Chloride Level 107 101-111 mmol/L Carbon Dioxide Level 29 21-32 mmol/L Blood Urea Nitrogen 17 7-18 mg/dL Creatinine 1.0 0.5-1.3 mg/dL Glomerular Filtration Rate Calc 91 >90 mL/min Random Glucose 166 70-105 mg/dL Total Calcium 8.7 8.5-10.1 mg/dL ASSESSMENT: 1. Syncope. 2. Coronary artery disease. 3. Ischemic cardiomyopathy. 4. Cocaine abuse. PLAN: Discussed with Dr. Fagan. 1. He had syncopal episode concerning for ventricular arrhythmia in the setting of an ischemic cardiomyopathy and underlying coronary artery disease. At this point we recommend electrophysiology study with possible ICD if he is found to have inducible ventricular tachycardia versus implanted loop recorder if unremarkable. 2. He was counseled regarding cessation of cocaine use. Due to his cocaine use, he was advised that we are unable to treat him with appropriate medical therapy for heart failure, i.e. beta-blockers, and continued use can lead to progression of his cardiomyopathy as well as coronary artery disease. He voiced understanding and stated that he needs to quit using cocaine. 3. We will plan for the procedure on 10/29/2024. RYAN LOPEZ Oct 27, 2024 17:39
[2024-10-27] MEDS: acetaMINOPHEN 325 MG TAB PO PRN (20:05)
--- NOTE | 2024-10-27 21:44 | PN ---
[facility] PROGRESS NOTE Date of Service: Oct 27, 2024 Time of Service: 21:42 SUBJECTIVE: [ ] 10/24/24 patient was seen and examined in the holding. Case discussed with the RN. He is doing better. His hyponatremia has resolved. His renal function has improved to creatinine of 1.4 His glycemic control is also improving. Continue current management 10/25/24 patient was seen and examined in the holding. Case discussed with the RN. He denies n/v/f/c 10/26/24 patient was seen and examined. Case discussed with RN. Continues to do better. We will increase his diet and physical activity 10/27 24 patient was seen and examined. Case discussed with RN /per Dr Gee, He had syncopal episode concerning for ventricular arrhythmia in the setting of an ischemic cardiomyopathy and underlying coronary artery disease. At this point we recommend electrophysiology study with possible ICD if he is found to have inducible ventricular tachycardia versus implanted loop recorder if unremarkable REVIEW OF SYSTEMS 12-point ROS reviewed with patient. All pertinent positives mentioned above. Otherwise negative, noncontributory, or non-pertinent. PHYSICAL EXAM GENERAL APPEARANCE: The patient is awake, alert, and oriented, in no acute cardiopulmonary distress. NEUROLOGICAL: Cranial nerves II-XII grossly intact. Motor is 5/5 in bilateral upper and lower extremities proximal to distal. No sensory deficits. HEENT: Face is symmetric. Pupils are equal and reactive. Extraocular movements are intact. NECK: Supple. No JVD. No thyromegaly. No submental, submandibular, pre-/postauricular, occipital or supraclavicular lymphadenopathy. CHEST: Normal chest expansion. No Telemetry. LUNGS: Absence of any rales, rhonchi or any wheezing. CARDIOVASCULAR: Regular. S1 and S2 normal. No appreciable rubs, murmurs or gallops. ABDOMEN: Soft, nontender, and nondistended. There is no rebound, voluntary guarding, or rigidity. : Deferred. No Chong. EXTREMITIES: Non-edematous and not cyanotic. No clubbing. Good capillary refill. Left TMA. SKIN: No skin breakdown. Vital Signs (last 8hr) Date Time Temp Pulse Resp B/P (MAP) Pulse Ox O2 Delivery O2 Flow Rate FiO2 10/27/24 20:00 Room Air* 0 21 10/27/24 16:00 98.1 54 18 142/66 98 Room Air LABS: Laboratory: Test 10/27/24 20:04 10/27/24 16:15 10/26/24 07:56 10/26/24 05:05 Range/Units Whole Blood Glucose 237 #H 70-110 MG/DL White Blood Count 10.0 4.8-10.8 K/uL Red Blood Count 4.05 L 4.50-6.20 MIL/uL Hemoglobin 11.6 L 14.0-18.0 g/dL Hematocrit 34.6 L 42-54 % Mean Corpuscular Volume 85.4 79-99 fL Mean Corpuscular Hemoglobin 28.6 27.0-33.0 pg Mean Corpuscular Hemoglobin Concent 33.5 32.0-36.0 g/dL Red Cell Distribution Width 13.2 11.0-15.5 % Platelet Count 305 130-400 K/uL Mean Platelet Volume 10.6 H 7.5-10.5 fL Immature Granulocyte % (Auto) 0.3 0-1 % Neutrophils (%) (Auto) 59.6 40.0-77.0 % Lymphocytes (%) (Auto) 30.3 21.0-51.0 % Monocytes (%) (Auto) 6.1 3.0-13.0 % Eosinophils (%) (Auto) 2.6 0.0-8.0 % Basophils (%) (Auto) 1.1 0.0-5.0 % Neutrophils # (Auto) 6.0 1.8-7.7 K/uL Lymphocytes # (Auto) 3.0 1.0-4.8 K/uL Monocytes # (Auto) 0.6 0.1-1.0 K/uL Eosinophils # (Auto) 0.26 0.00-0.70 K/uL Basophils # (Auto) 0.11 0.00-0.20 K/uL Absolute Immature Granulocyte (auto 0.03 0-1 K/uL Nucleated Red Blood Cells 0.0 0.0-0.19 % Sodium Level 141 136-145 mmol/L Potassium Level 3.5 3.5-5.1 mmol/L Chloride Level 107 101-111 mmol/L Carbon Dioxide Level 29 21-32 mmol/L Blood Urea Nitrogen 17 7-18 mg/dL Creatinine 1.0 0.5-1.3 mg/dL Glomerular Filtration Rate Calc 91 >90 mL/min Random Glucose 166 H 70-105 mg/dL Total Calcium 8.7 8.5-10.1 mg/dL Prothrombin Time 10.3 9.6-11.6 SEC Prothromb Time International Ratio 0.97 0.85-1.15 Activated Partial Thromboplast Time 27.3 26.3-35.5 SEC Bedside Glucose Comment Notified Nurse Current Medications Medications (Trade) Dose Ordered Sig/Shiva Route PRN Reason Start Time Stop Time Status Last Admin Dose Admin Acetaminophen (TYLenol 325MG TAB) 650 mg Q6H PRN PO FEVER/MILD PAIN LEVEL 1-3 10/24/24 00:00 11/23/24 00:00 10/27/24 20:05 650 MG Acetaminophen (TYLenol 650MG SUPPOSITORY) 650 mg Q6H PRN RC FEVER / MILD PAIN 1-3 IF NPO 10/24/24 00:00 11/23/24 00:00 Aspirin (Aspirin 81mg Chew Tab) 81 mg DAILY PO 10/26/24 09:00 10/25/24 23:29 DC Aspirin (Aspirin 81mg Chew Tab) 81 mg DAILY PO 10/24/24 09:00 11/23/24 08:59 10/27/24 10:04 81 MG Atorvastatin Calcium (LIPItor 40MG) 40 mg HS PO 10/24/24 21:00 11/23/24 20:59 10/27/24 20:04 40 MG Clopidogrel Bisulfate (plaVIX 75MG) 75 mg DAILY PO 10/24/24 11:00 11/23/24 10:59 10/27/24 10:04 75 MG Dextrose (D50w) 50 ml AD PRN IV HYPOGLYCEMIA PROTOCOL 10/24/24 10:30 11/23/24 10:29 Diltiazem HCl (CARDIzem 120MG CD) 240 mg DAILY PO 10/27/24 09:00 11/26/24 08:59 10/27/24 10:03 240 MG Docusate Sodium (COLace 100MG CAP) 100 mg BID PRN PO c 10/24/24 00:00 11/23/24 00:00 Doxycycline Hyclate (Doxycycline 100mg+NS 250ml) 100 mg Q12H IV 10/24/24 00:00 11/03/24 00:00 10/27/24 13:44 100 MG Famotidine (Pepcid 20mg Tab) 20 mg DAILY PO 10/24/24 09:00 11/23/24 08:59 10/27/24 10:04 20 MG Glucagon (Glucagon 1mg Kit) 1 mg AD PRN IM HYPOGLYCEMIA PROTOCOL 10/24/24 10:30 11/23/24 10:29 Insulin Human Regular (humuLIN R 100 UNIT/ML 3ML) INSULIN SLIDING SCAL... ACHS SQ 10/24/24 07:30 11/23/24 07:29 10/27/24 20:07 10 UNIT Ipratropium Sylvia (AtrovENT UD) 0.5 mg [id number] IH 10/24/24 00:00 11/23/24 00:00 10/27/24 11:16 0.5 MG Labetalol HCl (TRANdate 20MG SYG) 10 mg Q2H PRN IV SBP GREATER THAN 160 10/24/24 00:00 11/23/24 00:00 Lactulose (Constulose 20gm/ 30ml Udcup) 20 gm Q6H PRN PO CONSTIPATION 10/24/24 00:00 11/23/24 00:00 Losartan Potassium (CozAAR 50 mg TAB) 50 mg BID PO 10/24/24 21:00 11/23/24 20:59 10/27/24 20:04 50 MG Magnesium Sulfate 50 ml @ 0 mls/hr PROTOCOL PRN IV MAGNESIUM PROTOCOL 10/24/24 10:30 11/23/24 10:29 Metoprolol Tartrate (loprESSOR) 25 mg BID PO 10/24/24 11:00 10/26/24 15:16 DC 10/26/24 08:16 25 MG Ondansetron HCl (zoFRAN 4MG INJ) 4 mg Q6H PRN IVP NAUSEA/VOMITING 10/24/24 00:00 11/23/24 00:00 Potassium Chloride 100 ml @ 100 mls/hr AD PRN IV POTASSIUM PROTOCOL 10/24/24 10:30 11/23/24 10:29 Potassium Chloride (K-Dur 10meq Sr Tab) 10 meq AD PRN PO POTASSIUM PROTOCOL 10/26/24 11:30 11/23/24 10:29 Potassium Chloride (K-Dur/Klor-Con 20meq) 10 meq AD PRN PO POTASSIUM PROTOCOL 10/24/24 10:30 10/26/24 11:11 DC Potassium Chloride (KCl 10% Elixir 20meq/15ml) 10 meq AD PRN PO POTASSIUM PROTOCOL 10/24/24 10:30 11/23/24 10:29 Sodium Chloride 500 ml @ 0 mls/hr Q0M IV 10/25/24 23:30 11/24/24 23:29 10/26/24 00:23 3 MLS/HR Sodium Chloride 1,000 ml @ 150 mls/hr Q6H40M IV 10/26/24 15:30 10/26/24 19:29 DC 10/26/24 16:03 150 MLS/HR Temazepam (restORIL 15 MG CAP) 15 mg HS PRN PO INSOMNIA/SLEEP 10/24/24 00:00 11/23/24 00:00 DIAGNOSTICS / RADIOLOGY: [ ] ASSESSMENT: Prominent bilateral interstitial markings, bronchitis vs vascular congestion LVEF 35-40%, stage II diastolic dysfunction, per echo on 06/14/2024 Cardiac silhouette is within normal limits. Acute kidney injury, GFR 48 (prior GFR 81 on 07/30/2024) Acute on chronic kidney disease, POA Leukocytosis Electrolyte derangement (hyponatremia, hypochloremia, hypocalcemia, hypomagnesemia) Diabetes mellitus with hyperglycemia Anemia chronic disease Cocaine abuse Proteinuria Glucosuria PLAN: Admit to medical floor with telemetry monitoring. Monitor respiratory status closely. Continue oxygen therapy as needed. Titrate oxygen p.r.n. to keep SpO2 equal to greater than 92%. Albuterol and Atrovent scheduled. Pulmicort nebulizer treatment b.i.d.. RT to provide IS and education on use. Robitussin DM as needed for cough. Start doxycycline 100 mg IV b.i.d.. EKGs series. 2D echo in a.m.. Nitroglycerin as needed for chest pain. Aspirin 81 mg p.o. daily. Resume home medication Aspirin and Plavix. Reconcile rest of home medications once provided. Atorvastatin 40 mg p.o. daily. Strict I&Os. Fluid restriction a 1200 mL in24 hours. P.r.n. medications for: Pain management, nausea, vomiting, hypertension, constipation. Glucometer checks a.c. and HS with insulin high sliding scale coverage as needed per protocol. Blood pressure checks every4 hours and as needed. Monitor renal and liver function. Monitor electrolytes and treat accordingly. A.m. labs: CBC, BNP, Mag, phos, TSH, A1c, D-DIMER. GI and DVT prophylaxis. YAZMIN RAMOS MD Oct 27, 2024 21:44
[2024-10-28] VITALS (11 sets, daily range): BP systolic 135–155; BP diastolic 58–87; PULSE 52–62; RESP 16–18; TEMP 97.2–98.1; O2SAT 96–98
[2024-10-28 04:30] LABS: PROTHROMBIN TIME 10.6 SEC (9.6-11.6)
[2024-10-28 04:31] LABS: PARTIAL THROMBOPLASTIN TIME 27.6 SEC (26.3-35.5)
--- NOTE | 2024-10-28 09:11 | PN ---
Patient is currently asymptomatic Physical exam is unchanged , clear chest and normal heart tones with no edema. Discussed with Dr. Lew and patient; we are in agreement that an EP study to screen for malignant arrhythmias as a cause for syncope is warranted, and the patient may require an AICD. Vitals/Labs Vital Signs Date Time Temp Pulse Resp B/P (MAP) Pulse Ox O2 Delivery O2 Flow Rate FiO2 10/28/24 08:31 98 Room Air* 0 21 10/28/24 08:01 97.9 55 18 145/70 Laboratory Tests 10/27/24 16:15 Medications Current Medications Albuterol 1 UDVIAL ONCE ONCE IH Last administered on 10/23/24 20:26; Start 10/23/24 at 20:00; Stop 10/23/24 at 20:01; Status DC Sodium Chloride 1,000 ml @ 0 mls/hr ONCE ONCE IV Last administered on 10/23/24 21:50; Start 10/23/24 at 22:00; Stop 10/23/24 at 22:01; Status DC Insulin Human Regular 5 unit ONCE ONCE SQ Last administered on 10/23/24 21:56; Start 10/23/24 at 22:00; Stop 10/23/24 at 22:01; Status DC Ipratropium [place] 0.5 mg [id number] IH Last administered on 10/28/24 06:28; Start 10/24/24 at 00:00; Stop 11/23/24 at 00:00 Doxycycline Hyclate 100 mg Q12H IV Last administered on 10/27/24at 23:06; Start 10/24/24 at 00:00; Stop 11/03/24 at 00:00 Famotidine 20 mg DAILY PO Last administered on 10/28/24 08:25; Start 10/24/24 at 09:00; Stop 11/23/24 at 08:59 Aspirin 81 mg DAILY PO Last administered on 10/28/24 08:26; Start 10/24/24 at 09:00; Stop 11/23/24 at 08:59 Acetaminophen 650 mg Q6H PRN PO Last administered on 10/28/24 08:26; Start 10/24/24 at 00:00; Stop 11/23/24 at 00:00 Acetaminophen 650 mg Q6H PRN RC; Start 10/24/24 at 00:00; Stop 11/23/24 at 00:00 Lactulose 20 gm Q6H PRN PO; Start 10/24/24 at 00:00; Stop 11/23/24 at 00:00 Docusate Sodium 100 mg BID PRN PO; Start 10/24/24 at 00:00; Stop 11/23/24 at 00:00 Temazepam 15 mg HS PRN PO; Start 10/24/24 at 00:00; Stop 11/23/24 at 00:00 Ondansetron HCl 4 mg Q6H PRN IVP; Start 10/24/24 at 00:00; Stop 11/23/24 at 00:00 Labetalol HCl 10 mg Q2H PRN IV; Start 10/24/24 at 00:00; Stop 11/23/24 at 00:00 Insulin Human Regular INSULIN SLIDING SCAL... ACHS SQ Last administered on 10/28/24at 06:49; Start 10/24/24 at 07:30; Stop 11/23/24 at 07:29 Dextrose 50 ml AD PRN IV; Start 10/24/24 at 10:30; Stop 11/23/24 at 10:29 Glucagon 1 mg AD PRN IM; Start 10/24/24 at 10:30; Stop 11/23/24 at 10:29 Potassium Chloride 100 ml @ 100 mls/hr AD PRN IV; Start 10/24/24 at 10:30; Stop 11/23/24 at 10:29 Potassium Chloride 10 meq AD PRN PO; Start 10/24/24 at 10:30; Stop 11/23/24 at 10:29 Potassium Chloride 10 meq AD PRN PO; Start 10/24/24 at 10:30; Stop 10/26/24 at 11:11; Status DC Magnesium Sulfate 50 ml @ 0 mls/hr PROTOCOL PRN IV; Start 10/24/24 at 10:30; Stop 11/23/24 at 10:29 Clopidogrel Bisulfate 75 mg DAILY PO Last administered on 10/28/24at 08:27; Start 10/24/24 at 11:00; Stop 11/23/24 at 10:59 Atorvastatin Calcium 40 mg HS PO Last administered on 10/27/24at 20:04; Start 10/24/24 at 21:00; Stop 11/23/24 at 20:59 Metoprolol Tartrate 25 mg BID PO Last administered on 10/26/24at 08:16; Start 10/24/24 at 11:00; Stop 10/26/24 at 15:16; Status DC Losartan Potassium 50 mg BID PO Last administered on 10/28/24at 08:27; Start 10/24/24 at 21:00; Stop 11/23/24 at 20:59 Guaifenesin 400 mg ONCE ONCE PO Last administered on 10/24/24at 13:18; Start 10/24/24 at 11:30; Stop 10/24/24 at 11:31; Status DC Sodium Chloride 500 ml @ 0 mls/hr Q0M IV Last administered on 10/26/24at 00:23; Start 10/25/24 at 23:30; Stop 11/24/24 at 23:29 Aspirin 81 mg DAILY PO; Start 10/26/24 at 09:00; Stop 10/25/24 at 23:29; Status DC Potassium Chloride 10 meq AD PRN PO; Start 10/26/24 at 11:30; Stop 11/23/24 at 10:29 Lidocaine HCl 20 ml STK-MED ONCE .ROUTE; Start 10/26/24 at 13:50; Stop 10/26/24 at 13:51; Status DC Iohexol 35,000 mg STK-MED ONCE IV; Start 10/26/24 at 13:51; Stop 10/26/24 at 13:51; Status DC Heparin Sodium (Porcine) 10,000 unit STK-MED ONCE .ROUTE; Start 10/26/24 at 13:51; Stop 10/26/24 at 13:51; Status DC Heparin Sodium/ Sodium Chloride 1,000 ml @ As Directed STK-MED ONCE IV; Start 10/26/24 at 13:51; Stop 10/26/24 at 13:51; Status DC Nitroglycerin 50 mg STK-MED ONCE .ROUTE; Start 10/26/24 at 13:52; Stop 10/26/24 at 13:52; Status DC Nicardipine HCl 25 mg STK-MED ONCE IV; Start 10/26/24 at 14:02; Stop 10/26/24 at 14:03; Status DC Sodium Bicarbonate 50 ml @ As Directed STK-MED ONCE .ROUTE; Start 10/26/24 at 14:04; Stop 10/26/24 at 14:05; Status DC Fentanyl Citrate 100 mcg STK-MED ONCE .ROUTE; Start 10/26/24 at 14:30; Stop 10/26/24 at 14:30; Status DC Midazolam HCl 2 mg STK-MED ONCE .ROUTE; Start 10/26/24 at 14:30; Stop 10/26/24 at 14:31; Status DC Atropine Sulfate 1 mg STK-MED ONCE IVP; Start 10/26/24 at 14:47; Stop 10/26/24 at 14:48; Status DC Sodium Chloride 1,000 ml @ 150 mls/hr Q6H40M IV Last administered on 10/26/24at 16:03; Start 10/26/24 at 15:30; Stop 10/26/24 at 19:29; Status DC Diltiazem HCl 240 mg DAILY PO Last administered on 10/28/24at 08:26; Start 10/27/24 at 09:00; Stop 11/26/24 at 08:59 ALEN MCCARTHY MD Oct 28, 2024 09:11
--- NOTE | 2024-10-28 17:48 | PN ---
[facility] PROGRESS NOTE Date of Service: Oct 28, 2024 Time of Service: 17:47 SUBJECTIVE: [ ] 10/24/24 patient was seen and examined in the holding. Case discussed with the RN. He is doing better. His hyponatremia has resolved. His renal function has improved to creatinine of 1.4 His glycemic control is also improving. Continue current management 10/25/24 patient was seen and examined in the holding. Case discussed with the RN. He denies n/v/f/c 10/26/24 patient was seen and examined. Case discussed with RN. Continues to do better. We will increase his diet and physical activity 10/27 24 patient was seen and examined. Case discussed with RN /per Dr Gee, He had syncopal episode concerning for ventricular arrhythmia in the setting of an ischemic cardiomyopathy and underlying coronary artery disease. At this point we recommend electrophysiology study with possible ICD if he is found to have inducible ventricular tachycardia versus implanted loop recorder if unremarkable 10/28/24 patient was seen and examined. Case discussed with RN/patient jet chest pain /per Dr Gee, He had syncopal episode concerning for ventricular arrhythmia in the setting of an ischemic cardiomyopathy and underlying coronary artery disease. At this point we recommend electrophysiology study with possible ICD if he is found to have inducible ventricular tachycardia versus implanted loop recorder if unremarkable REVIEW OF SYSTEMS 12-point ROS reviewed with patient. All pertinent positives mentioned above. Otherwise negative, noncontributory, or non-pertinent. PHYSICAL EXAM GENERAL APPEARANCE: The patient is awake, alert, and oriented, in no acute cardiopulmonary distress. NEUROLOGICAL: Cranial nerves II-XII grossly intact. Motor is 5/5 in bilateral upper and lower extremities proximal to distal. No sensory deficits. HEENT: Face is symmetric. Pupils are equal and reactive. Extraocular movements are intact. NECK: Supple. No JVD. No thyromegaly. No submental, submandibular, pre- /postauricular, occipital or supraclavicular lymphadenopathy. CHEST: Normal chest expansion. No Telemetry. LUNGS: Absence of any rales, rhonchi or any wheezing. CARDIOVASCULAR: Regular. S1 and S2 normal. No appreciable rubs, murmurs or gallops. ABDOMEN: Soft, nontender, and nondistended. There is no rebound, voluntary guarding, or rigidity. : Deferred. No Chong. EXTREMITIES: Non-edematous and not cyanotic. No clubbing. Good capillary refill. Left TMA. SKIN: No skin breakdown. Vital Signs (last 8hr) Date Time Temp Pulse Resp B/P (MAP) Pulse Ox O2 Delivery O2 Flow Rate FiO2 10/28/24 16:00 97.2 53 18 135/74 96 10/28/24 12:00 97.3 57 18 148/74 98 Room Air 10/28/24 11:06 52 18 LABS: Laboratory: Test 10/28/24 15:55 10/28/24 03:53 10/27/24 16:15 Range/Units Whole Blood Glucose 148 H 70-110 MG/DL Prothrombin Time 10.6 9.6-11.6 SEC Prothromb Time International Ratio 1.00 0.85-1.15 Activated Partial Thromboplast Time 27.6 26.3-35.5 SEC White Blood Count 10.0 4.8-10.8 K/uL Red Blood Count 4.05 L 4.50-6.20 MIL/uL Hemoglobin 11.6 L 14.0-18.0 g/dL Hematocrit 34.6 L 42-54 % Mean Corpuscular Volume 85.4 79-99 fL Mean Corpuscular Hemoglobin 28.6 27.0-33.0 pg Mean Corpuscular Hemoglobin Concent 33.5 32.0-36.0 g/dL Red Cell Distribution Width 13.2 11.0-15.5 % Platelet Count 305 130-400 K/uL Mean Platelet Volume 10.6 H 7.5-10.5 fL Immature Granulocyte % (Auto) 0.3 0-1 % Neutrophils (%) (Auto) 59.6 40.0-77.0 % Lymphocytes (%) (Auto) 30.3 21.0-51.0 % Monocytes (%) (Auto) 6.1 3.0-13.0 % Eosinophils (%) (Auto) 2.6 0.0-8.0 % Basophils (%) (Auto) 1.1 0.0-5.0 % Neutrophils # (Auto) 6.0 1.8-7.7 K/uL Lymphocytes # (Auto) 3.0 1.0-4.8 K/uL Monocytes # (Auto) 0.6 0.1-1.0 K/uL Eosinophils # (Auto) 0.26 0.00-0.70 K/uL Basophils # (Auto) 0.11 0.00-0.20 K/uL Absolute Immature Granulocyte (auto 0.03 0-1 K/uL Nucleated Red Blood Cells 0.0 0.0-0.19 % Sodium Level 141 136-145 mmol/L Potassium Level 3.5 3.5-5.1 mmol/L Chloride Level 107 101-111 mmol/L Carbon Dioxide Level 29 21-32 mmol/L Blood Urea Nitrogen 17 7-18 mg/dL Creatinine 1.0 0.5-1.3 mg/dL Glomerular Filtration Rate Calc 91 >90 mL/min Random Glucose 166 H 70-105 mg/dL Total Calcium 8.7 8.5-10.1 mg/dL Current Medications Medications (Trade) Dose Ordered Sig/Shiva Route PRN Reason Start Time Stop Time Status Last Admin Dose Admin Acetaminophen (TYLenol 325MG TAB) 650 mg Q6H PRN PO FEVER/MILD PAIN LEVEL 1-3 10/24/24 00:00 11/23/24 00:00 10/28/24 08:26 650 MG Acetaminophen (TYLenol 650MG SUPPOSITORY) 650 mg Q6H PRN RC FEVER / MILD PAIN 1-3 IF NPO 10/24/24 00:00 11/23/24 00:00 Aspirin (Aspirin 81mg Chew Tab) 81 mg DAILY PO 10/26/24 09:00 10/25/24 23:29 DC Aspirin (Aspirin 81mg Chew Tab) 81 mg DAILY PO 10/24/24 09:00 11/23/24 08:59 10/28/24 08:26 81 MG Atorvastatin Calcium (LIPItor 40MG) 40 mg HS PO 10/24/24 21:00 11/23/24 20:59 10/27/24 20:04 40 MG Clopidogrel Bisulfate (plaVIX 75MG) 75 mg DAILY PO 10/24/24 11:00 11/23/24 10:59 10/28/24 08:27 75 MG Dextrose (D50w) 50 ml AD PRN IV HYPOGLYCEMIA PROTOCOL 10/24/24 10:30 11/23/24 10:29 Diltiazem HCl (CARDIzem 120MG CD) 240 mg DAILY PO 10/27/24 09:00 11/26/24 08:59 10/28/24 08:26 240 MG Docusate Sodium (COLace 100MG CAP) 100 mg BID PRN PO c 10/24/24 00:00 11/23/24 00:00 Doxycycline Hyclate (Doxycycline 100mg+NS 250ml) 100 mg Q12H IV 10/24/24 00:00 11/03/24 00:00 10/28/24 11:59 100 MG Famotidine (Pepcid 20mg Tab) 20 mg DAILY PO 10/24/24 09:00 11/23/24 08:59 10/28/24 08:25 20 MG Glucagon (Glucagon 1mg Kit) 1 mg AD PRN IM HYPOGLYCEMIA PROTOCOL 10/24/24 10:30 11/23/24 10:29 Insulin Human Regular (humuLIN R 100 UNIT/ML 3ML) INSULIN SLIDING SCAL... ACHS SQ 10/24/24 07:30 11/23/24 07:29 10/28/24 12:09 6 UNIT Ipratropium [place] (AtrovENT UD) 0.5 mg [id number] IH 10/24/24 00:00 11/23/24 00:00 10/28/24 11:06 0.5 MG Labetalol HCl (TRANdate 20MG SYG) 10 mg Q2H PRN IV SBP GREATER THAN 160 10/24/24 00:00 11/23/24 00:00 Lactulose (Constulose 20gm/ 30ml Udcup) 20 gm Q6H PRN PO CONSTIPATION 10/24/24 00:00 11/23/24 00:00 Losartan Potassium (CozAAR 50 mg TAB) 50 mg BID PO 10/24/24 21:00 11/23/24 20:59 10/28/24 08:27 50 MG Magnesium Sulfate 50 ml @ 0 mls/hr PROTOCOL PRN IV MAGNESIUM PROTOCOL 10/24/24 10:30 11/23/24 10:29 Metoprolol Tartrate (loprESSOR) 25 mg BID PO 10/24/24 11:00 10/26/24 15:16 DC 10/26/24 08:16 25 MG Ondansetron HCl (zoFRAN 4MG INJ) 4 mg Q6H PRN IVP NAUSEA/VOMITING 10/24/24 00:00 11/23/24 00:00 Potassium Chloride 100 ml @ 100 mls/hr AD PRN IV POTASSIUM PROTOCOL 10/24/24 10:30 11/23/24 10:29 Potassium Chloride (K-Dur 10meq Sr Tab) 10 meq AD PRN PO POTASSIUM PROTOCOL 10/26/24 11:30 11/23/24 10:29 Potassium Chloride (K-Dur/Klor-Con 20meq) 10 meq AD PRN PO POTASSIUM PROTOCOL 10/24/24 10:30 10/26/24 11:11 DC Potassium Chloride (KCl 10% Elixir 20meq/15ml) 10 meq AD PRN PO POTASSIUM PROTOCOL 10/24/24 10:30 11/23/24 10:29 Sodium Chloride 500 ml @ 0 mls/hr Q0M IV 10/25/24 23:30 11/24/24 23:29 10/26/24 00:23 3 MLS/HR Sodium Chloride 1,000 ml @ 150 mls/hr Q6H40M IV 10/26/24 15:30 10/26/24 19:29 DC 10/26/24 16:03 150 MLS/HR Temazepam (restORIL 15 MG CAP) 15 mg HS PRN PO INSOMNIA/SLEEP 10/24/24 00:00 11/23/24 00:00 DIAGNOSTICS / RADIOLOGY: [ ] ASSESSMENT: Prominent bilateral interstitial markings, bronchitis vs vascular congestion LVEF 35-40%, stage II diastolic dysfunction, per echo on 06/14/2024 Cardiac silhouette is within normal limits. Acute kidney injury, GFR 48 (prior GFR 81 on 07/30/2024) Acute on chronic kidney disease, POA Leukocytosis Electrolyte derangement (hyponatremia, hypochloremia, hypocalcemia, hypomagnesemia) Diabetes mellitus with hyperglycemia Anemia chronic disease Cocaine abuse Proteinuria Glucosuria PLAN: Admit to medical floor with telemetry monitoring. Monitor respiratory status closely. Continue oxygen therapy as needed. Titrate oxygen p.r.n. to keep SpO2 equal to greater than 92%. Albuterol and Atrovent scheduled. Pulmicort nebulizer treatment b.i.d.. RT to provide IS and education on use. Robitussin DM as needed for cough. Start doxycycline 100 mg IV b.i.d.. EKGs series. 2D echo in a.m.. Nitroglycerin as needed for chest pain. Aspirin 81 mg p.o. daily. Resume home medication Aspirin and Plavix. Reconcile rest of home medications once provided. Atorvastatin 40 mg p.o. daily. Strict I&Os. Fluid restriction a 1200 mL in24 hours. P.r.n. medications for: Pain management, nausea, vomiting, hypertension, co nstipation. Glucometer checks a.c. and HS with insulin high sliding scale coverage as needed per protocol. Blood pressure checks every4 hours and as needed. Monitor renal and liver function. Monitor electrolytes and treat accordingly. A.m. labs: CBC, BNP, Mag, phos, TSH, A1c, D-DIMER. GI and DVT prophylaxis. YAZMIN RAMOS MD Oct 28, 2024 17:48
[2024-10-29] VITALS (20 sets, daily range): BP systolic 140–190; BP diastolic 58–97; PULSE 54–75; RESP 16–18; TEMP 97.8–98.6; O2SAT 98–99
[2024-10-29] MEDS ORDERED: LIDOCAINE HCL 400MG/20ML VIAL ONE ×2 (10:04→12:04)
[2024-10-29] MEDS ORDERED: HEParin-NS 1,000 UNIT/500 ML 500 ML IV ONE (10:04)
[2024-10-29] MEDS ORDERED: BUPIvacaine/PF 0.25% 30ML VIAL IJ ONE (10:04)
[2024-10-29] MEDS ORDERED: HEParin 10,000 UNIT/10ML (1,000 UNIT/ML) VIAL ONE (10:07)
[2024-10-29] MEDS ORDERED: FENTanyl CITRate PF 50 MCG/1 ML 2ML VIAL ONE (10:54)
[2024-10-29] MEDS ORDERED: MIDAZOLAM HCL 1 MG/ML 2ML VIAL ONE ×3 (10:54→12:06)
[2024-10-29] MEDS ORDERED: ISOPROTERENOL HCL 0.2 MG/ML AMP/VIAL/BAG ONE (11:03)
[2024-10-29] MEDS ORDERED: BACITRACIN 1 EACH PACKET TP ONE (12:21)
[2024-10-29] MEDS ORDERED: acetaMINOPHEN 500 MG TABLET PO PRN (12:30)
[2024-10-29] MEDS ORDERED: acetaMINOPHEN WITH coDEINE 1 TAB TAB PO PRN (12:30)
--- NOTE | 2024-10-29 20:49 | PN ---
[facility] PROGRESS NOTE Date of Service: Oct 29, 2024 Time of Service: 20:48 SUBJECTIVE: [ ] 10/24/24 patient was seen and examined in the holding. Case discussed with the RN. He is doing better. His hyponatremia has resolved. His renal function has improved to creatinine of 1.4 His glycemic control is also improving. Continue current management 10/25/24 patient was seen and examined in the holding. Case discussed with the RN. He denies n/v/f/c 10/26/24 patient was seen and examined. Case discussed with RN. Continues to do better. We will increase his diet and physical activity 10/27 24 patient was seen and examined. Case discussed with RN /per Dr Gee, He had syncopal episode concerning for ventricular arrhythmia in the setting of an ischemic cardiomyopathy and underlying coronary artery disease. At this point we recommend electrophysiology study with possible ICD if he is found to have inducible ventricular tachycardia versus implanted loop recorder if unremarkable 10/28/24 patient was seen and examined. Case discussed with RN/patient jet chest pain /per Dr Gee, He had syncopal episode concerning for ventricular arrhythmia in the setting of an ischemic cardiomyopathy and underlying coronary artery disease. At this point we recommend electrophysiology study with possible ICD if he is found to have inducible ventricular tachycardia versus implanted loop recorder if unremarkable 10/29/24 Case discussed with RN/patient jet chest pain /down fo EPP/Likely dc in AM REVIEW OF SYSTEMS 12-point ROS reviewed with patient. All pertinent positives mentioned above. Otherwise negative, noncontributory, or non-pertinent. PHYSICAL EXAM GENERAL APPEARANCE: The patient is awake, alert, and oriented, in no acute cardiopulmonary distress. NEUROLOGICAL: Cranial nerves II-XII grossly intact. Motor is 5/5 in bilateral upper and lower extremities proximal to distal. No sensory deficits. HEENT: Face is symmetric. Pupils are equal and reactive. Extraocular movements are intact. NECK: Supple. No JVD. No thyromegaly. No submental, submandibular, pre-/postauricular, occipital or supraclavicular lymphadenopathy. CHEST: Normal chest expansion. No Telemetry. LUNGS: Absence of any rales, rhonchi or any wheezing. CARDIOVASCULAR: Regular. S1 and S2 normal. No appreciable rubs, murmurs or gallops. ABDOMEN: Soft, nontender, and nondistended. There is no rebound, voluntary guarding, or rigidity. : Deferred. No Chong. EXTREMITIES: Non-edematous and not cyanotic. No clubbing. Good capillary refill. Left TMA. SKIN: No skin breakdown. Vital Signs (last 8hr) Date Time Temp Pulse Resp B/P (MAP) Pulse Ox O2 Delivery O2 Flow Rate FiO2 10/29/24 20:09 98.1 67 18 155/85 100 Room Air 10/29/24 18:44 74 18 10/29/24 18:44 75 18 N/A Room Air 21 10/29/24 18:15 66 18 145/58 99 Room Air 10/29/24 17:15 66 18 143/97 99 Room Air 10/29/24 16:15 98.1 61 18 162/79 99 Room Air 10/29/24 15:15 69 18 158/90 98 Room Air 10/29/24 14:45 54 18 155/80 100 Room Air 10/29/24 14:15 54 18 154/77 98 Room Air 10/29/24 14:00 58 18 161/92 96 Room Air 10/29/24 13:45 58 18 169/94 98 Room Air 10/29/24 13:30 58 18 170/91 98 Room Air 10/29/24 13:15 98.1 60 18 154/93 97 Room Air LABS: Laboratory: Test 10/29/24 19:40 10/28/24 03:53 Range/Units Whole Blood Glucose 264 #H 70-110 MG/DL Prothrombin Time 10.6 9.6-11.6 SEC Prothromb Time International Ratio 1.00 0.85-1.15 Activated Partial Thromboplast Time 27.6 26.3-35.5 SEC Current Medications Medications (Trade) Dose Ordered Sig/Shiva Route PRN Reason Start Time Stop Time Status Last Admin Dose Admin Acetaminophen (TYLenol 325MG TAB) 650 mg Q6H PRN PO FEVER/MILD PAIN LEVEL 1-3 10/24/24 00:00 11/23/24 00:00 10/28/24 18:00 650 MG Acetaminophen (TYLenol 500MG TAB) 1,000 mg Q6H PRN PO MILD PAIN (1-3) 10/29/24 12:30 11/28/24 12:29 Acetaminophen (TYLenol 650MG SUPPOSITORY) 650 mg Q6H PRN RC FEVER / MILD PAIN 1-3 IF NPO 10/24/24 00:00 11/23/24 00:00 Acetaminophen/ Codeine Phosphate (TYLenol-coDEINE TAB) 2 tab Q4H PRN PO MODERATE PAIN LEVEL 4 TO 10 10/29/24 12:30 11/28/24 12:29 Aspirin (Aspirin 81mg Chew Tab) 81 mg DAILY PO 10/26/24 09:00 10/25/24 23:29 DC Aspirin (Aspirin 81mg Chew Tab) 81 mg DAILY PO 10/24/24 09:00 11/23/24 08:59 10/28/24 08:26 81 MG Atorvastatin Calcium (LIPItor 40MG) 40 mg HS PO 10/24/24 21:00 11/23/24 20:59 10/28/24 23:25 40 MG Clopidogrel Bisulfate (plaVIX 75MG) 75 mg DAILY PO 10/24/24 11:00 11/23/24 10:59 10/28/24 08:27 75 MG Dextrose (D50w) 50 ml AD PRN IV HYPOGLYCEMIA PROTOCOL 10/24/24 10:30 11/23/24 10:29 Diltiazem HCl (CARDIzem 120MG CD) 240 mg DAILY PO 10/27/24 09:00 11/26/24 08:59 10/28/24 08:26 240 MG Docusate Sodium (COLace 100MG CAP) 100 mg BID PRN PO c 10/24/24 00:00 11/23/24 00:00 Doxycycline Hyclate (Doxycycline 100mg+NS 250ml) 100 mg Q12H IV 10/24/24 00:00 11/03/24 00:00 10/28/24 23:31 100 MG Famotidine (Pepcid 20mg Tab) 20 mg DAILY PO 10/24/24 09:00 11/23/24 08:59 10/28/24 08:25 20 MG Glucagon (Glucagon 1mg Kit) 1 mg AD PRN IM HYPOGLYCEMIA PROTOCOL 10/24/24 10:30 11/23/24 10:29 Insulin Human Regular (humuLIN R 100 UNIT/ML 3ML) INSULIN SLIDING SCAL... ACHS SQ 10/24/24 07:30 11/23/24 07:29 10/29/24 16:36 4 UNIT Ipratropium [place] (AtrovENT UD) 0.5 mg [id number] IH 10/24/24 00:00 11/23/24 00:00 10/29/24 18:43 0.5 MG Labetalol HCl (TRANdate 20MG SYG) 10 mg Q2H PRN IV SBP GREATER THAN 160 10/24/24 00:00 11/23/24 00:00 Lactulose (Constulose 20gm/ 30ml Udcup) 20 gm Q6H PRN PO CONSTIPATION 10/24/24 00:00 11/23/24 00:00 Losartan Potassium (CozAAR 50 mg TAB) 50 mg BID PO 10/24/24 21:00 11/23/24 20:59 10/28/24 23:25 50 MG Magnesium Sulfate 50 ml @ 0 mls/hr PROTOCOL PRN IV MAGNESIUM PROTOCOL 10/24/24 10:30 11/23/24 10:29 Metoprolol Tartrate (loprESSOR) 25 mg BID PO 10/24/24 11:00 10/26/24 15:16 DC 10/26/24 08:16 25 MG Ondansetron HCl (zoFRAN 4MG INJ) 4 mg Q6H PRN IVP NAUSEA/VOMITING 10/24/24 00:00 11/23/24 00:00 Potassium Chloride 100 ml @ 100 mls/hr AD PRN IV POTASSIUM PROTOCOL 10/24/24 10:30 11/23/24 10:29 Potassium Chloride (K-Dur 10meq Sr Tab) 10 meq AD PRN PO POTASSIUM PROTOCOL 10/26/24 11:30 11/23/24 10:29 Potassium Chloride (K-Dur/Klor-Con 20meq) 10 meq AD PRN PO POTASSIUM PROTOCOL 10/24/24 10:30 10/26/24 11:11 DC Potassium Chloride (KCl 10% Elixir 20meq/15ml) 10 meq AD PRN PO POTASSIUM PROTOCOL 10/24/24 10:30 11/23/24 10:29 Sodium Chloride 500 ml @ 0 mls/hr Q0M IV 10/25/24 23:30 11/24/24 23:29 10/26/24 00:23 3 MLS/HR Sodium Chloride 1,000 ml @ 150 mls/hr Q6H40M IV 10/26/24 15:30 10/26/24 19:29 DC 10/26/24 16:03 150 MLS/HR Temazepam (restORIL 15 MG CAP) 15 mg HS PRN PO INSOMNIA/SLEEP 10/24/24 00:00 11/23/24 00:00 DIAGNOSTICS / RADIOLOGY: [ ] ASSESSMENT: Prominent bilateral interstitial markings, bronchitis vs vascular congestion LVEF 35-40%, stage II diastolic dysfunction, per echo on 06/14/2024 Cardiac silhouette is within normal limits. Acute kidney injury, GFR 48 (prior GFR 81 on 07/30/2024) Acute on chronic kidney disease, POA Leukocytosis Electrolyte derangement (hyponatremia, hypochloremia, hypocalcemia, hypomagnesemia) Diabetes mellitus with hyperglycemia Anemia chronic disease Cocaine abuse Proteinuria Glucosuria PLAN: Admit to medical floor with telemetry monitoring. Monitor respiratory status closely. Continue oxygen therapy as needed. Titrate oxygen p.r.n. to keep SpO2 equal to greater than 92%. Albuterol and Atrovent scheduled. Pulmicort nebulizer treatment b.i.d.. RT to provide IS and education on use. Robitussin DM as needed for cough. Start doxycycline 100 mg IV b.i.d.. EKGs series. 2D echo in a.m.. Nitroglycerin as needed for chest pain. Aspirin 81 mg p.o. daily. Resume home medication Aspirin and Plavix. Reconcile rest of home medications once provided. Atorvastatin 40 mg p.o. daily. Strict I&Os. Fluid restriction a 1200 mL in24 hours. P.r.n. medications for: Pain management, nausea, vomiting, hypertension, co nstipation. Glucometer checks a.c. and HS with insulin high sliding scale coverage as needed per protocol. Blood pressure checks every4 hours and as needed. Monitor renal and liver function. Monitor electrolytes and treat accordingly. A.m. labs: CBC, BNP, Mag, phos, TSH, A1c, D-DIMER. GI and DVT prophylaxis. YAZMIN RAMOS MD Oct 29, 2024 20:49
[2024-10-30 03:08] VITALS: BP 152/78; PULSE 65; RESP 17; TEMP 98
[2024-10-30 05:59] VITALS: PULSE 63; RESP 18
[2024-10-30 06:02] VITALS: PULSE 63; RESP 18; O2SAT 100
[2024-10-30 07:50] VITALS: O2SAT 98
[2024-10-30 08:01] VITALS: BP 160/94; PULSE 65; RESP 18; TEMP 98.2
[2024-10-30 12:00] VITALS: BP 149/79; PULSE 71; RESP 20; TEMP 97.9
--- NOTE | 2024-10-30 14:24 | DS ---
Discharge Summary Hospital Course Summary: his is a 54-year-old male with a history of diabetes mellitus with neurological and circulatory manifestations, history of coronary artery disease with previous coronary stenting and cocaine abuse. He was admitted 10/23/2024 secondary to chest pain with syncope. He underwent echocardiogram 10/24/2024 which dem onstrates an ejection fraction of 35 to 40% with moderate LVH, stage II diastolic dysfunction, mildly dilated left atrium, mild mitral valve regurgitation and normal pericardium. He subsequently underwent left heart catheterization 10/26/2024 which showed diffuse disease in the circumflex, and distal LAD not amenable to intervention due to diffuse disease and small caliber. His initial EKG shows sinus rhythm with early repolarization, heart rate 60 bpm. He has been in sinus rhythm with heart rates in the 50s to 60s on telemetry cardiology evaluated the patient and recommended that he see electrophysiology. Dr. Fagan evaluated with the patient and felt that even syncope malignant arrhythmias need to be ruled out with an electrophysiological study which she underwent. After this study Current they recommended that he can be discharged in a stable condition [employer] Operator(s): Cardiology Assessment/Plan: ASSESSMENT: Prominent bilateral interstitial markings, bronchitis vs vascular congestion LVEF 35-40%, stage II diastolic dysfunction, per echo on 06/14/2024 Cardiac silhouette is within normal limits. Acute kidney injury, GFR 48 (prior GFR 81 on 07/30/2024) Acute on chronic kidney disease, POA Leukocytosis Electrolyte derangement (hyponatremia, hypochloremia, hypocalcemia, hypomagnesemia) Diabetes mellitus with hyperglycemia Anemia chronic disease Cocaine abuse Proteinuria Glucosuria PLAN: Admit to medical floor with telemetry monitoring. Monitor respiratory status closely. Continue oxygen therapy as needed. Titrate oxygen p.r.n. to keep SpO2 equal to greater than 92%. Albuterol and Atrovent scheduled. Pulmicort nebulizer treatment b.i.d.. RT to provide IS and education on use. Robitussin DM as needed for cough. Start doxycycline 100 mg IV b.i.d.. EKGs series. 2D echo in a.m.. Nitroglycerin as needed for chest pain. Aspirin 81 mg p.o. daily. Resume home medication Aspirin and Plavix. Reconcile rest of home medications once provided. Atorvastatin 40 mg p.o. daily. Strict I&Os. Fluid restriction a 1200 mL in24 hours. P.r.n. medications for: Pain management, nausea, vomiting, hypertension, constipation. Glucometer checks a.c. and HS with insulin high sliding scale coverage as needed per protocol. Blood pressure checks every4 hours and as needed. Monitor renal and liver function. Monitor electrolytes and treat accordingly. A.m. labs: CBC, BNP, Mag, phos, TSH, A1c, D-DIMER. GI and DVT prophylaxis. Home Medications: Active Scripts Doxycycline Hyclate (Doxycycline Hyclate) 100 Mg Tablet, 100 MG PO DAILYBKFST for 7 Days, #8 TAB Prov:LUH RAMACHANDRAN MD 06/16/24 Metoprolol Tartrate (Lopressor) 25 Mg Tab, 25 MG PO BID, #60 TAB 0 Refills Prov:LORELEI BRASHER MD 05/31/24 Losartan Potassium (Cozaar) 50 Mg Tablet, 50 MG PO BID, #60 TAB 0 Refills Prov:LORELEI BRASHER MD 05/31/24 Clopidogrel Bisulfate (Plavix) 75 Mg Tablet, 75 MG PO DAILY, #30 TAB 0 Refills Prov:LORELEI BRASHER MD 05/31/24 Insulin Lispro (Humalog) 100 Unit/Ml Insuln.pen, 8 UNITS SQ TIDAC, #3 SYRINGE 0 Refills Prov:KARELY LANDON 08/06/23 Insulin Glargine,Hum.rec.anlog (Lantus Solostar) 100 Unit/Ml (3 Ml) Insuln.pen, 25 UNIT SQ DAILY, #2 SYRINGE 0 Refills Prov:KARELY LANDONP 08/06/23 Atorvastatin Calcium (Atorvastatin Calcium) 40 Mg Tablet, 40 MG PO HS, #60 TAB 0 Refills Prov:KARELY LANDONP 08/06/23 Aspirin (ASPIRIN 81 MG ECTAB) 81 Mg Ectab, 81 MG PO DAILY, #60 TAB.EC 0 Refills Prov:KARELY LANDON 08/06/23 Time spent arranging discharge: 31-60 minutes YAZMIN RAMOS MD Oct 30, 2024 14:24
[2024-10-30] MEDS ORDERED: DILT120C89 PO (14:27)
== END 2024-10-30 17:00 | disposition home or self-care (01) | DRG 286 ==
LOC: EDH 19:33 → EDHIP 21:51 → 4BH 10-24 21:59
PROVIDERS: ADMIT Family Medicine; ATTEND Family Medicine
PROC: 4A023N7 Measurement of Cardiac Sampling and Pressure, Left Heart, Percutaneous Approach (ICD-10-PCS; principal; 2024-10-26)
PROC: B2111ZZ Fluoroscopy of Multiple Coronary Arteries using Low Osmolar Contrast (ICD-10-PCS; 2024-10-26)
PROC: B2151ZZ Fluoroscopy of Left Heart using Low Osmolar Contrast (ICD-10-PCS; 2024-10-26)
DX: I25.10 Atherosclerotic heart disease of native coronary artery without angina pectoris (principal); N17.0 Acute kidney failure with tubular necrosis; E87.1 Hypo-osmolality and hyponatremia; I25.5 Ischemic cardiomyopathy; D63.1 Anemia in chronic kidney disease; E11.51 Type 2 diabetes mellitus with diabetic peripheral angiopathy without gangrene; E11.22 Type 2 diabetes mellitus with diabetic chronic kidney disease; E11.65 Type 2 diabetes mellitus with hyperglycemia; E83.42 Hypomagnesemia; E83.51 Hypocalcemia; J40 Bronchitis, not specified as acute or chronic; E87.8 Other disorders of electrolyte and fluid balance, not elsewhere classified; F14.10 Cocaine abuse, uncomplicated; I12.9 Hypertensive chronic kidney disease with stage 1 through stage 4 chronic kidney disease, or unspecified chronic kidney disease; N18.9 Chronic kidney disease, unspecified; D72.829 Elevated white blood cell count, unspecified; E11.319 Type 2 diabetes mellitus with unspecified diabetic retinopathy without macular edema; E11.42 Type 2 diabetes mellitus with diabetic polyneuropathy; E78.00 Pure hypercholesterolemia, unspecified; F17.200 Nicotine dependence, unspecified, uncomplicated; Z79.82 Long term (current) use of aspirin; Z95.5 Presence of coronary angioplasty implant and graft; Z79.899 Other long term (current) drug therapy
CPT/HCPCS: 33285; 36415; 71045; 76770; 80048; 80305; 81001; 82010; 82550; 82948; 83735; 83880; 84100; 84443; 84484; 85025; 85027; 85378; 85610; 85730; 87635; 87804; 93005; 93306; 93356; 93458; 93620; 94640; 94664; 99156; 99157; 99285; C1730; C1769; C1894; G0378; J0461; J1644; J1815; J2250; J3010; J3490; Q9967; A4649; C1760; C1764; J0665; Q9965

== ENCOUNTER 2025-03-09 14:32 | Emergency (ER) | payer BC, MEDICAID ==
[~2025-03-09] VITALS: Ht 160 cm; Wt 80.7 kg
[~2025-03-09 14:32] MED LIST changes: -AEC81 PO; -ATOR40TA71 PO; -CLOP-31 PO; -DOXY100T2 PO; -INSU100I15 SQ; -INSU3INS3 SQ; +LEVO-70 PO; +LISI10TA24 PO; -LOSA-418 PO; +METO-391 PO; -METO25 PO; +PANT40TA PO; +SPIR25TA6 PO
--- NOTE | 2025-03-09 14:38 | ERN ---
ED Note History of Present Illness Stated Complaint: SOB,HIGH BLOOD SUGARS,RT SIDE SHOULDER PAIN Chief Complaint: Hyperglycemia Time Seen by MD: 14:35 Dictation: PATIENT IS A 54-YEAR-OLD MALE COMING IN TODAY WITH COMPLAINTS OF ELEVATED BLOOD SUGAR FOR THE LAST SEVERAL DAYS WITHOUT NAUSEA VOMITING NO DIARRHEA. STATES HIS PRIMARY CARE DOCTOR IS DR. THMOAS, HAS NOT BEEN TO SEE DR. THOMAS ABOUT THIS. Allergies: Coded Allergies: piperacillin (Unverified Allergy, Mild, 12/21/24) GENERALIZED ITCHING tazobactam (Unverified Allergy, Mild, 12/21/24) GENERALIZED ITCHING Home Meds Active Scripts Levofloxacin (Levofloxacin) 500 Mg Tablet, 1 TAB PO DAILY for 5 Days, #5 TAB 0 Refills Prov:IVON MANCIA MD 12/23/24 Pantoprazole Sodium (Protonix) 40 Mg Tablet.dr, 40 MG PO BID, #60 TAB Prov:IVON MANCIA MD 12/23/24 Reported Medications Lisinopril (Lisinopril) 10 Mg Tablet, 1 TAB PO DAILY for 30 Days, #30 TAB 0 Refills 12/22/24 Spironolactone (Spironolactone) 25 Mg Tablet, 1 TAB PO DAILY for 30 Days, #30 TAB 0 Refills 12/22/24 Metoprolol Succinate (Metoprolol Succinate) 50 Mg Tab.er.24h, 1 TAB PO DAILY for 30 Days, #30 TAB 0 Refills 12/22/24 Past Medical History Past Medical History: Diabetes-Type II, High Cholesterol, Hypertension Additional Past Medical Hx: PVD Surgical History: Other Surgical History Other: left tma Family History: Negative Social History: Negative RN Note Reviewed/Agreed w/PFSH: Yes Review of System Dictation CONSTITUTIONAL: NEGATIVE EXCEPT FOR HPI HEAD/FACE: NEGATIVE EXCEPT FOR HPI EENT: NEGATIVE EXCEPT FOR HPI RESPIRATORY: NEGATIVE EXCEPT FOR HPI GASTROINTESTINAL/ABDOMINAL: NEGATIVE EXCEPT FOR HPI GENITOURINARY: NEGATIVE EXCEPT FOR HPI MUSCULOSKELETAL: NEGATIVE EXCEPT FOR HPI INTEGUMENTARY: NEGATIVE EXCEPT FOR HPI NEUROLOGICAL/PSYCH: NEGATIVE EXCEPT FOR HPI HEMATOLOGIC/LYMPHATIC: NEGATIVE EXCEPT FOR HPI ALL SYSTEMS NEGATIVE, EXCEPT NOTED ABOVE. 13 POINT REVIEW OF SYSTEMS ASSESSED AND ALL NEGATIVE EXCEPT FOR ABOVE. Initial Vital Sign VS Vital Signs Date Time Temp Pulse Resp B/P (MAP) Pulse Ox O2 Delivery O2 Flow Rate FiO2 03/09/25 14:36 98.6 85 18 156/83 98 Room Air 0 03/09/25 14:43 21 Physical Exam Dictation VITAL SIGNS REVIEWED GENERAL APPEARANCE: ALERT, ORIENTED X 3, NO ACUTE DISTRESS, WELL DEVELOPED, NOURISHED. HEAD AND FACE: NON-TRAUMATIC. EYES: PERRL, PINK CONJUNCTIVAS, EYELID NO TRAUMA, ANTERIOR CHAMBER WITH ARCUS SENILIS. EARS: PINNAS INTACT AND NO SIGNS OF TRAUMA OR ERYTHEMA EAR CANALS CLEAR AND NO DISCHARGE TM NO ERYTHEMA NOSE: NO DISCHARGE, NO BLEEDING. OROPHARYNX: MOUTH NORMAL, TONGUE PINK, PHARYNX CLEAR,NO ERYTHEMA, TONSILS NO EXUDATES, NO ABSCESSES NOTED, MUCOUS MEMBRANE MOIST NECK: SUPPLE, NON-TENDER, NO THYROMEGALY, NO MASSES, NO JVD, NO BRUITS BREAST:DEFERRED CHEST:NO TENDERNESS, NO CREPITUS, NO PARADOXICAL MOVEMENT, NO RETRACTIONS LUNGS:CLEAR, WELL-VENTILATED, SYMMETRIC, NO RALES, NO WHEEZING, NO RHONCHI, NO STRIDOR, GOOD BREATH SOUNDS BILATERALLY HEART: REGULAR RATE, REGULAR RHYTHM, NO MURMUR, NO GALLOPS VASCULAR: NO PERIPHERAL EDEMA, ABDOMEN: SOFT, POSITIVE BOWEL SOUNDS, NONDISTENDED, NO GUARDING, NONTENDER, NO REBOUND, NO MASSES NO HEPATOMEGALY, NO SPLENOMEGALY, NO MOELLER'S SIGN, NO HERNIAS. RECTAL: DEFERRED GENITAL: DEFERRED NEUROLOGICAL: NORMAL SPEECH, MOTOR FUNCTION INTACT, SENSORY FUNCTION INTACT MUSCULOSKELETAL: NECK NONTENDER, FULL RANGE OF MOTION, BACK NONTENDER, FULL RANGE OF MOTION, EXTREMITIES: NONTENDER, FULL RANGE OF MOTION SKIN: COLOR PINK, DRY, NO TURGOR, NO RASH, NO LACERATIONS, NO ABRASIONS, NO CONTUSIONS. LYMPHATIC: DEFERRED Results (Laboratory/Radiology) Laboratory/Radiology Laboratory Tests Test 03/09/25 14:55 03/09/25 15:03 03/09/25 16:59 Urine Color LIGHT-YELLOW (YELLOW) Urine Appearance CLEAR (CLEAR) Urine pH 5.5 (5.0-8.0) Urine Specific Lott 1.018 (1.001-1.031) Urine Protein 100 mg/dL (NEGATIVE) H Urine Glucose (UA) >=1000 mg/dL (NEGATIVE) H Urine Ketones NEGATIVE mg/dL (NEGATIVE) Urine Occult Blood SMALL (NEGATIVE) H Urine Nitrate NEGATIVE (NEGATIVE) Urine Bilirubin NEGATIVE mg/dL (NEGATIVE) Urine Urobilinogen 0.2 mg/dL (0.2-1.0) Urine Leukocyte Esterase NEGATIVE Lise/uL Urine RBC 2-5 /HPF (0-1) H Urine WBC 2-5 /HPF (0-1) H Urine Squamous Epithelial Cells RARE /HPF (0-2) Urine Bacteria None /HPF (None Seen) White Blood Count 8.3 K/uL (4.8-10.8) Red Blood Count 3.87 MIL/uL (4.50-6.20) L Hemoglobin 10.9 g/dL (14.0-18.0) L Hematocrit 32.6 % (42-54) L Mean Corpuscular Volume 84.2 fL (79-99) Mean Corpuscular Hemoglobin 28.2 pg (27.0-33.0) Mean Corpuscular Hemoglobin Concent 33.4 g/dL (32.0-36.0) Red Cell Distribution Width 13.6 % (11.0-15.5) Platelet Count 311 K/uL (130-400) Mean Platelet Volume 11.0 fL (7.5-10.5) H Immature Granulocyte % (Auto) 0.5 % (0-1) Neutrophils (%) (Auto) 55.9 % (40.0-77.0) Lymphocytes (%) (Auto) 31.8 % (21.0-51.0) Monocytes (%) (Auto) 7.6 % (3.0-13.0) Eosinophils (%) (Auto) 2.9 % (0.0-8.0) Basophils (%) (Auto) 1.3 % (0.0-5.0) Neutrophils # (Auto) 4.6 K/uL (1.8-7.7) Lymphocytes # (Auto) 2.6 K/uL (1.0-4.8) Monocytes # (Auto) 0.6 K/uL (0.1-1.0) Eosinophils # (Auto) 0.24 K/uL (0.00-0.70) Basophils # (Auto) 0.11 K/uL (0.00-0.20) Absolute Immature Granulocyte (auto 0.04 K/uL (0-1) Nucleated Red Blood Cells 0.0 % (0.0-0.19) Sodium Level 136 mmol/L (136-145) Potassium Level 3.7 mmol/L (3.5-5.1) Chloride Level 103 mmol/L (101-111) Carbon Dioxide Level 26 mmol/L (21-32) Blood Urea Nitrogen 30 mg/dL (7-18) H Creatinine 1.3 mg/dL (0.5-1.3) Glomerular Filtration Rate Calc 66 mL/min (>90) Random Glucose 360 mg/dL (70-105) H Whole Blood Ketones Quantitative < 0.1 mmol/L (0.0-0.6) Total Calcium 8.4 mg/dL (8.5-10.1) L Whole Blood Glucose 133 MG/DL (70-110) H Labs Reviewed?: Yes ED Course ED Course Orders Procedure Category Date Status Time Ketone Blood LAB 03/09/25 Complete Quantitative 14:36 Cbc With Differential LAB 03/09/25 Complete 14:36 Urinalysis Profile LAB 03/09/25 Complete 14:36 0.9%Nacl 1000ml (Ns PHA 03/09/25 Complete 1000ml) 15:00 Basic Metabolic Panel LAB 03/09/25 Complete 14:36 Bedside Glucose CPOE 03/09/25 Transmitted Fingerstick 15:02 Insulin Regular, PHA 03/09/25 Complete Human 3ml (Humulin R 16:00 Bedside Glucose CPOE 03/09/25 Transmitted Fingerstick 16:46 Current Medications Medications (Trade) Dose Ordered Sig/Shiva Route PRN Reason Start Time Stop Time Status Last Admin Dose Admin Insulin Human Regular (humuLIN R 100 UNIT/ML 3ML) 12 unit ONCE ONCE IV 03/09/25 16:00 03/09/25 16:01 DC 03/09/25 16:17 Sodium Chloride 1,000 ml @ 0 mls/hr ONCE ONCE IV 03/09/25 15:00 03/09/25 15:01 DC 03/09/25 15:12 Vital Signs Date Time Temp Pulse Resp B/P (MAP) Pulse Ox O2 Delivery O2 Flow Rate FiO2 03/09/25 17:25 97.5 65 17 132/68 98 Room Air* 0 21 03/09/25 14:43 98.6 85 18 156/83 98 Room Air* 0 21 03/09/25 14:36 98.6 85 18 156/83 98 Room Air 0 1535/SERUM GLUCOSE 360, NO KETONES. WE WILL GIVE1 L OF FLUIDS AND 12 UNITS HUMULIN REGULAR INSULIN IV PUSH. PATIENT WILL BE DISCHARGED HOME TO FOLLOW UP WITH HIS PRIMARY CARE DOCTOR TOMORROW. 1710/REPEAT BLOOD SUGAR 133 AFTER FLUIDS AND HUMULIN REGULAR INSULIN. PATIENT DISCHARGED HOME TO CONTINUE HIS DIABETIC MEDICATIONS AND SEE HIS PRIMARY CARE DOCTOR IN THE NEXT 1-2 DAYS Medical Decision Making MDM MDM: DIFFERENTIAL DIAGNOSIS: DKA/HYPERGLYCEMIA/ELECTROLYTE IMBALANCE/DEHYDRATION/UTI RATIONALE: TESTS CONSIDERED AND ORDERED SECONDARY TO SHARED DECISION MAKING INCLUDE: LABS/KETONES PREVIOUS OUTSIDE RECORDS REVIEWED: OLD ER VISITS. RISK OF COMPLICATION AND/OR MORBIDITY OR MORTALITY OF PATIENT MANAGEMENT: NONE MEDICATIONS-PER MEDICATION RECONCILIATION NEED FOR HOSPITALIZATION: PATIENT DOES NOT MEET CRITERIA FOR HOSPITALIZATION. NO NEED FOR EMERGENCY MAJOR/MINOR SURGERY: NO THERE ARE NO SOCIAL CONCERNS WITH THIS PATIENT. PRESCRIPTION DRUG MANAGEMENT NONE PRESCRIPTIONS WILL INCLUDE SYMPTOMATIC CARE PATIENT'S PRIOR EXTERNAL MEDICAL RECORDS FROM OTHER ER VISITS WERE REVIEWED BY ME INDICATED. PRIOR TESTING AND RESULTS FROM PREVIOUS VISITS WERE REVIEWED. PRIOR TESTS WERE TAKEN INTO ACCOUNT WITH MEDICAL DECISION MAKING AND RESOURCE UTILIZATION, INDEPENDENT HISTORIAN/HISTORIANS WERE USED TO OBTAIN COMPLETE MEDICAL HISTORY. I INDEPENDENTLY INTERPRETED THE TEST THAT WERE PERFORMED, RESULTS WERE REVIEWED BY ME AND CONSIDERED FINDINGS ON RADIOLOGY IF ORDERED. MEDICAL MANAGEMENT AND EXAMINATION INTERPRETATION DISCUSSIONS WERE HAD BY ME WITH OTHER QUALIFIED HEALTHCARE PROFESSIONALS INDICATED FOR THE PATIENT'S CARE. DX & DISP Disposition: Discharge Departure Impression: Primary Impression: Uncontrolled diabetes mellitus Additional Impressions: Mild dehydration, Stage 3 chronic kidney disease Condition: Stable Additional Instructions: FOLLOW-UP WITH PRIMARY CARE PROVIDER IN 1 TO 2 DAYS. TAKE MEDICATIONS DIRECTED HERE IN THE EMERGENCY ROOM. OKAY TO CONTINUE HOME MEDICATIONS UNLESS OTHERWISE DISCUSSED DURING YOUR VISIT IN THE EMERGENCY ROOM TODAY. RETURN TO YOUR NEAREST EMERGENCY ROOM IF SYMPTOMS WORSEN OR IF THERE IS NO IMPROVEMENT. CALL 911 IF YOU NEED IMMEDIATE ASSISTANCE. TAKE TYLENOL OR MOTRIN [id number] NEEDED AND IF NO CONTRAINDICATIONS ARE PRESENT. INCREASE ORAL HYDRATION. A WOUND CULTURE OR URINE CULTURE WAS ORDERED HERE IN THE EMERGENCY ROOM DEPARTMENT PLEASE FOLLOW-UP WITH PRIMARY CARE PROVIDER AND ADVISE THEM TO GET REPEAT PORTS FROM OUR FACILITY. IF YOU HAD ANY MADDIE WRAP/SPLINTS THAT WERE APPLIED HERE, PLEASE DO NOT REMOVE THEM UNTIL YOU SEE YOUR PRIMARY CARE OR SPECIALTY. CONTINUE ALL YOUR DIABETIC MEDICATIONS AT HOME FROM YOUR DOCTOR. SEE YOUR PRIMARY CARE DOCTOR FOR FOLLOW UP AND MANAGEMENT OF YOUR DIABETES IN THE NEXT 1- 2 DAYS. Referrals: ELAN THOMAS MD (PCP) Time of Disposition: 17:13 I have reviewed the case, and I agree with, Diagnosis and Plan DO CORTES VISION SPECIALIST Mar 09, 2025 14:38 MARU DE LOS SANTOS DO Mar 09, 2025 17:57
[2025-03-09 15:04] LABS: APPEARANCE,URINE CLEAR (CLEAR); GLUCOSE, URINE (UA) >=1000 mg/dL (NEGATIVE); LEUKOCYTE ESTERASE ,URINE NEGATIVE Leu/uL (NEGATIVE); NITRATE,URINE NEGATIVE (NEGATIVE); OCCULT BLOOD,URINE SMALL (NEGATIVE)
[2025-03-09 15:08] LABS: ADD UA MICROSCOPIC YES
[2025-03-09 15:10] LABS: SQUAMOUS EPITHELIAL CELL,UR RARE /HPF (0-2)
[2025-03-09] MEDS: 0.9%NACL 1000ML 1,000 ML IV ONE (15:12)
[2025-03-09 15:18] LABS: IMMATURE GRANULOCYTE ABSOLUTE 0.04 K/uL (0-1); NUCLEATED RED BLOOD CELLS 0.0 % (0.0-0.19); PLATELET COUNT (AUTO) 311 K/uL (130-400); RED BLOOD CELL COUNT(AUTO) 3.87 MIL/uL (4.50-6.20); RED CELL DISTRIBUTION WIDTH 13.6 % (11.0-15.5); WHITE BLOOD COUNT (AUTO) 8.3 K/uL (4.8-10.8)
[2025-03-09 15:27] LABS: CREATININE 1.3 mg/dL (0.5-1.3); GLOMERULAR FILTR. RATE CALC 66 mL/min (>90); GLUCOSE,RANDOM 360 mg/dL (70-105); SODIUM SERUM 136 mmol/L (136-145); UREA NITROGEN, BLOOD 30 mg/dL (7-18)
[2025-03-09 17:25] VITALS: BP 132/68; PULSE 65; RESP 17; TEMP 97.6; O2SAT 98
== END 2025-03-09 17:33 | disposition home or self-care (01) ==
LOC: EDH 14:32
DX: I12.9 Hypertensive chronic kidney disease with stage 1 through stage 4 chronic kidney disease, or unspecified chronic kidney disease (principal); E11.22 Type 2 diabetes mellitus with diabetic chronic kidney disease; N18.30 Chronic kidney disease, stage 3 unspecified; E11.65 Type 2 diabetes mellitus with hyperglycemia; E86.0 Dehydration; E11.51 Type 2 diabetes mellitus with diabetic peripheral angiopathy without gangrene; E78.00 Pure hypercholesterolemia, unspecified; Z79.899 Other long term (current) drug therapy; Z88.0 Allergy status to penicillin
CPT/HCPCS: 99284; 96374; 80048; 85025; 82948; 82010; 81001; 36415; J1815; J7030

== ENCOUNTER 2025-07-31 13:39 | Emergency (ER) | payer BC, MEDICAID ==
[~2025-07-31] VITALS: Ht 160 cm; Wt 78.5 kg
[~2025-07-31 13:39] MED LIST changes: -LEVO-70 PO
--- NOTE | 2025-07-31 13:50 | ERN ---
ED Note History of Present Illness Stated Complaint: LT FOOT ULCER Chief Complaint: Wound Check Time Seen by MD: 13:43 Dictation: PATIENT IS A 55-YEAR-OLD MALE COMING IN TODAY COMPLAINING OF AN ULCER TO THE LEFT PLANTAR FOOT THAT HE JUST NOTED THIS MORNING. HE SAID HE HAS HAD NO FEVER NO CHILLS NO NAUSEA VOMITING. HE STATES HE HAS A DIABETIC IN HIS BLOOD SUGAR OVER THE LAST COUPLE OF DAYS HAS BEEN GREATER THAN 400. HE DENIES FEVER CHILLS IN HIS NOT BEEN TO SEE HIS PRIMARY CARE DOCTOR Allergies: Coded Allergies: piperacillin (Unverified Allergy, Mild, 12/21/24) GENERALIZED ITCHING tazobactam (Unverified Allergy, Mild, 12/21/24) GENERALIZED ITCHING Home Meds Active Scripts Pantoprazole Sodium (Protonix) 40 Mg Tablet.dr, 40 MG PO BID, #60 TAB Prov:IVON MANCIA MD 12/23/24 Reported Medications Lisinopril (Lisinopril) 10 Mg Tablet, 1 TAB PO DAILY for 30 Days, #30 TAB 0 Refills 12/22/24 Spironolactone (Spironolactone) 25 Mg Tablet, 1 TAB PO DAILY for 30 Days, #30 TAB 0 Refills 12/22/24 Metoprolol Succinate (Metoprolol Succinate) 50 Mg Tab.er.24h, 1 TAB PO DAILY for 30 Days, #30 TAB 0 Refills 12/22/24 Past Medical History Past Medical History: Diabetes-Type II, High Cholesterol, Heart Disease Additional Past Medical Hx: CKD, LOOP RECORDER, cardiac stents, left eye blindness Surgical History: Other Surgical History Other: cardiac stents Family History: Negative Social History: Negative RN Note Reviewed/Agreed w/PFSH: Yes Review of System Dictation CONSTITUTIONAL: NEGATIVE EXCEPT FOR HPI HEAD/FACE: NEGATIVE EXCEPT FOR HPI EENT: NEGATIVE EXCEPT FOR HPI RESPIRATORY: NEGATIVE EXCEPT FOR HPI GASTROINTESTINAL/ABDOMINAL: NEGATIVE EXCEPT FOR HPI GENITOURINARY: NEGATIVE EXCEPT FOR HPI MUSCULOSKELETAL: NEGATIVE EXCEPT FOR HPI INTEGUMENTARY: NEGATIVE EXCEPT FOR HPI PLANTAR ULCER LEFT FOOT NEUROLOGICAL/PSYCH: NEGATIVE EXCEPT FOR HPI HEMATOLOGIC/LYMPHATIC: NEGATIVE EXCEPT FOR HPI ALL SYSTEMS NEGATIVE, EXCEPT NOTED ABOVE. 13 POINT REVIEW OF SYSTEMS ASSESSED AND ALL NEGATIVE EXCEPT FOR ABOVE. Initial Vital Sign VS Vital Signs Date Time Temp Pulse Resp B/P (MAP) Pulse Ox O2 Delivery O2 Flow Rate FiO2 07/31/25 13:42 97.5 72 18 146/80 98 Room Air 0 07/31/25 14:10 21 Physical Exam Dictation VITAL SIGNS REVIEWED GENERAL APPEARANCE: ALERT, ORIENTED X 3, NO ACUTE DISTRESS, WELL DEVELOPED, NOURISHED. HEAD AND FACE: NON-TRAUMATIC. EYES: PERRL, PINK CONJUNCTIVAS, EYELID NO TRAUMA, ANTERIOR CHAMBER WITH ARCUS SENILIS. EARS: PINNAS INTACT AND NO SIGNS OF TRAUMA OR ERYTHEMA EAR CANALS CLEAR AND NO DISCHARGE TM NO ERYTHEMA NOSE: NO DISCHARGE, NO BLEEDING. OROPHARYNX: MOUTH NORMAL, TONGUE PINK, PHARYNX CLEAR,NO ERYTHEMA, TONSILS NO EXUDATES, NO ABSCESSES NOTED, MUCOUS MEMBRANE MOIST NECK: SUPPLE, NON-TENDER, NO THYROMEGALY, NO MASSES, NO JVD, NO BRUITS BREAST:DEFERRED CHEST:NO TENDERNESS, NO CREPITUS, NO PARADOXICAL MOVEMENT, NO RETRACTIONS LUNGS:CLEAR, WELL-VENTILATED, SYMMETRIC, NO RALES, NO WHEEZING, NO RHONCHI, NO STRIDOR, GOOD BREATH SOUNDS BILATERALLY HEART: REGULAR RATE, REGULAR RHYTHM, NO MURMUR, NO GALLOPS VASCULAR: NO PERIPHERAL EDEMA, ABDOMEN: SOFT, POSITIVE BOWEL SOUNDS, NONDISTENDED, NO GUARDING, NONTENDER, NO REBOUND, NO MASSES NO HEPATOMEGALY, NO SPLENOMEGALY, NO MOELLER'S SIGN, NO HERNIAS. RECTAL: DEFERRED GENITAL: DEFERRED NEUROLOGICAL: NORMAL SPEECH, MOTOR FUNCTION INTACT, SENSORY FUNCTION INTACT MUSCULOSKELETAL: NECK NONTENDER, FULL RANGE OF MOTION, BACK NONTENDER, FULL RANG E OF MOTION, EXTREMITIES: NONTENDER, FULL RANGE OF MOTION SKIN: COLOR PINK, DRY, NO TURGOR, NO RASH, NO LACERATIONS, NO ABRASIONS, NO CONTUSIONS. LYMPHATIC: DEFERRED Results (Laboratory/Radiology) Laboratory/Radiology Laboratory Tests Test 07/31/25 14:10 White Blood Count 9.3 K/uL (4.8-10.8) Red Blood Count 4.19 MIL/uL (4.50-6.20) L Hemoglobin 12.0 g/dL (14.0-18.0) L Hematocrit 37.1 % (42-54) L Mean Corpuscular Volume 88.5 fL (79-99) Mean Corpuscular Hemoglobin 28.6 pg (27.0-33.0) Mean Corpuscular Hemoglobin Concent 32.3 g/dL (32.0-36.0) Red Cell Distribution Width 13.2 % (11.0-15.5) Platelet Count 319 K/uL (130-400) Mean Platelet Volume 10.9 fL (7.5-10.5) H Immature Granulocyte % (Auto) 0.4 % (0-1) Neutrophils (%) (Auto) 59.2 % (40.0-77.0) Lymphocytes (%) (Auto) 29.5 % (21.0-51.0) Monocytes (%) (Auto) 7.3 % (3.0-13.0) Eosinophils (%) (Auto) 2.4 % (0.0-8.0) Basophils (%) (Auto) 1.2 % (0.0-5.0) Neutrophils # (Auto) 5.5 K/uL (1.8-7.7) Lymphocytes # (Auto) 2.7 K/uL (1.0-4.8) Monocytes # (Auto) 0.7 K/uL (0.1-1.0) Eosinophils # (Auto) 0.22 K/uL (0.00-0.70) Basophils # (Auto) 0.11 K/uL (0.00-0.20) Absolute Immature Granulocyte (auto 0.04 K/uL (0-1) Nucleated Red Blood Cells 0.0 % (0.0-0.19) Sodium Level 135 mmol/L (136-145) L Potassium Level 4.4 mmol/L (3.5-5.1) Chloride Level 98 mmol/L (101-111) L Carbon Dioxide Level 29 mmol/L (21-32) Blood Urea Nitrogen 19 mg/dL (7-18) H Creatinine 1.4 mg/dL (0.5-1.3) H Glomerular Filtration Rate Calc 60 mL/min (>90) Random Glucose 378 mg/dL (70-105) H Lactic Acid Level 2.0 mmol/L (0.8-2.5) Total Calcium 7.8 mg/dL (8.5-10.1) L Labs Reviewed?: Yes ED Course ED Course Orders Procedure Category Date Status Time Blood Cult [id number] 07/31/25 In Process 13:47 Lactic Acid LAB 07/31/25 Complete 13:47 Foot Comp 3+Vws Lt RAD 07/31/25 Resulted 13:47 Cbc With Differential LAB 07/31/25 Complete 13:47 Urinalysis Profile LAB 07/31/25 In Process 13:47 0.9%Nacl 1000ml (Ns PHA 07/31/25 Complete 1000ml) 14:00 Basic Metabolic Panel LAB 07/31/25 Complete 13:47 Current Medications Medications (Trade) Dose Ordered Sig/Shiva Route PRN Reason Start Time Stop Time Status Last Admin Dose Admin Sodium Chloride 1,000 ml @ 0 mls/hr ONCE ONCE IV 07/31/25 14:00 07/31/25 14:01 DC 07/31/25 14:50 Vital Signs Date Time Temp Pulse Resp B/P (MAP) Pulse Ox O2 Delivery O2 Flow Rate FiO2 07/31/25 14:10 98.6 68 28 157/78 95 Room Air* 0 21 07/31/25 13:42 97.5 72 18 146/80 98 Room Air 0 1632/SPOKE WITH PATIENT ABOUT HIS LABS TO INCLUDE HIS GLUCOSE. HE STATES HE DOES NOT TAKE HIS LANTUS BECAUSE IT MAKES HIM HUNGRY HE HAS NOT DISCUSSED WITH HIS PRIMARY CARE DOCTOR AND HAS NOT SEEN HIM IN TWO MONTHS. HE AGREES HE WILL FOLLOW HIM TOMORROW TAKE HIS LANTUS WHEN HE GETS HOME. Medical Decision Making MDM MDM: DIFFERENTIAL DIAGNOSIS: DIABETIC FOOT/SEPSIS/DIABETIC COMPLICATIONS/DKA/ELECTROLYTE IMBALANCE/DEHYDRATION/SEPSIS RATIONALE: TESTS CONSIDERED AND ORDERED SECONDARY TO SHARED DECISION MAKING INCLUDE: PREVIOUS OUTSIDE RECORDS REVIEWED: OLD ER VISITS. RISK OF COMPLICATION AND/OR MORBIDITY OR MORTALITY OF PATIENT MANAGEMENT: NONE MEDICATIONS-PER MEDICATION RECONCILIATION NEED FOR HOSPITALIZATION: PATIENT DOES NOT MEET CRITERIA FOR HOSPITALIZATION. LABS/RADIOLOGY TO GO HOME NEED FOR EMERGENCY MAJOR/MINOR SURGERY: NO PATIENT REFUSES STATES HE WANTS THERE ARE NO SOCIAL CONCERNS WITH THIS PATIENT. PRESCRIPTION DRUG MANAGEMENT CLINDAMYCIN PRESCRIPTIONS WILL INCLUDE SYMPTOMATIC CARE PATIENT'S PRIOR EXTERNAL MEDICAL RECORDS FROM OTHER ER VISITS WERE REVIEWED BY ME INDICATED. PRIOR TESTING AND RESULTS FROM PREVIOUS VISITS WERE REVIEWED. PRIOR TESTS WERE TAKEN INTO ACCOUNT WITH MEDICAL DECISION MAKING AND RESOURCE UTILIZATION, INDEPENDENT HISTORIAN/HISTORIANS WERE USED TO OBTAIN COMPLETE MEDICAL HISTORY. I INDEPENDENTLY INTERPRETED THE TEST THAT WERE PERFORMED, RESULTS WERE REVIEWED BY ME AND CONSIDERED FINDINGS ON RADIOLOGY IF ORDERED. MEDICAL MANAGEMENT AND EXAMINATION INTERPRETATION DISCUSSIONS WERE HAD BY ME WITH OTHER QUALIFIED HEALTHCARE PROFESSIONALS INDICATED FOR THE PATIENT'S CARE. DX & DISP Disposition: Discharge Departure Impression: Primary Impression: Left foot pain Additional Impressions: Uncontrolled diabetes mellitus, Dehydration, Medically noncompliant, Hypocalcemia, Anemia, chronic renal failure Condition: Stable Scripts Calcium Carbonate (Calcium) 500 Mg Calcium (1250 Mg) Tablet 1 TAB PO BID for 30 Days, #60 TAB 0 Refills Prov: DO CORTES 07/31/25 Additional Instructions: FOLLOW-UP WITH PRIMARY CARE PROVIDER IN 1 TO 2 DAYS. TAKE MEDICATIONS DIRECTED HERE IN THE EMERGENCY ROOM. OKAY TO CONTINUE HOME MEDICATIONS UNLESS OTHERWISE DISCUSSED DURING YOUR VISIT IN THE EMERGENCY ROOM TODAY. RETURN TO YOUR NEAREST EMERGENCY ROOM IF SYMPTOMS WORSEN OR IF THERE IS NO IMPROVEMENT. CALL 911 IF YOU NEED IMMEDIATE ASSISTANCE. TAKE TYLENOL OR MOTRIN [id number] NEEDED AND IF NO CONTRAINDICATIONS ARE PRESENT. INCREASE ORAL HYDRATION. A WOUND CULTURE OR URINE CULTURE WAS ORDERED HERE IN THE [facility] ROOM DEPARTMENT PLEASE FOLLOW-UP WITH PRIMARY CARE PROVIDER AND ADVISE THEM TO GET REPEAT PORTS FROM OUR FACILITY. IF YOU HAD ANY MADDIE WRAP/SPLINTS THAT WERE APPLIED HERE, PLEASE DO NOT REMOVE THEM UNTIL YOU SEE YOUR PRIMARY CARE OR SPECIALTY. INCREASE YOUR WATER INTAKE. TAKE YOUR LANTUS DIRECTED FROM DR. ELAN THOMAS AND SEE HIM FRIDAY OR FRIDAY FOR FOLLOW UP AND MANAGEMENT. PLZ LET HIM KNOW YOUR NOT TAKEN YOUR LANTUS DUE TO SIDE EFFECTS TAKE CALCIUM DIRECTED UNTIL GONE.. Referrals: ELAN THOMAS MD (PCP) Time of Disposition: 16:33 I have reviewed the case, and I agree with, Diagnosis and Plan DO CORTES Jul 31, 2025 13:50
[2025-07-31 14:23] LABS: IMMATURE GRANULOCYTE ABSOLUTE 0.04 K/uL (0-1); NUCLEATED RED BLOOD CELLS 0.0 % (0.0-0.19); PLATELET COUNT (AUTO) 319 K/uL (130-400); RED BLOOD CELL COUNT(AUTO) 4.19 MIL/uL (4.50-6.20); RED CELL DISTRIBUTION WIDTH 13.2 % (11.0-15.5); WHITE BLOOD COUNT (AUTO) 9.3 K/uL (4.8-10.8)
[2025-07-31] MEDS: 0.9%NACL 1000ML 1,000 ML IV ONE (14:50)
[2025-07-31 14:52] LABS: CREATININE 1.4 mg/dL (0.5-1.3); GLOMERULAR FILTR. RATE CALC 60.0 mL/min (>90); GLUCOSE,RANDOM 378.0 mg/dL (70-105); SODIUM SERUM 135.0 mmol/L (136-145); UREA NITROGEN, BLOOD 19.0 mg/dL (7-18)
--- NOTE | 2025-07-31 15:32 | HMCIMG ---
EXAM: XR left Foot, 3Views. CLINICAL HISTORY: CHRONIC LEFT PLANTAR FOOT DIABETIC ULCER COMPARISON: None provided. FINDINGS: BONES: Amputation is present at the level of the mid metatarsal bones. The bony phalanges are nonvisualized due to amputation. The bony stump of the metatarsal bone shows sclerosisa nd osteophytic lippings. No signs of bony osteomyelitis are noted. JOINTS: No dislocation. The joint spaces distal to the amputation are nonvisualized. The remaining visualized joint spaces appear maintained. SOFT TISSUES: Marked subcutaneous tissue edema is seen. Calcification in the tibial and peroneal vessels are noted. IMPRESSION: 1. 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 2. Vascular calcifications in the tibial and peroneal vessels are noted. 3. Marked subcutaneous tissue edema is seen. /[place]
[2025-07-31 16:33] LABS: APPEARANCE,URINE CLEAR (CLEAR); GLUCOSE, URINE (UA) >=1000 mg/dL (NEGATIVE); LEUKOCYTE ESTERASE ,URINE NEGATIVE Leu/uL (NEGATIVE); NITRATE,URINE NEGATIVE (NEGATIVE); OCCULT BLOOD,URINE +- (TRACE) (NEGATIVE)
[2025-07-31 16:34] LABS: ADD UA MICROSCOPIC YES
[2025-07-31] MEDS ORDERED: CALC-1038 PO (16:34)
[2025-07-31 16:35] LABS: HYALINE CASTS, URINE 0-1 /LPF (0-1 /LPF); SQUAMOUS EPITHELIAL CELL,UR RARE /HPF (0-2)
[2025-07-31 16:53] VITALS: BP 170/85; PULSE 65; RESP 16; TEMP 98.7; O2SAT 98
--- NOTE | 2025-07-31 16:54 | NUR ---
DC PATIENT WAS DC'D BY DO CORTES CREATIVE PRODUCER I DC'D PATIENTS IV WITH CATH STILL INTACT AND APPLIED 2X2 GAUZE WITH COBAN I EXPLAINED TO PATIENT TO FOLLOW UP WITH PCP, PROVIDED INFO BASED ON DIAGNOSIS, PRESCRIPTIONS AND ANSWERED ANY FOLLOW UP QUESTIONS PAIENT AMBULATED OUT OF ED, NO COMPLICATIONS
== END 2025-07-31 16:52 | disposition home or self-care (01) ==
LOC: EDH 13:39
DX: M79.672 Pain in left foot (principal); E11.22 Type 2 diabetes mellitus with diabetic chronic kidney disease; E11.621 Type 2 diabetes mellitus with foot ulcer; E11.65 Type 2 diabetes mellitus with hyperglycemia; E78.00 Pure hypercholesterolemia, unspecified; E83.51 Hypocalcemia; E86.0 Dehydration; N18.9 Chronic kidney disease, unspecified; Z79.899 Other long term (current) drug therapy; Z88.0 Allergy status to penicillin; Z91.199 Patient's noncompliance with other medical treatment and regimen due to unspecified reason; Z95.5 Presence of coronary angioplasty implant and graft
CPT/HCPCS: 36415; 73630; 80048; 81001; 83605; 85025; 87040; 96360; 99284